=== PATIENT | female | born 1950 | race Caucasian/White ===

== ENCOUNTER 2016-11-25 19:14 | Inpatient (IN) ==
[2016-11-25 21:11] LABS: Basophils % 0.1 %; Eosinophils % 0.2 %; Hematocrit 30.5 % (35.3-44.9); Hemoglobin 10.8 g/dL (11.5-15.4); Immature Granulocytes % 0.8 % (0-4); Lymphocytes # 1.5 K/mcL (0.6-4.6); Lymphocytes % 12.7 %; Mean Corpuscular HGB Conc 35.4 g/dL (31.6-35.5); Mean Corpuscular Hemoglobin 30.3 pg (28.0-33.3); Mean Corpuscular Volume 85.7 fL (83.0-100.0); Mean Platelet Volume 9.7 fL (9.4-12.4); Monocytes # 0.9 K/mcL (0.0-1.3); Monocytes % 7.9 %; Platelet Count 370 K/mcL (140-400); Red Blood Count 3.56 M/mcL (3.82-4.97); Red Cell Distribution Width 16.8 % (11.5-14.5); Segmented Neutrophils % 78.3 %
[2016-11-25 21:16] LABS: Calcium 8.1 mg/dL (8.6-10.8); Potassium 2.6 mEq/L (3.5-4.5)
[2016-11-25 21:34] LABS: Platelet Estimate Normal (Normal)
--- NOTE | 2016-11-25 22:11 | Emergency Department Note ---
START Narrative - START START: I examined this patient and my medical decision-making was reviewed with the COMPUTER TERMINAL OPERATOR/PA/Advanced Practice Nurse/Resident Physician. I agree with the documented findings, disposition and treatment plan as described except to the extent set forth below. ED attending note: Patient seen with emergency medicine resident Dr. Kamara. Please see a copy of his note for details of the H&P, evaluation, management and disposition of this patient. We independently had [id number] contact with the patient Briefly: 66-year-old female history of liver cancer that being worked up diagnosed in May comes in with aches all over swelling of the ankles just feeling differential has a very odd distant affect. Follows commands. She was had a hypotensive blood pressure in triage in the high 80s. Patient IV fluid CBC shows a bump in the white count but otherwise the hemogram is negative calcium a touch low she has acute kidney injury with elevated creatinine 1.56 and her potassium is low at 2.6. Does not be repleted. She is going to CT the head normal LFTs. Admission is anticipated. Disposition pending
[2016-11-25] MEDS ORDERED: 0.9 % Sodium Chloride 1,000 ML IVC ONE (22:16)
[2016-11-25 22:27] LABS: Albumin 2.5 g/dL (3.5-5.0); Albumin/Globulin Ratio 0.6 (1.1-2.2); Bilirubin,Direct 14.6 mg/dL (0.0-0.5); Bilirubin,Indirect 5.5 mg/dL (0.0-1.2); Bilirubin,Total 20.1 mg/dL (0.2-1.2); Globulin 3.9 g/dL (2.4-3.5); Total Protein 6.4 g/dL (6.0-8.3)
--- NOTE | 2016-11-25 22:41 | Emergency Department Note ---
Disposition Clinical Impression: Hypokalemia, Hyponatremia, Malignancy, YU (acute kidney injury) Disposition: Admitted As Inpatient Condition: Fair General Adult HPI - General Chief complaint: ED Shortness of Breath/Dyspnea Stated complaint: swelling ft/ankles/vomiting/sob/pain Time Seen by Provider: 11/25/16 22:05 Source: patient Mode of arrival: wheelchair Limitations: no limitations Nursing Notes Reviewed: Yes Vital Signs Reviewed: Yes - History of Present Illness HPI Narrative: 66-year-old female presents to the ER due to nausea vomiting abdominal pain, swelling in her feet and generalized weakness. Pt Subjective Complaint: Bilateral swelling in feet, vomiting, abdominal pain Onset (ago): day(s) Location: abdomen Radiation: abdomen Pain Severity: severe Pain Scale: 10 Consistency: intermittent Improves with: nothing Worsens with: nothing Associated symptoms: Reports: nausea/vomiting, weakness. Denies: confusion, chest pain, cough, shortness of breath Treatments Prior to Arrival: none - Related Data Allergies Allergy/AdvReac Type Severity Reaction Status Date / Time ciprofloxacin [From Cipro] Allergy Rash Verified 11/25/16 19:50 Sulfa (Sulfonamide Allergy Rash Verified 11/25/16 19:50 Antibiotics) codeine AdvReac Itching Verified 11/25/16 19:50 All systems ED: reviewed and negative except as stated. Constitutional: Denies: fever Cardiovascular: Denies: chest pain Respiratory: Denies: cough, dyspnea Gastrointestinal: Reports: abdominal pain, nausea, vomiting, diarrhea Genitourinary: Denies: urgency, dysuria Past Medical History - Past Medical History Attestation: Yes The following information was validated with the patient. Source: patient Medical history: Reports: cancer, diabetes Surgical history: Reports: non-contributory Psychiatric history: Reports: depression WELFARE INVESTIGATOR history: Reports: no WELFARE INVESTIGATOR history - Social History Smoking Status: Never smoker Smokeless Tobacco Status: No Alcohol use: Reports: none Drug use: Reports: none Physical Exam - General Limitations: no limitations General appearance: alert, in no apparent distress - Head Head exam: atraumatic, normocephalic, other (Jaundice of the face and neck.) - Eye Eye exam: Present: scleral icterus - ENT ENT exam: normal exam - Neck Neck exam: Present: normal inspection - Chest Chest inspection: Present: normal inspection, symmetric chest wall rise. Absent : tenderness - Respiratory Respiratory exam: Present: normal lung sounds bilaterally. Absent: respiratory distress, wheezes - Cardiovascular Cardiovascular exam: Present: regular rate, normal rhythm, irregular rhythm - Abdominal Exam Abdominal exam: Present: soft, tenderness (Tenderness to palpation along the right upper and epigastric area.). Absent: guarding, rigidity - Extremities Exam Extremities exam: Present: normal inspection, full ROM - Expanded Lower Extremity Exam Hip/Pelvis exam: Present: normal inspection, full ROM Upper leg exam: Present: normal inspection, full ROM Knee exam: Present: normal inspection, full ROM Lower leg exam: Present: normal inspection, full ROM, swelling (2+ bilateral lower extremity pitting edema) Ankle exam: Present: normal inspection, full ROM Foot/toe exam: Present: normal inspection, full ROM - Neurological Exam Neurological exam: Present: alert, oriented X3 - Psychiatric Psychiatric exam: Present: normal affect, normal mood - Skin Skin exam: Present: warm, dry, intact, other (Jaundice) Course Course Narrative: 66-year-old female reported history of lung, liver and gallbladder cancer who presents to the ER with a chief complaint of nausea, vomiting, diarrhea, abdominal pain, swelling in her legs. Patient states that she has not felt well for the last several days. She states that she does not eat much at home. She states that she has intermittent vomiting and diarrhea which are chronic. She also states that she saw her primary care provider today who thought that she should be admitted. Patient states that her PCP was unable to admit her. Patient reports swelling in her lower extremities. She states that she follows with oncology at [facility] but has only seen him once. No other complaints. Plan for patient is EKG, abdominal labs. She was hypotensive in triage. We will give IV fluids and reassess. - Reevaluation(s) Reevaluation #1: Discussed results of imaging and lab work with the patient. She now reports that she might just wanted go home until Friday when she goes for the biopsy. She is agreeable to waiting to be evaluated by the hospitalist prior to making a decision. - Consultations Consultation #1: I discussed this patient with the admitting hospitalist. He reports that a hospitalist will be down to evaluate the patient prior to accepting. Vital Signs Temperature 97.7 F 11/25/16 19:50 Pulse Rate 78 11/25/16 19:50 Respiratory Rate 20 11/25/16 19:50 Blood Pressure 83/61 11/25/16 19:50 O2 Sat by Pulse Oximetry 98 11/25/16 19:50 Temperature 97.7 F 11/25/16 19:50 Pulse Rate 71 11/26/16 01:39 Respiratory Rate 16 11/26/16 02:06 Blood Pressure 106/58 11/26/16 02:06 O2 Sat by Pulse Oximetry 100 11/26/16 01:39 Oxygen Delivery Oxygen Delivery Room Air Medical Decision Making - MDM Narrative Medical decision making narrative: 66-year-old female presents to the ER with multiple complaints. Her lab work here does show an elevated bilirubin as well as acute kidney injury. She is hypokalemic and hyponatremic. Her CT scan shows worsening of her fever and pulmonary lesions. She was evaluated by the hospitalist accepted for further management. - Lab Data Lab results reviewed: Yes I reviewed the patient's lab results. Result diagrams: 11/25/16 20:41 11/25/16 20:41 Lab Results 11/25/16 11/25/16 11/25/16 Range/Units 20:41 20:41 20:41 WBC 11.5 H (4.3-11.1) K/mcL RBC 3.56 L (3.82-4.97) M/mcL Hgb 10.8 L (11.5-15.4) g/dL Hct 30.5 L (35.3-44.9) % MCV 85.7 (83.0-100.0) fL MCH 30.3 (28.0-33.3) pg MCHC 35.4 (31.6-35.5) g/dL RDW 16.8 H (11.5-14.5) % Plt Count 370 (140-400) K/mcL MPV 9.7 (9.4-12.4) fL Immature Gran % 0.8 (0-4) % Seg Neutrophils % 78.3 % Lymphocytes % 12.7 % Monocytes % 7.9 % Eosinophils % 0.2 % Basophils % 0.1 % Neutrophils # 9.0 H (1.6-8.9) K/mcL Lymphocytes # 1.5 (0.6-4.6) K/mcL Monocytes # 0.9 (0.0-1.3) K/mcL Eosinophils # 0.0 (0.0-0.6) K/mcL Basophils # 0.0 (0.0-0.2) K/mcL Platelet Estimate Normal (Normal) PT (9.4-12.1) Seconds INR Sodium 126 L (136-145) mEq/L Potassium 2.6 L (3.5-4.5) mEq/L Chloride 83 L (98-109) mEq/L Carbon Dioxide 24 (19-29) mEq/L BUN 37 H (7-20) mg/dL Creatinine 1.59 H (0.57-1.11) mg/dL Est GFR ( Amer) 39 L (> 60) Est GFR (Non-Af Amer) 33 L (> 60) BUN/Creatinine Ratio 23 (6-26) Glucose 77 (70-99) mg/dL Calculated Osmolality 269 L (280-300) Calcium 8.1 L (8.6-10.8) mg/dL Total Bilirubin 20.1 H (0.2-1.2) mg/dL Direct Bilirubin 14.6 H (0.0-0.5) mg/dL Indirect Bilirubin 5.5 H (0.0-1.2) mg/dL AST 169 H (5-34) Units/L ALT 109 H (0-55) Units/L Alkaline Phosphatase 892 H (38-126) Units/L Troponin I 0.01 (0-0.03) ng/mL B-Natriuretic Peptide (0-100) pg/mL Serum Total Protein 6.4 (6.0-8.3) g/dL Albumin 2.5 L (3.5-5.0) g/dL Globulin 3.9 H (2.4-3.5) g/dL Albumin/Globulin Ratio 0.6 L (1.1-2.2) 11/25/16 11/25/16 Range/Units 20:41 22:59 WBC (4.3-11.1) K/mcL RBC (3.82-4.97) M/mcL Hgb (11.5-15.4) g/dL Hct (35.3-44.9) % MCV (83.0-100.0) fL MCH (28.0-33.3) pg MCHC (31.6-35.5) g/dL RDW (11.5-14.5) % Plt Count (140-400) K/mcL MPV (9.4-12.4) fL Immature Gran % (0-4) % Seg Neutrophils % % Lymphocytes % % Monocytes % % Eosinophils % % Basophils % % Neutrophils # (1.6-8.9) K/mcL Lymphocytes # (0.6-4.6) K/mcL Monocytes # (0.0-1.3) K/mcL Eosinophils # (0.0-0.6) K/mcL Basophils # (0.0-0.2) K/mcL Platelet Estimate (Normal) PT 14.9 H (9.4-12.1) Seconds INR 1.4 Sodium (136-145) mEq/L Potassium (3.5-4.5) mEq/L Chloride (98-109) mEq/L Carbon Dioxide (19-29) mEq/L BUN (7-20) mg/dL Creatinine (0.57-1.11) mg/dL Est GFR ( Amer) (> 60) Est GFR (Non-Af Amer) (> 60) BUN/Creatinine Ratio (6-26) Glucose (70-99) mg/dL Calculated Osmolality (280-300) Calcium (8.6-10.8) mg/dL Total Bilirubin (0.2-1.2) mg/dL Direct Bilirubin (0.0-0.5) mg/dL Indirect Bilirubin (0.0-1.2) mg/dL AST (5-34) Units/L ALT (0-55) Units/L Alkaline Phosphatase (38-126) Units/L Troponin I (0-0.03) ng/mL B-Natriuretic Peptide 29 (0-100) pg/mL Serum Total Protein (6.0-8.3) g/dL Albumin (3.5-5.0) g/dL Globulin (2.4-3.5) g/dL Albumin/Globulin Ratio (1.1-2.2) - Radiology Data Radiology results reviewed: Yes I reviewed the patient's radiology results. Chest X-Ray 11/25/16 20:10 IMPRESSION: Numerous pulmonary nodules throughout both lungs, compatible with metastatic disease. Age indeterminate compression deformity of a mid thoracic vertebral body, approximately T7. Correlate with focal tenderness. If present, further evaluation with cross-sectional imaging is recommended. D/ / Ashok Barrett MD / Ashok Barrett MD Interpreting Provider: Ashok Barrett MD Abdomen/Pelvis CT 11/25/16 23:03 IMPRESSION: Significant progressive metastatic disease involving the liver and mild progression of metastatic disease involving the lung bases. No definite acute process. D/ / Sangeeta Aviles MD / Sangeeta Aviles MD Interpreting Provider: Sangeeta Aviles MD - EKG Data EKG #1 EKG attestation: Yes I reviewed and interpreted this EKG. EKG results narrative: EKG demonstrates sinus rhythm with a rate of 63 bpm. Normal axis. MI interval 131 QRS duration 81 QTc 412 T wave flattening in leads [address] elevations or depressions. No acute ischemic findings. No significant changes from previous EKG dated 01/25/09. S.B.A.R. - S.B.A.R. Situation: Demographics, MOA Background: Presenting Complaint, Relevant PMH, Meds, & Allergies Assessment: Vital Signs, Course and respsone to treatment, Exam Concerns, Patient/Family Expectation, Pertinant Lab Results, Outstanding Labs Recommendation: Barrier(s) to disposition, Recommendation based on pending studies, treatments, or consults S.B.A.R. Report Given to: Dr. Quinones
[2016-11-25 23:10] LABS: INR 1.4; Prothrombin Time 14.9 Seconds (9.4-12.1)
[2016-11-26] MEDS ORDERED: 0.9 % Sodium Chloride 1,000 ML IVC ONE (00:01)
[2016-11-26] MEDS ORDERED: Naloxone 0.4 MG/ML INJ IVP PRN (02:11)
[2016-11-26] MEDS ORDERED: Acetaminophen 325 MG TABLET PO PRN (02:11)
--- NOTE | 2016-11-26 02:28 | Internal Med History&Physical ---
Date of Encounter: 11/26/16 Time of Encounter: 01:35 Assessment and Plan (1) Metastatic cancer Current visit: Yes Status: Acute 1. Primary malignancy not yet established. 2. Patient missed two prior biopsy appointments at [facility]. 3. Will admit and schedule CT guided biopsy through IR. 4. Consult Hem/ONC. (2) YU (acute kidney injury) Current visit: Yes Status: Acute 1. Pt received two liters in saline in ER. 2. Follow renal function and consult nephrology if necessary. 3. Despite her BLE edema (new), she appears intravascularly dry. (3) Hypokalemia Current visit: Yes Status: Acute 1. Correct with PO potassium. 2. Monitor electrolytes and correct as needed. (4) Hyponatremia Current visit: Yes Status: Acute 1. Suspect this is SIADH from underlying malignancy. 2. Fluid restrict at 1500 ml per day. 3. Follow serial sodium levels. (5) DVT prophylaxis Current visit: Yes Status: Acute 1. Heparin SQ. Internal Medicine - H&P: HPI Chief complaint: jaundice; FTT; metatstatic cancer Admitted From: Emergency Dept Plans for Post Hospital Care: Home History of present illness: Ms. Cornelius is a 66 year old female who came to the ER tonight after having complaints of fatigue, weakness, unintentional weight loss, jaundice, and metastatic cancer of unknown primary. She saw her PCP yesterday who recommended she come to the ER. She later came to the ER later because her symptoms progressed. She was due to have biopsy at [facility] twice in the last few months, but she failed to make those appointments due to recent family deaths. Since the original finding in May 2016, she has had progression of her disease without a formal diagnosis. She has also developed jaundice, bilateral lower extremity edema, and further weight loss. Workup in ER revealed the patient to have significant elevation of her bilirubin level and LFTs. Additionally, she is significantly hypokalemic. ER recommended admission, but patient was initially unwilling to be admitted. She has a tentatively scheduled biopsy at [facility] for later this week. I saw and evaluated patient in the ER. I discussed with her and her son at length. Given her profound symptoms, marked laboratory abnormalities, and CT findings of diffuse metastatic disease, I recommended patient be admitted for CT -guided biopsy and oncology consultation. Patient was reluctant to be admitted here, but she also did not want to travel to [place]. I discussed with her son and offered admission here as well as oncology consultation and attempt at CT-guided biopsy int the next 24-48 hrs. She agreed and to be admitted here and did not want to travel to [place]. I therefore am admitting her try to coordinate CT-guided biopsy along with oncology consultation. Past Med Surg Social Fam HX - Past Medical History Attestation: Yes The following information was validated with the patient. Source: patient, old records reviewed, obtained from family Medical history: cancer (undiagnosed primary), diabetes Psychiatric history: depression - Past Surgical History Surgical History: no surgical history - Social History Smoking Status: Never smoker Smokeless Tobacco Status: No Alcohol use: none Drug use: none Occupational status: retired Current living situation: Home - Independent Recent Out of Country Travel Within the Last 8 Weeks: No Additional social history: recently in the last month - Family History Mother Living Status: Hx Family Cancer: Yes Father History Unknown: Yes Living Status: Internal Medicine - H&P: Meds Allergies ciprofloxacin [From Cipro] Allergy (Verified 11/25/16 19:50) Rash Sulfa (Sulfonamide Antibiotics) Allergy (Verified 11/25/16 19:50) Rash codeine Adverse Reaction (Verified 11/25/16 19:50) Itching - Constitutional Constitutional: anorexia, fatigue, malaise, weakness, weight loss, no chills, no fever(s) - EENT Eyes: no blurry vision, no change in vision Ears: no ear pain, no tinnitus Nose, mouth and throat: no nasal congestion, no sinus pressure, no sore throat - Cardiovascular Cardiovascular ROS IM: no chest pain, no dyspnea, no dyspnea on exertion, no orthopnea - Respiratory Respiratory: no cough, no dyspnea, no hemoptysis, no dyspnea on exertion, no wheezing, no chest congestion - Gastrointestinal Gastrointestinal: abdominal pain, early satiety, nausea, vomiting, no diarrhea, no hematemesis, no hematochezia, no melena - Genitourinary Genitourinary: no dysuria, no flank pain, no hematuria - Musculoskeletal Musculoskeletal ROS IM: muscle cramps, muscle weakness, no arthralgias, no myalgias - Integumentary Integumentary IM: jaundice, no rash - Neurological Neurological ROS: weakness, no focal weakness, no frequent falls, no headache(s) - Psychiatric Psychiatric: anhedonia - Endocrine Endocrine IM: no polydipsia, no polyuria - Hematologic/Lymphatic Hematologic/Lymphatic: easy bruising - Allergic/Immunologic Allergic/Immunologic: no wheezing, no GI upset with certain foods - Constitutional Vitals: Temp Pulse Resp BP Pulse Ox 97.7 F 71 16 106/58 100 11/25/16 19:50 11/26/16 01:39 11/26/16 02:06 11/26/16 02:06 11/26/16 01:39 General appearance: Present: cachectic, cooperative, A&O X 3, pleasant, underweight - Head Head exam: Present: atraumatic, normal inspection - Expanded Head Exam Head exam expanded: Absent: abrasion, contusion, general tenderness - Eye Eye exam: Present: EOMI, PERRL, scleral icterus Pupils: Present: normal accommodation - ENT ENT exam: Present: mucous membranes dry, normal exam, normal oropharynx - Neck Neck exam general surgery: Present: full ROM, supple. Absent: lymphadenopathy, tenderness, thyromegaly - Respiratory Respiratory exam: Present: CTAB. Absent: chest wall tenderness, rales, rhonchi , wheezes - Cardiovascular Cardiovascular exam: Present: RRR, +S1, +S2. Absent: diastolic murmur, systolic murmur - GI/Abdominal GI/Abdominal exam: Present: firm, hepatomegaly, tenderness (RUQ), no peritoneal signs. Absent: guarding, rebound, splenomegaly - Extremities Exam Extremities exam: Present: pedal edema (BLE edema), warm. Absent: calf tenderness, joint swelling, tenderness - Back Exam Back exam: Present: normal inspection. Absent: CVA tenderness (L), CVA tenderness (R) - Neurological Exam Neurological exam: Present: alert, CN II-XII intact, oriented X3, no focal deficits Additional comments: + generalized weakness and fatigue - Psychiatric Psychiatric exam: Present: flat affect. Absent: anxious - Skin Skin exam: Present: dry, warm Additional comments: + jaundiced Internal Med - H&P Results - Labs CBC & Chem 7: 11/25/16 20:41 11/25/16 20:41 - EKG Data -: EKG Interpreted by Myself - EKG Data Prior EKG available for review: no EKG comments: 11/26/16 02:38 Sinus rhythm; no acute ST-T changes - Diagnostic Studies Chest x-ray Status: image reviewed by me (Multiple pulmonary nodules)
[2016-11-26] MEDS ORDERED: *HR* Morphine 2 MG/ML SYRINGE IVP PRN (04:11)
[2016-11-26] MEDS ORDERED: traMADol 50 MG TABLET PO PRN (04:13)
[2016-11-26 06:53] LABS: INR 1.4; Prothrombin Time 14.8 Seconds (9.4-12.1)
[2016-11-26 06:56] LABS: Activated Partial Thrombo Time 22.1 Seconds (26.0-36.0)
[2016-11-26 07:05] LABS: Albumin/Globulin Ratio 0.6 (1.1-2.2); Bilirubin,Total 17.1 mg/dL (0.2-1.2); Calcium 7.3 mg/dL (8.6-10.8); Globulin 3.4 g/dL (2.4-3.5); Magnesium 0.9 mg/dL (1.6-2.6); Total Protein 5.4 g/dL (6.0-8.3)
[2016-11-26 07:14] LABS: Basophils % 0.1 %; Eosinophils % 0.4 %; Hematocrit 26.3 % (35.3-44.9); Hemoglobin 9.6 g/dL (11.5-15.4); Immature Granulocytes % 0.5 % (0-4); Lymphocytes # 0.9 K/mcL (0.6-4.6); Lymphocytes % 10.1 %; Mean Corpuscular HGB Conc 36.5 g/dL (31.6-35.5); Mean Corpuscular Hemoglobin 31.1 pg (28.0-33.3); Mean Corpuscular Volume 85.1 fL (83.0-100.0); Mean Platelet Volume 10.1 fL (9.4-12.4); Monocytes # 0.8 K/mcL (0.0-1.3); Monocytes % 8.3 %; Neutrophils # 7.5 K/mcL (1.6-8.9); Platelet Count 298 K/mcL (140-400); Red Blood Count 3.09 M/mcL (3.82-4.97); Segmented Neutrophils % 80.6 %
[2016-11-26] MEDS ORDERED: Potassium Chloride 40 MEQ, Lidocaine 1% 2 ML in D5% in Water 500 ML IVPB STA (08:09)
[2016-11-26] MEDS: Pantoprazole 40 MG VIAL IVP SCH (08:10)
[2016-11-26] MEDS: *HR* Heparin 5,000 UNIT/ML VIAL SQ SCH ×2 (08:21→17:14)
--- NOTE | 2016-11-26 09:47 | Event Note ---
<Barrington Bob - Last Filed: 11/26/16 10:46> Date of Encounter: 11/26/16 Time of Encounter: 09:25 66 y/o female admitted for cc of fatigue, weakness, jaundince. CT abdomen/ pelvis and Chest shows metastatic cancer unknown primary. Patient complains of low back pain and abdominal pain today. Vitals: Temp 97.6, HR 69, RR 16, BP 92/59, O2-95 room air Exam: Gen: catechetic appearance, weak, jaundice Heart: RRR no murmur Lungs: CTAB Abdomen: RUQ tenderness, normal bowel sounds, hepatomegaly. Extremities: 2+ pedal edema b/l 1. Metastatic lung cancer: Imaging shows extensive metastatsis to lungs, liver and gallbladder. Patient was scheduled for biopsy at [facility] but did not follow up. IR and hem/onc consulted. 2. Hypokalemia: Looking at patients ECW notes she has had multiple appointments with nausea and vomiting. Potassium level 2.0. Replacing with PO and IV. 3. YU: Creatinine 1.59 on admission. NOw 1.27. Received 2L fluid in ER. Will follow by BMP. Patient has BLE edema but is dry. Will have to balance giving fluids with worsening edema as patient also has hypoalbuminemia and hyponatremia. 4. Hyperbilirubinemia: Total adilson 20.1 on admission with direct being 14.6. This morning bilirubin is 17. Most likely obstruction from metastatic cancer. Will consult GI. 5. Pedal edema: b/l 2+ pedal edema hypoalbumenemia a contributing factor most likely due to metastatic cancer to liver. Albumin level 2.0. Will obtain echocardiogram as well. 6. Hyponatremia: stable. sodium level 127. may be 2nd to SIADH from underlying malignancy. restricting fluids to 1500cc daily. Patient has received 2L in past 24 hours. 7. Severe nutritional deficiency: Patient has severe weight loss 2nd to metastatic cancer. BMI of 16.3. Dietitian on board. Will continue cardiac diet. <Arturo Mcgraw - Last Filed: 11/26/16 12:04> Date of Encounter: 11/26/16 Metastatic cancer, unknown primary. Possible biliary obstruction with hyperbilirubinemia. GI consulted to consider possible options like biliary stents. Case discussed with the patient, biopsy to be performed by interventional radiology today. Order venous Doppler for severe lower extremity edema. Palliative care services consulted.
[2016-11-26] MEDS ORDERED: Magnesium Sulfate 4 GM in D5% in Water 100 ML IVPB STA (10:32)
[2016-11-26] MEDS ORDERED: *HR* FentaNYL (PF) 100 MCG/2 ML VIAL IV PRN (12:18)
[2016-11-26] MEDS ORDERED: *HR* Midazolam HCl 2 MG/2 ML VIAL IV PRN (12:18)
--- NOTE | 2016-11-26 12:20 | Pre-Sedation Evaluation ---
Pre-sedation evaluation - Pre-sedation checklist Recent Vitals: Last Vital Signs Temp 97.6 F 11/26/16 07:35 Pulse 69 11/26/16 07:35 Resp 16 11/26/16 07:35 BP 92/59 11/26/16 07:35 Pulse Ox 95 11/26/16 08:32 Airway Assessment: Patient can open mouth completely, TMJ function normal, Micrognathia (under-bite, receding chin) absent, Neck with adequate range of motion Dentition: No loose teeth or bridges Possible difficult airway: No ASA Classification *see protocol: CLASS III-Severe systemic disease Plan of Care: Pt appropriate candidate for procedure/moderate/conscious sedation , Risks/benefits of procedure/sedation discussed w/ patient/family
[2016-11-26] MEDS ORDERED: 0.9 % Sodium Chloride 1,000 ML ONE (12:31)
[2016-11-26] MEDS: Ondansetron 4 MG/2 ML VIAL IVP PRN (15:35)
[2016-11-26] MEDS ORDERED: Diphenoxylate/Atropine 1 TAB TABLET PO PRN (15:37)
--- NOTE | 2016-11-26 15:41 | Palliative - Consult Note ---
Date of Encounter: 11/26/16 Time of Encounter: 15:40 - Assessment and Plan (1) Cancer associated pain Current Visit: Yes Status: Acute Assessment and plan: D/W Pharmacist who is in process of re-ordering pt home medications with MS Contin and Morphine for breakthrough. Patient also states she occasionally uses Tramadol which works well for her. Has only utilized x1 last 24 hours. Will monitor (2) Nausea Current Visit: Yes Status: Acute Assessment and plan: Continue Zofran PRN. Patient continues with nausea. Educated her on asking for medications and it is available on PRN basis. (3) Diarrhea Current Visit: Yes Status: Acute Assessment and plan: Patient states diarrhea has been ongoing and happens every time she eats. Will begin Lomotil and monitor. States Dr. Hudson had her on 2 different medications for diarrhea, but she cannot remember what they were. Qualifiers: Diarrhea type: unspecified type Qualified Code(s): R19.7 - Diarrhea, unspecified (4) Depression Current Visit: Yes Status: Acute Assessment and plan: Since also having issues with appetite and sleep, will begin Remeron 15mg q hs and monitor Qualifiers: Depression Type: unspecified Qualified Code(s): F32.9 - Major depressive disorder, single episode, unspecified (5) Goals of care, counseling/discussion Current Visit: Yes Status: Acute Assessment and plan: This unfortunate pt lost her mother recently, and her suddenly with an NE. She states she is extremely depressed already, and also knowing this is most likely cancer. Son and daughter are at the bedside. Biopsy completed earlier today. Awaiting echo and doppler studies. Patient currently lives alone - children both live locally. She is normally independent in all ADL's. No advanced directives in place as of yet. She is quite emotional at this time, and states she has had a great deal of traffic in and out and desiring to rest. Palliative will continue to follow and await biospy results, assist with symptom management. Goals of care will be addressed throughout hospital stay. (6) Metastatic cancer Current Visit: Yes Status: Acute Palliative-CN HPI - Data of Consult Requesting Physician: Arturo Mcgraw Primary Care Provider: Flor Hudson - Consult Narrative History of present illness: Ms. Cornelius is a 66 year old female who was in process of workup for suspected metastatic cancer, who presented with increased abd pain, lower extremity edema , nausea. She was seen yesterday by Dr. Flor Hudson who recommended she come to hospital. Patient had been scheduled for biospy at [facility] later this week , but opted to have that performed here, and this was completed this am. Patient described a great deal of turmoil and loss with the recent of her mother, and stated her unexpectedly 3 weeks ago from heart attack. Upon my visit, son and daughter are at bedside. Patient just back from bathroom and complaining of diarrhea every time she eats. Intermittent nausea and also right abd pain. She states lower extremity edema has increased as well. Palliative care consulted to assist with goals of care discussion and symptom management in this very pleasant and unfortunate pt. CC: Arturo Mcgraw Past Med Surg Social Fam HX - Past Medical History Medical history: cancer (undiagnosed primary), diabetes Psychiatric history: depression - Past Surgical History Surgical History: no surgical history - Social History Smoking Status: Never smoker Smokeless Tobacco Status: No Alcohol use: none Drug use: none - Family History Mother Living Status: Hx Family Cancer: Yes Father History Unknown: Yes Living Status: Medications and Allergies Dicyclomine [Dicyclomine] 20 mg PO Q8H PRN 11/26/16 [History] Furosemide [Lasix] 40 mg PO DAILY 11/26/16 [History] Insulin Glargine,Hum.rec.anlog [Lantus Solostar] 10 unit SQ HS 11/26/16 [History ] Metformin HCl [Metformin HCl ER] 500 mg PO BID 11/26/16 [History] Morphine Sulfate [Morphine Sulfate] 15 mg PO Q4H PRN 11/26/16 [History] Potassium Chloride [Potassium Chloride] 20 meq PO BID 11/26/16 [History] Sennosides/Docusate Sodium [Senna Plus] 1 each PO BID PRN 11/26/16 [History] Simvastatin [Zocor] 20 mg PO DAILY 11/26/16 [History] Spironolact/Hydrochlorothiazid [Aldactazide 25-25 Tablet] 1 each PO BID [History] Allergies ciprofloxacin [From Cipro] Allergy (Verified 11/25/16 19:50) Rash Sulfa (Sulfonamide Antibiotics) Allergy (Verified 11/25/16 19:50) Rash codeine Adverse Reaction (Verified 11/25/16 19:50) Itching All systems: reviewed and no additional remarkable complaints except as stated ( weight loss, abd pain, diarrhea, nausea, weakness, jaundice) Palliative Care-Exam - Constitutional Vitals: Temp Pulse Resp BP Pulse Ox 97.4 F L 66 16 102/68 99 11/26/16 13:22 11/26/16 15:06 11/26/16 15:06 11/26/16 15:06 11/26/16 15:06 General appearance: Present: thin - Head Head Exam: Present: normal inspection, normocephalic - Eye Eye exam: Present: normal appearance, PERRL, scleral icterus - Respiratory Respiratory exam: Present: CTAB - Cardiovascular Cardiovascular exam: Present: +S1, +S2 - GI/Abdominal Exam GI/Abdominal exam: Present: distended, mass, tenderness additional comments: RUQ firm to palpation - Extremities Exam Extremities exam: Present: normal capillary refill, normal inspection - Neurological Exam Neurological exam: Present: alert, oriented X3, strengths equal and symetr throughout - Psychiatric Psychiatric exam: Present: depressed - Skin Skin exam: Present: dry Internal Medicine - CN: Reslt - Labs CBC & Chem 7: 11/26/16 06:14 11/26/16 06:14 - ABG Interpretation ABG results: PT/INR, D-dimer PT 14.8 Seconds (9.4-12.1) H 11/26/16 06:14 Consult Discharge Plan - Plan Referrals: Flor Hudson MD [Primary Care Provider] - 12/03/16 1:45 pm () Palliative Quality Palliative Quality: Screen for Code Status: NA (discuss later), Screen for Goals of Care: NA (awaiting biopsy), Screen for Pain: Yes, If Pain Regimen Started, Initiate Bowel Regimen: NA (diarrhea), Screen for Nausea/Vomitting: Yes
--- NOTE | 2016-11-26 16:14 | Oncology Inp Consult Note ---
<Randee Srinivasan E - Last Filed: 11/26/16 16:03> Date of Encounter: 11/26/16 Time of Encounter: 14:00 - Data of Consult Patient: new to practice Consult date: 11/26/16 Requesting Physician: Arturo Mcgraw Primary Care Provider: Flor Hudson - Consult Narrative Reason for consult: Metastatic cancer History of present illness: Ms. Cornelius is a 66 year old female treated to [facility] through the emergency department with complaints of fatigue, weakness, unintentional weight loss, jaundice, metastatic cancer of unknown primary. She was seen by her primary care provider who recommended she come to the ER. She has had biopsies [facility] times that has not kept his appointment. She was not able to keep these appointments because she has had the recent of her mother followed by an unexpected of her . The patient reports that she has had an unintentional weight loss. She states her normal weight is about 118 and at the time of admission her weight was 94.6 pounds. On admission she was found to have a white blood cell count of 9.3, hemoglobin of 9.6 and platelets 298,000. Potassium was 2.0, sodium 127, chloride 87, BUN 34, and creatinine 1.27. Her total bilirubin was 20.1, direct 14.6 and indirect 5.5, AST 143, ALT [address] and alkaline phosphatase 738. CT of abdomen and pelvis indicated multiple bilateral pulmonary nodules. Several these slightly increased compared to previous study. It was also significant progression of metastatic disease in the liver. There was also soft tissue nodularity along the wall the gallbladder. The spleen pancreas gallbladder adrenal glands and kidneys were without acute processes. Patient was limited due to lack of contrast. On she had a CT scan of the abdomen and pelvis at [facility] which indicated innumerable bilateral pulmonary nodules with the largest being in the right that was 1.3 cm and the largest on the left being 1.1 cm this was compatible with metastatic disease. There were also innumerable who attenuated lesions identified throughout the liver compatible with metastatic disease there was also a large confluent lesion in the left hepatic lobe that measured 10.5 x 5.5 cm in the lowered fluid lesion within the right hepatic lobe measuring 8.5 x 6.6 cm. The pancreas was unremarkable. The pancreatic head was displaced secondary to enlargement of the caudate lobe of the metastatic involvement. There was circumferential involvement of the portal vein and soft tissue densities seen invading the gallbladder compatible with metastatic involvement. CT-guided biopsy of the liver today. According to records obtained from [facility] She was seen by Dr Rick Alva on 10/01/2016. ordering to this note patient had a history of squamous cell carcinoma this scan of the left elbow and left leg in January 2015 and at that time was seen by Dr. Avila and Dr. Land [facility]. She reported a family history of breast cancer in a sister, and multiple aunts. Liver cancer in a maternal aunt and liver cancer and a maternal grandmother. Tumor markers on 10/01/2016 indicated a CEA of 267.4, CA 1 2583, and a CA-19-9 of 164,347. Her sodium was low at that time at 131, chloride 80, potassium 2.3 , BUN 18 creatinine 0.81, GFR greater than 60, white blood cell count of 12.4 hemoglobin 11.5, platelets of 546,000 She also had a CAT scan of the chest on 10/04/2016 indicated bilateral pulmonary nodules varying in sizes. Partially visualized liver that showed multiple lesions felt to represent metastatic disease. Never had a colonoscopy. She had a mammogram on 08/16/2015 that showed no mammographic evidence of malignancy. I have ordered a CEA, CA-19-9, recheck count, ferritin, iron profile, TSH and T4 , vitamin B12, folate, LDH, SPEP, and flow cytometry. The patient did state that she wanted to receive her care at [facility] and did not want to return to [facility]> Past Med Surg Social Fam HX - Past Medical History Medical history: cancer (undiagnosed primary), diabetes, hypertension, other ( squamous cell cancer of skin (per [facility])) Psychiatric history: depression - Past Surgical History Surgical History: no surgical history, herniorrhaphy, other (tubaligation, bladder surgery) - Social History Smoking Status: Never smoker Smokeless Tobacco Status: No Alcohol use: none Drug use: none Current living situation: Home Recent Out of Country Travel Within the Last 8 Weeks: No Exposure or Possible Exposure to Illness During Travel: No - Family History Mother Living Status: Hx Family Cancer: Yes Father History Unknown: Yes Living Status: - Additional Family History Additional family history: breast cancer sister, breast cancer maternal aunts, liver cancer maternal aunt and maternal grandmother Medications and Allergies Dicyclomine [Dicyclomine] 20 mg PO Q8H PRN 11/26/16 [History] Furosemide [Lasix] 40 mg PO DAILY 11/26/16 [History] Insulin Glargine,Hum.rec.anlog [Lantus Solostar] 10 unit SQ HS 11/26/16 [History ] Metformin HCl [Metformin HCl ER] 500 mg PO BID 11/26/16 [History] Morphine Sulfate [Morphine Sulfate] 15 mg PO Q4H PRN 11/26/16 [History] Potassium Chloride [Potassium Chloride] 20 meq PO BID 11/26/16 [History] Sennosides/Docusate Sodium [Senna Plus] 1 each PO BID PRN 11/26/16 [History] Simvastatin [Zocor] 20 mg PO DAILY 11/26/16 [History] Spironolact/Hydrochlorothiazid [Aldactazide 25-25 Tablet] 1 each PO BID [History] Allergies ciprofloxacin [From Cipro] Allergy (Verified 11/25/16 19:50) Rash Sulfa (Sulfonamide Antibiotics) Allergy (Verified 11/25/16 19:50) Rash codeine Adverse Reaction (Verified 11/25/16 19:50) Itching All systems: reviewed and no additional remarkable complaints except as stated Constitutional: Present: fatigue, weakness, weight loss Gastrointestinal: Present: abdominal pain, nausea, other (loss of appetite) Musculoskeletal: Present: muscle weakness Integumentary: Present: jaundice Psychiatric: Present: depression (since recent of mother and ) Oncology - Exam - Constitutional Vitals: Temp Pulse Resp BP Pulse Ox 97.6 F 68 18 100/62 99 11/26/16 15:33 11/26/16 15:33 11/26/16 15:33 11/26/16 15:33 11/26/16 15:33 General appearance: cooperative, thin - Head Head exam: Present: normal inspection - ENT ENT exam: Present: mucous membranes moist - Respiratory Respiratory exam: Present: CTAB - Cardiovascular Cardiovascular exam: Present: RRR - GI/Abdominal GI/Abdominal exam: Present: distended, firm - Extremities Exam Extremities exam: Present: pedal edema (Nonpitting edema in bilateral lower extremities up to the level) - Neurological Exam Neurological exam: Present: alert, oriented X3 - Psychiatric Psychiatric exam: Present: depressed, flat affect Oncology - Results - Labs Labs: Laboratory Results - last 48 hr 11/25/16 11/25/16 11/25/16 20:41 20:41 20:41 WBC 11.5 H RBC 3.56 L Hgb 10.8 L Hct 30.5 L MCV 85.7 MCH 30.3 MCHC 35.4 RDW 16.8 H Plt Count 370 MPV 9.7 Immature Gran % 0.8 Seg Neutrophils % 78.3 Lymphocytes % 12.7 Monocytes % 7.9 Eosinophils % 0.2 Basophils % 0.1 Neutrophils # 9.0 H Lymphocytes # 1.5 Monocytes # 0.9 Eosinophils # 0.0 Basophils # 0.0 Platelet Estimate Normal PT INR APTT Sodium 126 L Potassium 2.6 L Chloride 83 L Carbon Dioxide 24 BUN 37 H Creatinine 1.59 H Est GFR ( Amer) 39 L Est GFR (Non-Af Amer) 33 L BUN/Creatinine Ratio 23 Glucose 77 POC Glucose Calculated Osmolality 269 L Calcium 8.1 L Magnesium Total Bilirubin 20.1 H Direct Bilirubin 14.6 H Indirect Bilirubin 5.5 H AST 169 H ALT 109 H Alkaline Phosphatase 892 H Troponin I 0.01 B-Natriuretic Peptide Serum Total Protein 6.4 Albumin 2.5 L Globulin 3.9 H Albumin/Globulin Ratio 0.6 L 11/25/16 11/25/16 11/26/16 20:41 22:59 06:14 WBC 9.3 RBC 3.09 L Hgb 9.6 L Hct 26.3 L MCV 85.1 MCH 31.1 MCHC 36.5 H RDW 17.0 H Plt Count 298 MPV 10.1 Immature Gran % 0.5 Seg Neutrophils % 80.6 Lymphocytes % 10.1 Monocytes % 8.3 Eosinophils % 0.4 Basophils % 0.1 Neutrophils # 7.5 Lymphocytes # 0.9 Monocytes # 0.8 Eosinophils # 0.0 Basophils # 0.0 Platelet Estimate PT 14.9 H INR 1.4 APTT Sodium Potassium Chloride Carbon Dioxide BUN Creatinine Est GFR ( Amer) Est GFR (Non-Af Amer) BUN/Creatinine Ratio Glucose POC Glucose Calculated Osmolality Calcium Magnesium Total Bilirubin Direct Bilirubin Indirect Bilirubin AST ALT Alkaline Phosphatase Troponin I B-Natriuretic Peptide 29 Serum Total Protein Albumin Globulin Albumin/Globulin Ratio 11/26/16 11/26/16 11/26/16 06:14 06:14 07:21 WBC RBC Hgb Hct MCV MCH MCHC RDW Plt Count MPV Immature Gran % Seg Neutrophils % Lymphocytes % Monocytes % Eosinophils % Basophils % Neutrophils # Lymphocytes # Monocytes # Eosinophils # Basophils # Platelet Estimate PT 14.8 H INR 1.4 APTT 22.1 L Sodium 127 L Potassium 2.0 L* Chloride 87 L Carbon Dioxide 25 BUN 34 H Creatinine 1.27 H Est GFR ( Amer) 51 L Est GFR (Non-Af Amer) 42 L BUN/Creatinine Ratio 27 H Glucose 79 POC Glucose 82 Calculated Osmolality 271 L Calcium 7.3 L Magnesium 0.9 L Total Bilirubin 17.1 H Direct Bilirubin Indirect Bilirubin AST 143 H ALT 91 H Alkaline Phosphatase 738 H Troponin I B-Natriuretic Peptide Serum Total Protein 5.4 L Albumin 2.0 L Globulin 3.4 Albumin/Globulin Ratio 0.6 L 11/26/16 15:37 WBC RBC Hgb Hct MCV MCH MCHC RDW Plt Count MPV Immature Gran % Seg Neutrophils % Lymphocytes % Monocytes % Eosinophils % Basophils % Neutrophils # Lymphocytes # Monocytes # Eosinophils # Basophils # Platelet Estimate PT INR APTT Sodium Potassium Chloride Carbon Dioxide BUN Creatinine Est GFR ( Amer) Est GFR (Non-Af Amer) BUN/Creatinine Ratio Glucose POC Glucose 153 H Calculated Osmolality Calcium Magnesium Total Bilirubin Direct Bilirubin Indirect Bilirubin AST ALT Alkaline Phosphatase Troponin I B-Natriuretic Peptide Serum Total Protein Albumin Globulin Albumin/Globulin Ratio Consult Discharge Plan - Plan Referrals: Flor Hudson MD [Primary Care Provider] - 12/03/16 1:45 pm () <Osorio Ward - Last Filed: 11/27/16 08:30> - Data of Consult Requesting Physician: Arturo Mcgraw Primary Care Provider: Flor Hudson - Consult Narrative History of present illness: Ms. Cornelius is a 66 year old female Oncology - Exam - Constitutional Vitals: Temp Pulse Resp BP Pulse Ox 98.2 F 78 16 80/52 94 L 11/27/16 07:17 11/27/16 07:17 11/27/16 07:17 11/27/16 07:17 11/27/16 07:17 Oncology - Results - Labs Labs: BMP 02/28/17 03/01/17 23:17 06:25 Sodium 130 L Potassium 2.4 L* 3.9 D Chloride 94 L Carbon Dioxide 26 BUN 22 H D Creatinine 0.79 Glucose 75 Calcium 7.6 L Liver Function 11/27/16 Range/Units 06:25 Total Bilirubin 17.1 H (0.2-1.2) mg/dL AST 126 H (5-34) Units/L ALT 88 H (0-55) Units/L Alkaline Phosphatase 766 H (38-126) Units/L Albumin 1.9 L (3.5-5.0) g/dL - Attending Attestation I saw and personally examined Mr. Cornelius at her bedside today and reviewed the chart for details of ongoing care by hospital team. I verified/agree with the history and physical exam findings documented by Shayla Srinivasan DETONATOR MAKER above. To summarize, she is understandably pleasant 66-year-old woman currently hospitalized with suspicion of metastatic cancer from an unknown primary site in a process that symptoms started last August when she image and hair do not that showed innumerable pulmonary and hepatic nodules suspicious for metastatic disease. She was subsequently evaluated at [facility] and had elevated tumor markers and markedly abnormal LFTs. Pancreatic tumor marker CA-19-9 was also significantly elevated (164,000). Unfortunately, she'll not be able to obtain biopsy is recommended for tissue confirmation of malignancy as she has also been treated for skin cancer in the recent past. She is current hospitalized for progressive failure to thrive, worsening jaundice and abdominal discomfort. Her abdomen CT 11/25/16 showed massive hepatomegaly with diffuse liver lesions. She has also lost a significant amount of weight over the last several months. She has also had a number of personal tragedies entering recent unexpected passing of her about 3 weeks ago due to competitions from [employer] at that last July. She's also recently lost her mother. She had a biopsy of her liver lesion yesterday and pathology is pending. Her current active problems include markedly elevated bilirubin with picture suggesting hepatocellular injury for metastatic disease as opposed to cholestasis. Severe at slight abnormalities including severe hypokalemia being managed by the hospital team and make an still slow improvement. Cachexia likely due to underlying malignancy. Mild anemia possibly related to chronic information for malignancy and that warrant intervention presently. I'm not sure about social support system and she lives independently home. She has 2 adult sons currently lives close by and check on her on a daily basis patient. They are not involved in her medical decision making and she makes her own health care decisions. She does not feel like she need extra help at home at this time Exam is otherwise unremarkable besides as noted above. I personally reviewed and interpreted patient's most recent imaging studies dated 11/25/16. I discussed the findings with the patient today. Impression: Suspected metastatic cancer from an unknown primary site I reviewed in detail with the patient today diagnostic considerations were current presentation and the bases for consideration of malignancy. Certainly agree that finding of diffuse liver lesions hepatomegaly elevated tumor markers is compatible with malignancy. On otherwise. We need to determine primary source of her malignancy for appropriate management recommendations on prognostication. Elevated CEA and CA-19-9 was concern about GI primary source. She had a colonoscopy and colorectal primary for consideration. Other consideration with pancreas primary based on elevated CA-19-9. I am hoping we can make a definitive determination based on liver biopsy that recommended well with the results prior to any further recommendation. For her cancer associated symptoms including cachexia, pain, jaundice etc., appreciated ongoing management by hospital team and palliative care services. We 'll follow along. For her anemia, this is likely related to underlying malignancy but we will send complete anemia workup to look for the current reading factors adjust hematinic deficiencies etc. No acute intervention needed for current counts. We will follow the patient alongside you while workup is ongoing and will be on hand to unsigned of oncologic questions that may arise while she is in-house. Thank you for involving us in her care.
--- NOTE | 2016-11-26 16:37 | Electrocardiograph Report ---
[place] [id number] Test Date: 2016-11-25 Pat Name: Sara Cornelius Department: 105 Room: 2A22 Gender: Field Observer: : 1950 Requested By: Alessio Lazo Order Number: [id number] Reading MD: Skinny Velarde Measurements Intervals Gill Rate: 63 P: 81 MT: 131 QRS: 72 QRSD: 81 T: 28 QT: 405 QTc: 412 Interpretive Statements SINUS RHYTHM LEFT ATRIAL ENLARGEMENT NONSPECIFIC ST \T\ T-WAVE ABNORMALITY Electronically Signed On 11-26-2016 16:35:14 EST by Skinny Velarde
[2016-11-26] MEDS: *HR* Morphine Sulfate SR (12 HR) 15 MG TABLET.ER PO SCH (17:14)
[2016-11-26] MEDS: *HR* Morphine Immed Rel 30 MG TABLET PO PRN (20:13)
[2016-11-26] MEDS: Mirtazapine 15 MG TABLET PO SCH (20:14)
[2016-11-26] MEDS: traMADol 50 MG TABLET PO PRN (22:38)
[2016-11-26 23:31] LABS: Immature Reticulocyte % 5.1 % (11.0-38.0); Retculocyte # 0.07 M/mcL (0.05-0.10)
[2016-11-26 23:44] LABS: Magnesium 1.7 mg/dL (1.6-2.6)
[2016-11-26 23:51] LABS: Potassium 2.4 mEq/L (3.5-4.5)
[2016-11-27 00:25] LABS: Folate 8.7 ng/mL (7.0-31.4)
[2016-11-27 00:29] LABS: Vitamin B12 > 2000 pg/mL (213-816)
[2016-11-27] MEDS ORDERED: Potassium Chloride 40 MEQ, Lidocaine 1% 2 ML in D5% in Water 500 ML IVPB STA ×2 (00:33→00:36)
[2016-11-27] MEDS ORDERED: Potassium Chloride Elixir 20 MEQ/15 ML UDC PO STA (00:36)
[2016-11-27 00:43] LABS: Carcinoembryonic Antigen 1906.4 ng/mL (0-5.0)
[2016-11-27 02:10] LABS: Thyroid Stimulating Hormone 0.435 mcIU/mL (0.350-4.840)
[2016-11-27] MEDS: *HR* Morphine Sulfate SR (12 HR) 15 MG TABLET.ER PO SCH ×2 (06:18→18:06)
[2016-11-27] MEDS: *HR* Heparin 5,000 UNIT/ML VIAL SQ SCH ×2 (06:21→20:01)
[2016-11-27 07:24] LABS: Alanine Aminotransferase 88 Units/L (0-55); Albumin/Globulin Ratio 0.6 (1.1-2.2); Alkaline Phosphatase 766 Units/L (38-126); Aspartate Amino Transferase 126 Units/L (5-34); BUN/Creatinine Ratio 28 (6-26); Bilirubin,Total 17.1 mg/dL (0.2-1.2); Calcium 7.6 mg/dL (8.6-10.8); Carbon Dioxide 26 mEq/L (19-29); Chloride 94 mEq/L (98-109); Globulin 3.4 g/dL (2.4-3.5); Glucose 75 mg/dL (70-99); Magnesium 1.5 mg/dL (1.6-2.6); Osmolality,Calculated 272 (280-300); Sodium 130 mEq/L (136-145); Total Protein 5.3 g/dL (6.0-8.3); eGFR For African Americans > 60 (> 60); eGFR For Non-African Americans > 60 (> 60)
[2016-11-27 07:37] LABS: Blood Urea Nitrogen 22 mg/dL (7-20); Potassium 3.9 mEq/L (3.5-4.5)
[2016-11-27 07:38] LABS: Albumin 1.9 g/dL (3.5-5.0)
--- NOTE | 2016-11-27 10:37 | Internal Med Progress Note ---
<Barrington Bob - Last Filed: 11/27/16 10:33> Date of Encounter: 11/27/16 Time of Encounter: 10:34 - Assessment and plan (1) Metastatic cancer Current Visit: Yes Status: Acute Assessment and plan: CT Abdomen/pelvis shows extensive metastasis to lungs, liver, and gallbladder. Primary is unknown. Patient had previous CT in August 2016 and was scheduled to follow up with [facility] for biopsy which were delayed due to patient's and [id number] passing away. [facility] evaluation showed [id number] elevated at [id number]. History patient underwent CT-guided biopsy. Pathology pending. Oncology was consultated. Appreciate input. We will need to determine primary source for recommendations can be made for management. (2) Hyperbilirubinemia Current Visit: Yes Status: Acute Assessment and plan: Total adilson 20.1 on admission with direct being 14.6. This morning bilirubin is 17, stable from yesterday. Most likely obstruction from metastatic cancer. GI consulted for further evaluation. (3) Swelling of lower extremity Current Visit: Yes Status: Acute Assessment and plan: His bilateral pitting edema. Stable from yesterdsay. May be 2nd to hypoalbumenemia. Also concerning for DVT. B/L LE duplex ordered. Awaiting echocardiogram. (4) Severe protein-calorie malnutrition Current Visit: Yes Status: Acute Assessment and plan: 2nd to malignancy. Dietitian consulted for further evaluation and recommendations. Continue caridac diet with ensure plus TID. (5) YU (acute kidney injury) Current Visit: Yes Status: Acute Assessment and plan: Resolved. Scr is now .79. Will continue to monitor. Most likely 2nd to dehydration. (6) Cancer associated pain Current Visit: Yes Status: Acute Assessment and plan: Patient has been started on MS contin and Morphine for breakthrough pain. Continue tramadol. Palliative on board. Appreciate input. (7) Goals of care, counseling/discussion Current Visit: Yes Status: Acute Assessment and plan: Patient has been depressed as her and mother in the past two months. As of now patient states this is alot to take in. She does not have advance directives in place. Full code. Palliative on board.Appreciate input. (8) Hypokalemia Current Visit: Yes Status: Acute Assessment and plan: Resolved. Patient came in with potassium on 2.0. This was repalced with both oral and IV potassium. Currently Potassium is 3.9. Will continue to monitor. (9) Hyponatremia Current Visit: Yes Status: Acute Assessment and plan: Stable. 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 Monitor by repeat BMP. - Subjective Interval history: Patient had no acute events overnight. She states that her pain is very well controlled today. - Constitutional Vitals: Temp Pulse Resp BP Pulse Ox 98.2 F 78 16 80/52 94 L 11/27/16 07:17 11/27/16 07:17 11/27/16 07:17 11/27/16 07:17 11/27/16 07:17 General appearance: Present: cachectic, cooperative, A&O X 3, pleasant, underweight - Respiratory Respiratory exam: Present: CTAB. Absent: accessory muscle use, rales, rhonchi, wheezes - Cardiovascular Cardiovascular exam: Present: RRR, +S1, +S2. Absent: diastolic murmur, gallop, rubs, systolic murmur - GI/Abdominal GI/Abdominal exam: Present: hepatomegaly, mass, normal bowel sounds, tenderness (Diffuse) - Extremities Exam Extremities exam: Present: pedal edema (Improving), warm, radial pulses palpable and symetrical. Absent: calf tenderness, cyanotic Internal Medicine: Result - Labs CBC & Chem 7: 11/26/16 06:14 11/27/16 06:25 Labs: BMP 11/26/16 11/27/16 23:17 06:25 Sodium 130 L Potassium 2.4 L* 3.9 D Chloride 94 L Carbon Dioxide 26 BUN 22 H D Creatinine 0.79 Glucose 75 Calcium 7.6 L Liver Function 11/27/16 Range/Units 06:25 Total Bilirubin 17.1 H (0.2-1.2) mg/dL AST 126 H (5-34) Units/L ALT 88 H (0-55) Units/L Alkaline Phosphatase 766 H (38-126) Units/L Albumin 1.9 L (3.5-5.0) g/dL - ABG Interpretation ABG results: PT/INR, D-dimer PT 14.8 Seconds (9.4-12.1) H 11/26/16 06:14 Consult Discharge Plan - Plan Referrals: Flor Hudson MD [Primary Care Provider] - 12/03/16 1:45 pm () <Arturo Mcgraw H - Last Filed: 11/27/16 11:55> - Constitutional Vitals: Temp Pulse Resp BP Pulse Ox 97.6 F 74 16 87/60 97 11/27/16 10:58 11/27/16 10:58 11/27/16 10:58 11/27/16 10:58 11/27/16 10:58 Internal Medicine: Result - Labs CBC & Chem 7: 11/26/16 06:14 11/27/16 06:25 Labs: BMP 11/26/16 11/27/16 23:17 06:25 Sodium 130 L Potassium 2.4 L* 3.9 D Chloride 94 L Carbon Dioxide 26 BUN 22 H D Creatinine 0.79 Glucose 75 Calcium 7.6 L Liver Function 11/27/16 Range/Units 06:25 Total Bilirubin 17.1 H (0.2-1.2) mg/dL AST 126 H (5-34) Units/L ALT 88 H (0-55) Units/L Alkaline Phosphatase 766 H (38-126) Units/L Albumin 1.9 L (3.5-5.0) g/dL - ABG Interpretation ABG results: PT/INR, D-dimer PT 14.8 Seconds (9.4-12.1) H 11/26/16 06:14 - Attending Attestation wants to be a DNR cc Arrest DNI biopsy pending. Venous doppler negative for DVT on lower extremities I examined this patient and my medical decision-making was reviewed with the CHAINSTITCH SEWING MACHINE OPERATOR/PA/Advanced Practice Nurse/Resident Physician. I agree with the documented findings, disposition and treatment plan as described except to the extent set forth below.
[2016-11-27] MEDS: Pantoprazole 40 MG VIAL IVP SCH ×2 (11:05→13:40)
--- NOTE | 2016-11-27 11:41 | Gastroenterology Consult Note ---
<ElyBereket rodriguez Tania - Last Filed: 11/27/16 11:39> Date of Encounter: 11/27/16 Time of Encounter: 11:00 - Assessment and plan (1) Obstructive jaundice due to cancer Current Visit: Yes Status: Acute Assessment and plan: Plan for ERCP tomorrow. Keep patient NPO at midnight. Continue to monitor CMP. (2) Metastatic cancer Current Visit: Yes Status: Acute Assessment and plan: Liver biopsy completed, pathology pending. Hem/Onc following. (3) Hypokalemia Current Visit: Yes Status: Acute Assessment and plan: K 2.4 yesterday, today 3.9. Keep potassium greater than 3.5 for ERCP tomorrow. (4) Hyperbilirubinemia Current Visit: Yes Status: Acute Assessment and plan: Secondary to metastatic cancer. Plan for ERCP tomorrow. Bili has improved from admission. - Time Spent With Patient Total time spent is greater than 50% in coordination of care (as documented) at patient's floor/unit and/or counseling patient: GI History of Present Illness - Data of Consult Patient: new to practice Consult date: 11/27/16 Requesting Physician: Arturo Mcgraw - Consult Narrative Reason for consult: Objtructive jaundice History of present illness: Ms. Cornelius is a 66 year old female with PMHx of DM and undiagnosed primary cancer. She presented to the ED with c/o fatigue, weakness, unintentional weight loss, jaundice, and metastatic cancer of unknow primary source. Her PCP recommended she present to the ED and she came only after symptoms progressed. She was scheduled to have biopsies at [facility], but missed those appointments due to deaths in the family, 2 weeks ago and mother 2-3 weeks before her . CT A/P shows significant progressive metastatic disease involving liver and mild progression of metastatic disease involving lung bases. Liver biopsy was completed yesterday and pathology is pending. On admission TB 20.1, DD 14.6, AST 169, ALT 109, alkaline phosphatase 892. CEA 1906.4. Procedures: None NSAIDs: None Anticoagulation: None Past Med Surg Social Fam HX - Past Medical History Medical history: cancer (undiagnosed primary), diabetes, hypertension, other ( squamous cell cancer of skin (per [facility])) Psychiatric history: depression - Past Surgical History Surgical History: no surgical history, herniorrhaphy, other (tubaligation, bladder surgery) - Social History Smoking Status: Never smoker Smokeless Tobacco Status: No Alcohol use: none Drug use: none - Family History Mother Living Status: Hx Family Cancer: Yes Father History Unknown: Yes Living Status: - Gastrointestinal Gastrointestinal: Present: as per HPI - Constitutional Constitutional: as per HPI - EENT Eyes: as per HPI Ears: Present: as per HPI Nose, mouth and throat: Present: as per HPI - Cardiovascular Cardiovascular ROS: Present: as per HPI - Respiratory Respiratory IM: Present: as per HPI - Genitourinary Genitourinary: Absent: change in color, Urinary frequency - Neurological ROS Neurological GI: Present: as per HPI - Hematologic/Lymphatic Hematologic/Lymphatic pediatric: Present: as per HPI - Musculoskeletal Musculoskeletal ROS GI: Present: as per HPI - Integumentary Integumentary GI: Present: as per HPI - Psychiatric ROS Psychiatric GI: Present: as per HPI - Endocrine Endocrine IM: Present: as per HPI - Constitutional Vitals: Temp Pulse Resp BP Pulse Ox 97.6 F 74 16 87/60 97 11/27/16 10:58 11/27/16 10:58 11/27/16 10:58 11/27/16 10:58 11/27/16 10:58 General appearance: Present: cooperative, A&O X 3, no acute distress, answers questions appropriately - Head Head exam: Present: atraumatic, normocephalic - Eye Eye exam: Present: scleral icterus - ENT ENT exam: Present: mucous membranes dry - Neck Neck exam general surgery: Present: normal inspection, trachea midline - Respiratory Respiratory exam: Present: CTAB. Absent: rales, rhonchi - Cardiovascular Cardiovascular exam: Present: RRR, +S1, +S2 - GI/Abdominal GI/Abdominal exam: Present: firm, guarding, hepatomegaly, soft, tenderness ( generalized), no peritoneal signs. Absent: distended - Rectal Rectal exam: Present: deferred - Extremities Exam Extremities exam: Present: pedal edema, warm - Neurological Exam Neurological exam: Present: no focal deficits - Psychiatric Psychiatric exam: Present: normal affect, normal mood - Skin Skin exam: Present: dry, intact, warm. Absent: normal color (Jaundice) Results - Labs CBC & Chem 7: 11/26/16 06:14 11/27/16 06:25 Labs: Last Result Calcium 7.6 mg/dL (8.6-10.8) L 11/27/16 06:25 Iron 50 mcg/dL (50-170) 11/26/16 23:17 % Saturation 26 % (15-50) 11/26/16 23:17 Transferrin 140 mg/dL (180-382) L 11/26/16 23:17 Ferritin 2691 ng/ml (5-204) H 11/26/16 23:17 Troponin I 0.01 ng/mL (0-0.03) 11/25/16 20:41 Vitamin B12 > 2000 pg/mL (213-816) H 11/26/16 23:17 Folate 8.7 ng/mL (7.0-31.4) 11/26/16 23:17 Entire Visit Hgb 9.6 g/dL (11.5-15.4) L 11/26/16 06:14 Hct 26.3 % (35.3-44.9) L 11/26/16 06:14 PT 14.8 Seconds (9.4-12.1) H 11/26/16 06:14 Ferritin 2691 ng/ml (5-204) H 11/26/16 23:17 Total Bilirubin 17.1 mg/dL (0.2-1.2) H 11/27/16 06:25 AST 126 Units/L (5-34) H 11/27/16 06:25 ALT 88 Units/L (0-55) H 11/27/16 06:25 Carcinoembryonic Ag 1906.4 ng/mL (0-5.0) H 11/26/16 23:17 Folate 8.7 ng/mL (7.0-31.4) 11/26/16 23:17 - ABG ABG results: PT/INR, D-dimer PT 14.8 Seconds (9.4-12.1) H 11/26/16 06:14 Consult Discharge Plan - Plan Referrals: Flor Hudson MD [Primary Care Provider] - 12/03/16 1:45 pm () <Nette Pepe - Last Filed: 11/27/16 20:57> Time of Encounter: 17:30 - Time Spent With Patient Total time spent is greater than 50% in coordination of care (as documented) at patient's floor/unit and/or counseling patient: GI History of Present Illness - Data of Consult Requesting Physician: Arturo Mcgraw - Consult Narrative History of present illness: Ms. Cornelius is a 66 year old female - Constitutional Vitals: Temp Pulse Resp BP Pulse Ox 97.6 F 74 16 87/60 97 11/27/16 10:58 11/27/16 10:58 11/27/16 10:58 11/27/16 10:58 11/27/16 10:58 Results - Labs CBC & Chem 7: 11/26/16 06:14 11/27/16 06:25 Labs: Last Result Calcium 7.6 mg/dL (8.6-10.8) L 11/27/16 06:25 Iron 50 mcg/dL (50-170) 11/26/16 23:17 % Saturation 26 % (15-50) 11/26/16 23:17 Transferrin 140 mg/dL (180-382) L 11/26/16 23:17 Ferritin 2691 ng/ml (5-204) H 11/26/16 23:17 Troponin I 0.01 ng/mL (0-0.03) 11/25/16 20:41 Vitamin B12 > 2000 pg/mL (213-816) H 11/26/16 23:17 Folate 8.7 ng/mL (7.0-31.4) 11/26/16 23:17 Entire Visit Hgb 9.6 g/dL (11.5-15.4) L 11/26/16 06:14 Hct 26.3 % (35.3-44.9) L 11/26/16 06:14 PT 14.8 Seconds (9.4-12.1) H 11/26/16 06:14 Ferritin 2691 ng/ml (5-204) H 11/26/16 23:17 Total Bilirubin 17.1 mg/dL (0.2-1.2) H 11/27/16 06:25 AST 126 Units/L (5-34) H 11/27/16 06:25 ALT 88 Units/L (0-55) H 11/27/16 06:25 Carcinoembryonic Ag 1906.4 ng/mL (0-5.0) H 11/26/16 23:17 Folate 8.7 ng/mL (7.0-31.4) 11/26/16 23:17 - ABG ABG results: PT/INR, D-dimer PT 14.8 Seconds (9.4-12.1) H 11/26/16 06:14 - Attending Attestation I examined this patient and my medical decision-making was reviewed with the SECRETARY RECEPTIONIST/PA/Advanced Practice Nurse/Resident Physician. I agree with the documented findings, disposition and treatment plan as described except to the extent set forth below. CT/MRI reviewed with radiology. There is concern for obstruction at level of commom hepatic with intrahepatic dilation. ERCP with stenting in am
[2016-11-27] MEDS ORDERED: Magnesium Sulfate 2 GM in D5% in Water 100 ML IVPB ONE (11:46)
--- NOTE | 2016-11-27 13:01 | ECHO - Doppler Report ---
Echocardiogram Name: Sara Cornelius Date of Study: 11/27/2016 Date: 1950 Ht: 64.0 in Medical Record#: [id number] Age: 66 Wt: 94.0 lb Gender: Female BSA: 1.42 Order #: [id number] Location: [facility] Room #: 2A22 Reading Physician: Bereket Dubose MD, [facility] Electromechanical Technologist: Jean Feldman RN Ordering Physician: Barrington Bob DO Primary Physician: Flor Hudson MD Indications: Edema Impressions: Normal left ventricular systolic function, LVEF 65%. Mild left ventricular diastolic dysfunction. Normal right ventricular size and function. No significant valvular dysfunction. Unable to estimate RVSP due to lack of TR jet. Left Ventricular Wall Motion: Rest Echo Findings All wall segments showed normal motion. Findings: Study Quality * Suboptimal echo windows. ECG Findings * Normal sinus rhythm. Left Ventricle * Normal left ventricular systolic function, LVEF 65%. * Normal LV chamber size and wall thickness. * Mild left ventricular diastolic dysfunction. Right Ventricle * Normal right ventricular size and function. Left Atrium * Normal left atrial size. Right Atrium * Normal right atrial size. Aorta * Normally sized aortic root. Pericardium * There is no pericardial effusion present. IVC * The IVC is not well evaluated. Aortic Valve * Aortic valve not well visualized. Appears mildly sclerotic. * No aortic stenosis. * No aortic regurgitation. Mitral Valve * Normal mitral valve structure. * No mitral stenosis. * Trace mitral regurgitation. Tricuspid Valve * Normal tricuspid valve structure. * No tricuspid stenosis. * Trace tricuspid regurgitation. * Unable to estimate RVSP due to lack of TR jet. Pulmonic Valve * Pulmonic valve not well visualized. * No pulmonic stenosis. * No pulmonic regurgitation. History Hypertension Diabetes Hypercholesteremia Family History of CAD 04/27/2013 a Previous Echo was performed. Measurements: BP: 80/ 52 2D Normal Values RVIDd: 2.30 cm IVSd: .70 cm 0.6 - 1.0 cm LVIDd: 3.30 cm 3.7 - 5.6 cm LVPWd: .70 cm 0.6 - 1.1 cm LVIDs: 2.20 cm 1.5 - 3.6 cm AO: 2.40 cm < 4.0 cm %FS: 33.30 cm >25 % LA volume: 27 Mitral Valve Peak E:.54 m/sec Peak A:.71 m/sec E/A Ratio:0.8 Updated by Bereket Dubose MD, [facility] on 11/27/2016 12:56:11 PM electronically signed on 11/27/2016 12:56:37 PM with status of Final Wall Motion Ruiz: 1=Normal, 2=Hypokinesis, 3=Akinesis, 4=Dyskinesis, 5=Aneurysmal, 6=Hyperkinetic, X=Not Visualized (Blank)=Missing
[2016-11-27] MEDS: *HR* Morphine Immed Rel 30 MG TABLET PO PRN (13:36)
--- NOTE | 2016-11-27 15:41 | Palliative Progress Note ---
Date of Encounter: 11/27/16 Time of Encounter: 15:40 - Assessment and plan (1) Cancer associated pain Current Visit: Yes Status: Acute Assessment and plan: Continue current regimen of MS Contin/IR Morphine for breakthrough. She also desires to continue Tramadol at hs. Has utilized IR Morphine x2 and Tramadol z1 last 24 hours. Monitor (2) Nausea Current Visit: Yes Status: Acute Assessment and plan: Continue Ondansetron PRN - has utilized x1 last 24 hours. Nausea better today (3) Diarrhea Current Visit: Yes Status: Acute Assessment and plan: Lomotil PRN. She reports no loose stools since yesterday Qualifiers: Diarrhea type: unspecified type Qualified Code(s): R19.7 - Diarrhea, unspecified (4) Depression Current Visit: Yes Status: Acute Assessment and plan: Continue Remeron and monitor Qualifiers: Depression Type: unspecified Qualified Code(s): F32.9 - Major depressive disorder, single episode, unspecified (5) Goals of care, counseling/discussion Current Visit: Yes Status: Acute Assessment and plan: Transition to DNR/DNI today per Dr. Allan - thank you. Spent time with pt discussing possible decision she may need to make in future. She spent a great deal of time this afternoon wanting to discuss her mother and husbands deaths. Provided emotional support. For ERCP tomorrow. Will continue to follow. (6) Metastatic cancer Current Visit: Yes Status: Acute - Time Spent With Patient Total time spent is greater than 50% in coordination of care (as documented) at patient's floor/unit and/or counseling patient: 25 - 35 minutes - Subjective Interval history: Patient awake and alert. Frustrated with amount of visitors today and has not had any rest. States pain well controlled, nausea better and ate 50% of lunch. Diarrhea has ceased. Awaiting ERCP tomorrow. Sister at bedside visiting - Constitutional Vitals: Abnormal lab results RBC 3.09 M/mcL (3.82-4.97) L 11/26/16 06:14 Hgb 9.6 g/dL (11.5-15.4) L 11/26/16 06:14 Hct 26.3 % (35.3-44.9) L 11/26/16 06:14 MCHC 36.5 g/dL (31.6-35.5) H 11/26/16 06:14 RDW 17.0 % (11.5-14.5) H 11/26/16 06:14 Immature Retic Fraction 5.1 % (11.0-38.0) L 11/26/16 23:17 Retic Hgb Equivalent 39.3 pg (28.61-36.33) H 11/26/16 23:17 PT 14.8 Seconds (9.4-12.1) H 11/26/16 06:14 APTT 22.1 Seconds (26.0-36.0) L 11/26/16 06:14 Sodium 130 mEq/L (136-145) L 11/27/16 06:25 Chloride 94 mEq/L (98-109) L 11/27/16 06:25 BUN 22 mg/dL (7-20) H D 11/27/16 06:25 BUN/Creatinine Ratio 28 (6-26) H 11/27/16 06:25 POC Glucose 97 (58-89) H 11/27/16 10:54 Calculated Osmolality 272 (280-300) L 11/27/16 06:25 Calcium 7.6 mg/dL (8.6-10.8) L 11/27/16 06:25 Magnesium 1.5 mg/dL (1.6-2.6) L 11/27/16 06:25 Transferrin 140 mg/dL (180-382) L 11/26/16 23:17 Ferritin 2691 ng/ml (5-204) H 11/26/16 23:17 Total Bilirubin 17.1 mg/dL (0.2-1.2) H 11/27/16 06:25 Direct Bilirubin 14.6 mg/dL (0.0-0.5) H 11/25/16 20:41 Indirect Bilirubin 5.5 mg/dL (0.0-1.2) H 11/25/16 20:41 AST 126 Units/L (5-34) H 11/27/16 06:25 ALT 88 Units/L (0-55) H 11/27/16 06:25 Alkaline Phosphatase 766 Units/L (38-126) H 11/27/16 06:25 Lactate Dehydrogenase 1622 Units/L (159-327) H 11/26/16 23:17 Serum Total Protein 5.3 g/dL (6.0-8.3) L 11/27/16 06:25 Albumin 1.9 g/dL (3.5-5.0) L 11/27/16 06:25 Albumin/Globulin Ratio 0.6 (1.1-2.2) L 11/27/16 06:25 Carcinoembryonic Ag 1906.4 ng/mL (0-5.0) H 11/26/16 23:17 Vitamin B12 > 2000 pg/mL (213-816) H 11/26/16 23:17 General appearance: Present: no acute distress - Respiratory Respiratory exam: Present: CTAB - Cardiovascular Cardiovascular exam: Present: +S1, +S2 - GI/Abdominal GI/Abdominal exam: Present: normal bowel sounds Additional comments: Firmness to RUQ - Extremities Exam Additional comments: 2+ edema lower extremities - Neurological Exam Neurological exam: Present: alert, oriented X3, strengths equal and symetr throughout Additional comments: generalized weakness - Skin Skin exam: Present: dry, pallor, warm Palliative Quality Palliative Quality: Screen for Code Status: NA (discuss later), Screen for Goals of Care: NA (awaiting biopsy), Screen for Pain: Yes, If Pain Regimen Started, Initiate Bowel Regimen: NA (diarrhea), Screen for Nausea/Vomitting: Yes Code Status: 11/27/16 11:52 CODE [Resuscitation Status: Active] [RES] Routine Comment: Resuscitation Status: [id number] - Labs CBC & Chem 7: 11/26/16 06:14 11/27/16 06:25 Labs: Laboratory Results - last 24 hr 11/26/16 11/26/16 11/26/16 15:37 20:40 23:17 Reticulocyte # Percent Retic Immature Retic Fraction Retic Hgb Equivalent Sodium Potassium 2.4 L* Chloride Carbon Dioxide BUN Creatinine Est GFR ( Amer) Est GFR (Non-Af Amer) BUN/Creatinine Ratio Glucose POC Glucose 153 H 100 H Calculated Osmolality Calcium Magnesium 1.7 Iron % Saturation Transferrin Ferritin Total Bilirubin AST ALT Alkaline Phosphatase Lactate Dehydrogenase Serum Total Protein Albumin Globulin Albumin/Globulin Ratio Carcinoembryonic Ag Vitamin B12 Folate TSH Free T4 11/26/16 11/26/16 11/26/16 23:17 23:17 23:17 Reticulocyte # 0.07 Percent Retic 2.0 Immature Retic Fraction 5.1 L Retic Hgb Equivalent 39.3 H Sodium Potassium Chloride Carbon Dioxide BUN Creatinine Est GFR ( Amer) Est GFR (Non-Af Amer) BUN/Creatinine Ratio Glucose POC Glucose Calculated Osmolality Calcium Magnesium Iron 50 % Saturation 26 Transferrin 140 L Ferritin 2691 H Total Bilirubin AST ALT Alkaline Phosphatase Lactate Dehydrogenase 1622 H Serum Total Protein Albumin Globulin Albumin/Globulin Ratio Carcinoembryonic Ag 1906.4 H Vitamin B12 > 2000 H Folate 8.7 TSH 0.435 Free T4 0.93 11/27/16 11/27/16 11/27/16 06:25 07:52 10:54 Reticulocyte # Percent Retic Immature Retic Fraction Retic Hgb Equivalent Sodium 130 L Potassium 3.9 D Chloride 94 L Carbon Dioxide 26 BUN 22 H D Creatinine 0.79 Est GFR ( Amer) > 60 Est GFR (Non-Af Amer) > 60 BUN/Creatinine Ratio 28 H Glucose 75 POC Glucose 71 97 H Calculated Osmolality 272 L Calcium 7.6 L Magnesium 1.5 L Iron % Saturation Transferrin Ferritin Total Bilirubin 17.1 H AST 126 H ALT 88 H Alkaline Phosphatase 766 H Lactate Dehydrogenase Serum Total Protein 5.3 L Albumin 1.9 L Globulin 3.4 Albumin/Globulin Ratio 0.6 L Carcinoembryonic Ag Vitamin B12 Folate TSH Free T4 - ABG Interpretation ABG results: PT/INR, D-dimer PT 14.8 Seconds (9.4-12.1) H 11/26/16 06:14 Consult Discharge Plan - Plan Referrals: Flor Hudson MD [Primary Care Provider] - 12/03/16 1:45 pm ()
[2016-11-27] MEDS: Mirtazapine 15 MG TABLET PO SCH (21:33)
[2016-11-27] MEDS: traMADol 50 MG TABLET PO PRN (23:23)
[2016-11-28 05:34] LABS: Hemoglobin 10.2 g/dL (11.5-15.4); Mean Corpuscular HGB Conc 35.2 g/dL (31.6-35.5); Mean Corpuscular Hemoglobin 30.6 pg (28.0-33.3); Mean Corpuscular Volume 87.1 fL (83.0-100.0); Mean Platelet Volume 10.2 fL (9.4-12.4); Platelet Count 303 K/mcL (140-400); Red Blood Count 3.33 M/mcL (3.82-4.97); Red Cell Distribution Width 17.9 % (11.5-14.5)
[2016-11-28] MEDS: *HR* Morphine Sulfate SR (12 HR) 15 MG TABLET.ER PO SCH ×2 (05:46→20:25)
[2016-11-28 07:10] LABS: Alanine Aminotransferase 81 Units/L (0-55); Albumin/Globulin Ratio 0.6 (1.1-2.2); Alkaline Phosphatase 706 Units/L (38-126); Aspartate Amino Transferase 112 Units/L (5-34); BUN/Creatinine Ratio 27 (6-26); Bilirubin,Indirect 4.5 mg/dL (0.0-1.2); Bilirubin,Total 17.1 mg/dL (0.2-1.2); Blood Urea Nitrogen 16 mg/dL (7-20); Calcium 7.5 mg/dL (8.6-10.8); Carbon Dioxide 23 mEq/L (19-29); Chloride 96 mEq/L (98-109); Globulin 3.2 g/dL (2.4-3.5); Glucose 64 mg/dL (70-99); Osmolality,Calculated 267 (280-300); Potassium 3.2 mEq/L (3.5-4.5); Sodium 129 mEq/L (136-145); Total Protein 5.1 g/dL (6.0-8.3); eGFR For African Americans > 60 (> 60); eGFR For Non-African Americans > 60 (> 60)
[2016-11-28 07:15] LABS: Albumin 1.9 g/dL (3.5-5.0); Bilirubin,Direct 12.6 mg/dL (0.0-0.5)
[2016-11-28] MEDS: *HR* Heparin 5,000 UNIT/ML VIAL SQ SCH (08:10)
[2016-11-28] MEDS: Pantoprazole 40 MG VIAL IVP SCH (08:10)
[2016-11-28] MEDS ORDERED: Potassium Chloride 20 MEQ, Lidocaine 1% 2 ML in D5% in Water 250 ML IVPB ONE (08:27)
[2016-11-28] MEDS ORDERED: Magnesium Sulfate 2 GM in D5% in Water 100 ML IVPB ONE (08:28)
[2016-11-28] MEDS ORDERED: WATER IVPB ONE (08:30)
[2016-11-28] MEDS ORDERED: POTASSIUM CHLORIDE IVPB ONE (08:30)
[2016-11-28] MEDS ORDERED: LIDOCAINE 1% IVPB ONE (08:30)
[2016-11-28] MEDS ORDERED: D5 IVPB ONE (08:30)
--- NOTE | 2016-11-28 08:41 | Internal Med Progress Note ---
<Barrington Bob - Last Filed: 11/28/16 08:39> Date of Encounter: 11/28/16 Time of Encounter: 08:39 - Assessment and plan (1) Metastatic cancer Current Visit: Yes Status: Acute Assessment and plan: CT Abdomen/pelvis shows extensive metastasis to lungs, liver, and gallbladder. Primary is unknown. Patient had previous CT in August 2016 and was scheduled to follow up with [facility] for biopsy which were delayed due to patient's and [id number] passing away. [facility] evaluation showed [id number] elevated at [id number]. Underwent CT-guided biopsy. Pathology pending. CEA 1905 Oncology was consultated. Appreciate input. We will need to determine primary source for recommendations can be made for management. (2) Hyperbilirubinemia Current Visit: Yes Status: Acute Assessment and plan: Most likely obstruction from metastatic cancer. bilirubin is 17, stable from yesterday. Undergo ERCP today. Will replace potassium this morning 40meq IV as GI would like level above 3.5. (3) Swelling of lower extremity Current Visit: Yes Status: Acute Assessment and plan: His bilateral pitting edema. Stable from yesterday. May be 2nd to hypoalbumenemia. DVT r/o as B/L LE duplex WNL. Echo LVEF 65% mild left ventricular diastolic dysfunction. Will continue to monitor. (4) Severe protein-calorie malnutrition Current Visit: Yes Status: Acute Assessment and plan: 2nd to malignancy. Dietitian consulted for further evaluation and recommendations. Continue caridac diet with ensure plus TID. (5) YU (acute kidney injury) Current Visit: Yes Status: Acute Assessment and plan: Resolved. Scr is now .59. Will continue to monitor. Most likely 2nd to dehydration. (6) Cancer associated pain Current Visit: Yes Status: Acute Assessment and plan: Patient has been started on MS contin and Morphine for breakthrough pain. Continue tramadol. Palliative on board. Appreciate input. (7) Goals of care, counseling/discussion Current Visit: Yes Status: Acute Assessment and plan: Patient has been depressed as her and mother in the past two months. As of now patient states this is alot to take in. Still need to discuss what is plan post discharge: hospice, palliative care? Also awaiting pathology report to guide discussion. Code status changed to [id number] DNI. (8) Hypokalemia Current Visit: Yes Status: Acute Assessment and plan: Replacing potassium of 3.2. Goal is >3.5. Repeat K+ levels in afternoon. (9) Hyponatremia Current Visit: Yes Status: Acute Assessment and plan: Stable. 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 Monitor by repeat BMP. (10) Anemia Current Visit: Yes Status: Acute Assessment and plan: most likely 2nd to malignancy. hgb stable Iron panel indicates anemia of chronic disease. B12, folate WNL hem/onc on board. appreciate input. Qualifiers: Anemia type: unspecified type Qualified Code(s): D64.9 - Anemia, unspecified - Subjective Interval history: Patient had no acute events overnight. She states that she still has pain but is better controlled than yesterday. COntinues to have nausea. States her appetitie has improved. Denies diarrhea. Patient is scheduled to undergo ERCP today. - Constitutional Vitals: Temp Pulse Resp BP Pulse Ox 97.6 F 77 18 101/67 96 11/28/16 07:45 11/28/16 07:45 11/28/16 07:45 11/28/16 07:45 11/28/16 08:19 General appearance: Present: cachectic, cooperative, A&O X 3, pleasant, underweight - Respiratory Respiratory exam: Present: CTAB. Absent: accessory muscle use, rales, rhonchi, wheezes - Cardiovascular Cardiovascular exam: Present: RRR, +S1, +S2. Absent: diastolic murmur, gallop, rubs, systolic murmur - GI/Abdominal GI/Abdominal exam: Present: firm, hepatomegaly, mass, normal bowel sounds, tenderness (diffuse) - Extremities Exam Extremities exam: Present: pedal edema, warm, radial pulses palpable and symetrical. Absent: calf tenderness, cyanotic - Psychiatric Psychiatric exam: Present: depressed, normal affect Internal Medicine: Result - Labs CBC & Chem 7: 11/28/16 05:00 11/28/16 05:45 Labs: Short CBC 11/28/16 Range/Units 05:00 WBC 8.8 (4.3-11.1) K/mcL Hgb 10.2 L (11.5-15.4) g/dL Hct 29.0 L (35.3-44.9) % Plt Count 303 (140-400) K/mcL BMP 11/28/16 05:45 Sodium 129 L Potassium 3.2 L Chloride 96 L Carbon Dioxide 23 BUN 16 Creatinine 0.59 Glucose 64 L Calcium 7.5 L Liver Function 11/28/16 Range/Units 05:45 Total Bilirubin 17.1 H (0.2-1.2) mg/dL Direct Bilirubin 12.6 H (0.0-0.5) mg/dL AST 112 H (5-34) Units/L ALT 81 H (0-55) Units/L Alkaline Phosphatase 706 H (38-126) Units/L Albumin 1.9 L (3.5-5.0) g/dL - ABG Interpretation ABG results: PT/INR, D-dimer PT 14.8 Seconds (9.4-12.1) H 11/26/16 06:14 Consult Discharge Plan - Plan Referrals: Flor Hudson MD [Primary Care Provider] - 12/03/16 1:45 pm () <Arturo Mcgraw H - Last Filed: 11/28/16 11:15> - Constitutional Vitals: Temp Pulse Resp BP Pulse Ox 97.6 F 77 18 101/67 96 11/28/16 07:45 11/28/16 07:45 11/28/16 07:45 11/28/16 07:45 11/28/16 08:19 Internal Medicine: Result - Labs CBC & Chem 7: 11/28/16 05:00 11/28/16 05:45 Labs: Short CBC 11/28/16 Range/Units 05:00 WBC 8.8 (4.3-11.1) K/mcL Hgb 10.2 L (11.5-15.4) g/dL Hct 29.0 L (35.3-44.9) % Plt Count 303 (140-400) K/mcL [facility] 11/28/16 05:45 Sodium 129 L Potassium 3.2 L Chloride 96 L Carbon Dioxide 23 BUN 16 Creatinine 0.59 Glucose 64 L Calcium 7.5 L Liver Function 11/28/16 Range/Units 05:45 Total Bilirubin 17.1 H (0.2-1.2) mg/dL Direct Bilirubin 12.6 H (0.0-0.5) mg/dL AST 112 H (5-34) Units/L ALT 81 H (0-55) Units/L Alkaline Phosphatase 706 H (38-126) Units/L Albumin 1.9 L (3.5-5.0) g/dL - ABG Interpretation ABG results: PT/INR, D-dimer PT 14.8 Seconds (9.4-12.1) H 11/26/16 06:14 - Attending Attestation ercp today I examined this patient and my medical decision-making was reviewed with the PURLER/PA/Advanced Practice Nurse/Resident Physician. I agree with the documented findings, disposition and treatment plan as described except to the extent set forth below.
--- NOTE | 2016-11-28 11:39 | Palliative Progress Note ---
Date of Encounter: 11/28/16 Time of Encounter: 11:30 - Assessment and plan (1) Cancer associated pain Current Visit: Yes Status: Acute Assessment and plan: Continue MS Contin/IR Morphine for pain and monitor. Continues Tramadol which she prefers to take at bedtime. (2) Nausea Current Visit: Yes Status: Acute Assessment and plan: Continue Ondansetron PRN (3) Diarrhea Current Visit: Yes Status: Acute Assessment and plan: Lomotil PRN, diarrhea has subsided. Qualifiers: Diarrhea type: unspecified type Qualified Code(s): R19.7 - Diarrhea, unspecified (4) Depression Current Visit: Yes Status: Acute Assessment and plan: Continue Remeron to assist with appetite, depression, and sleep. Qualifiers: Depression Type: unspecified Qualified Code(s): F32.9 - Major depressive disorder, single episode, unspecified (5) Goals of care, counseling/discussion Current Visit: Yes Status: Acute Assessment and plan: Still awaiting biopsy results and further recommendations and treatment plan from oncology. Patient is denying any needs upon discharge at this time. I discussed and encouraged Shoshana barbeau palliative to follow her and assist with symptom management along the trajectory of her illness, however, she is still refusing and states that she wants to manage things herself with children helping. Will continue to discuss. D/W clearing tub worker Darrick Rosales who will also discuss with her. (6) Metastatic cancer Current Visit: Yes Status: Acute - Time Spent With Patient Total time spent is greater than 50% in coordination of care (as documented) at patient's floor/unit and/or counseling patient: 25 - 35 minutes - Subjective Interval history: Patient awake and alert. 3 family members visiting at bedside. Denies any complaints at this time. Pain well managed with current medications. Feels appetite better - currently NPO however for ERCP at 1300. - Constitutional Vitals: Abnormal lab results RBC 3.33 M/mcL (3.82-4.97) L 11/28/16 05:00 Hgb 10.2 g/dL (11.5-15.4) L 11/28/16 05:00 Hct 29.0 % (35.3-44.9) L 11/28/16 05:00 RDW 17.9 % (11.5-14.5) H 11/28/16 05:00 Immature Retic Fraction 5.1 % (11.0-38.0) L 11/26/16 23:17 Retic Hgb Equivalent 39.3 pg (28.61-36.33) H 11/26/16 23:17 PT 14.8 Seconds (9.4-12.1) H 11/26/16 06:14 APTT 22.1 Seconds (26.0-36.0) L 11/26/16 06:14 Sodium 129 mEq/L (136-145) L 11/28/16 05:45 Potassium 3.2 mEq/L (3.5-4.5) L 11/28/16 05:45 Chloride 96 mEq/L (98-109) L 11/28/16 05:45 BUN/Creatinine Ratio 27 (6-26) H 11/28/16 05:45 Glucose 64 mg/dL (70-99) L 11/28/16 05:45 Calculated Osmolality 267 (280-300) L 11/28/16 05:45 Calcium 7.5 mg/dL (8.6-10.8) L 11/28/16 05:45 Magnesium 1.5 mg/dL (1.6-2.6) L 11/27/16 06:25 Transferrin 140 mg/dL (180-382) L 11/26/16 23:17 Ferritin 2691 ng/ml (5-204) H 11/26/16 23:17 Total Bilirubin 17.1 mg/dL (0.2-1.2) H 11/28/16 05:45 Direct Bilirubin 12.6 mg/dL (0.0-0.5) H 11/28/16 05:45 Indirect Bilirubin 4.5 mg/dL (0.0-1.2) H 11/28/16 05:45 AST 112 Units/L (5-34) H 11/28/16 05:45 ALT 81 Units/L (0-55) H 11/28/16 05:45 Alkaline Phosphatase 706 Units/L (38-126) H 11/28/16 05:45 Lactate Dehydrogenase 1622 Units/L (159-327) H 11/26/16 23:17 Serum Total Protein 5.1 g/dL (6.0-8.3) L 11/28/16 05:45 Albumin 1.9 g/dL (3.5-5.0) L 11/28/16 05:45 Albumin/Globulin Ratio 0.6 (1.1-2.2) L 11/28/16 05:45 Carcinoembryonic Ag 1906.4 ng/mL (0-5.0) H 11/26/16 23:17 Vitamin B12 > 2000 pg/mL (213-816) H 11/26/16 23:17 General appearance: Present: no acute distress - Respiratory Respiratory exam: Present: decreased breath sounds, CTAB - Cardiovascular Cardiovascular exam: Present: +S1, +S2 - GI/Abdominal GI/Abdominal exam: Present: tenderness Additional comments: Firmness to RUQ remains - Extremities Exam Additional comments: 2+ bilateral edema to lower extremities - Neurological Exam Neurological exam: Present: alert, oriented X3, strengths equal and symetr throughout - Skin Skin exam: Present: dry, pallor, warm Additional comments: Jaundiced Palliative Quality Palliative Quality: Screen for Code Status: NA (discuss later), Screen for Goals of Care: NA (awaiting biopsy), Screen for Pain: Yes, If Pain Regimen Started, Initiate Bowel Regimen: NA (diarrhea), Screen for Nausea/Vomitting: Yes Code Status: 11/27/16 11:52 CODE [Resuscitation Status: Active] [RES] Routine Comment: Resuscitation Status: [id number] - Labs CBC & Chem 7: 11/28/16 05:00 11/28/16 05:45 Labs: Laboratory Results - last 24 hr 11/27/16 11/27/16 11/28/16 16:55 22:03 05:00 WBC 8.8 RBC 3.33 L Hgb 10.2 L Hct 29.0 L MCV 87.1 MCH 30.6 MCHC 35.2 RDW 17.9 H Plt Count 303 MPV 10.2 Sodium Potassium Chloride Carbon Dioxide BUN Creatinine Est GFR ( Amer) Est GFR (Non-Af Amer) BUN/Creatinine Ratio Glucose POC Glucose 151 H 88 Calculated Osmolality Calcium Total Bilirubin Direct Bilirubin Indirect Bilirubin AST ALT Alkaline Phosphatase Serum Total Protein Albumin Globulin Albumin/Globulin Ratio Specimen Rejected 11/28/16 11/28/16 05:00 05:45 WBC RBC Hgb Hct MCV MCH MCHC RDW Plt Count MPV Sodium 129 L Potassium 3.2 L Chloride 96 L Carbon Dioxide 23 BUN 16 Creatinine 0.59 Est GFR ( Amer) > 60 Est GFR (Non-Af Amer) > 60 BUN/Creatinine Ratio 27 H Glucose 64 L POC Glucose Calculated Osmolality 267 L Calcium 7.5 L Total Bilirubin 17.1 H Direct Bilirubin 12.6 H Indirect Bilirubin 4.5 H AST 112 H ALT 81 H Alkaline Phosphatase 706 H Serum Total Protein 5.1 L Albumin 1.9 L Globulin 3.2 Albumin/Globulin Ratio 0.6 L Specimen Rejected Hemolyzed - ABG Interpretation ABG results: PT/INR, D-dimer PT 14.8 Seconds (9.4-12.1) H 11/26/16 06:14 Consult Discharge Plan - Plan Referrals: Flor uHdson MD [Primary Care Provider] - 12/03/16 1:45 pm ()
--- NOTE | 2016-11-28 13:54 | Anesthesia Evaluation PreOp ---
Date of Encounter: 11/28/16 Time of Encounter: 13:51 - Past History Planned Operation: ERCP Cardiac History: Other (normal TTE yesterday (nml EF, no valvular disease, mild LV diastolic dysfunction)) Pulmonary History: Denies Any Significant HX MILK INSPECTOR History: Denies Any Significant HX Other Medical History: Diabetes Type II (oral medications and insulin), Other ( metastatic cancer of unknown origin) Anesthesia History: Problems (nausea) Alcohol Use: none Drug use: none Medications and Allergies Dicyclomine [Dicyclomine] 20 mg PO Q8H PRN 11/26/16 [History] Furosemide [Lasix] 40 mg PO DAILY 11/26/16 [History] Insulin Glargine,Hum.rec.anlog [Lantus Solostar] 10 unit SQ HS 11/26/16 [History ] Metformin HCl [Metformin HCl ER] 500 mg PO BID 11/26/16 [History] Morphine Sulfate [Morphine Sulfate] 15 mg PO Q4H PRN 11/26/16 [History] Potassium Chloride [Potassium Chloride] 20 meq PO BID 11/26/16 [History] Sennosides/Docusate Sodium [Senna Plus] 1 each PO BID PRN 11/26/16 [History] Simvastatin [Zocor] 20 mg PO DAILY 11/26/16 [History] Spironolact/Hydrochlorothiazid [Aldactazide 25-25 Tablet] 1 each PO BID [History] Allergies ciprofloxacin [From Cipro] Allergy (Verified 11/25/16 19:50) Rash Sulfa (Sulfonamide Antibiotics) Allergy (Verified 11/25/16 19:50) Rash codeine Adverse Reaction (Verified 11/25/16 19:50) Itching - Meds/Allergy Pre-op Review Medications Reviewed: Yes Allergies Reviewed: Yes Beta Blockers on Current Med List: No Anesthesia Results - Labs 11/28/16 05:00 11/28/16 05:45 - Imaging EKG: report reviewed, image reviewed (SR; LAE) Anesthesia Exam Last Vital Signs Temp 98.5 F 11/28/16 13:45 Pulse 75 11/28/16 13:45 Resp 20 11/28/16 13:45 BP 102/67 11/28/16 13:45 Pulse Ox 100 11/28/16 13:45 Weight: 44 kg NPO (# of Hours): >> 8 hrs - HEENT Pupil (Motor): Pupils equal, EOMI Mallampati: III Teeth: Normal Oral Opening: Greater than 3 - MILK INSPECTOR LOC: Oriented - Cardiac Rhythm: Regular Murmur: None - Pulmonary Breath Sounds: bilateral Clear Respiratory Effort: Symmetrical Anesthesia Assess/Plan ASA Score: 4 Modified [place] Scale for Level of Consciousness: Cooperative, oriented, and tranquil Anesthetic Plan: General Monitoring Plan: Standard Monitors Recovery Plan: PACU
[2016-11-28] MEDS ORDERED: *HR* FentaNYL (PF) 100 MCG/2 ML VIAL ONE (13:55)
[2016-11-28] MEDS ORDERED: Indomethacin 50 MG SUPP.RECT RC ONE (14:20)
[2016-11-28] MEDS ORDERED: Lidocaine -MPF 2% 5 ML VIAL INFILT ONE (14:25)
[2016-11-28] MEDS ORDERED: Ondansetron 4 MG/2 ML VIAL IVP ONE (14:25)
[2016-11-28] MEDS ORDERED: *HR* Propofol 200 MG/20 ML VIAL IVP ONE (14:25)
[2016-11-28] MEDS ORDERED: *HR* Succinylcholine 200 MG/10 ML VIAL IVP ONE (14:25)
[2016-11-28] MEDS ORDERED: 0.9 % Sodium Chloride 1,000 ML IVC SCH (15:30)
--- NOTE | 2016-11-28 16:24 | Anesthesia Evaluation Post Op ---
Date of Encounter: 11/28/16 Time of Encounter: 16:23 - Vital Signs Vital Signs: Vital Signs/O2 Sat, Most Current Temp Pulse Resp BP Pulse Ox 97.8 F 69 16 130/74 100 11/28/16 16:04 11/28/16 16:14 11/28/16 16:14 11/28/16 16:14 11/28/16 16:14 - Lungs Lungs: Clear Ascult./Percussion - Airway Airway: Non-obstructed - Cardiovascular Regular Rate - Mental Status Mental Status: Asleep with brisk response to light stimulation - Pain Pain Scale: 0 (denies) Pain Scale used: Numeric (1 - 10) - Nausea Vomiting Nausea Vomiting: Not Present - Hydration Hydration: NPO, Has not voided - Discharge PostOp Status: Transfer Patient to floor
--- NOTE | 2016-11-28 17:52 | Venous Imaging Report ---
LE Venous Duplex Patient Name:Sara Cornelius Order Number:[id number] Procedure Date:11/27/2016 Date:1950ge:66 yrs Gender:Female Location:[facility] Room #: 2A22 Supervisor Vendor Quality:Jean Feldman RN Referring MD:Arturo Mcgraw MD handle assembler:Flor Hudson MD Reading MD:Yehuda Nguyen MD Primary Indications:Edema Secondary Indications: Risk Factors Yes/No Hypertension Yes Diabetes Yes Hypercholesterolemia Yes Smoker Previous No Previous Vascular Surgery No Anticoagulants No Hx of DVT No Hx of Chemotherapy No Trauma to Veins No Recent Surgery No Hx of Superficial Phlebitis No Baljeet Filter No Impressions: Normal bilateral lower extremity deep and superficial venous exam. Recommendations: Test completed on 11/27/2016 at 10:35:00 am. Findings Venous Duplex Results: Right: Venous imaging of the lower extremity reveals full patency and normal vessel compressibility of the right distal iliac, right common femoral, right superficial femoral, right popliteal, right posterior tibial, right peroneal, right great saphenous and right lesser saphenous. Doppler signals in the evaluated veins were normal. Left: Venous imaging of the lower extremity reveals full patency and normal vessel compressibility of the left distal iliac, left common femoral, left superficial femoral, left popliteal, left posterior tibial, left peroneal, left great saphenous and left lesser saphenous. Doppler signals in the evaluated veins were normal. Prior Study: No change compared to prior study dated: 11/27/2016. Lower Extremity Venous Duplex Side Vein Compress Spontaneous Flow Augment Diameter (cm) Depth (cm) Right Distal Iliac Normal Yes Phasic Yes Right Common Femoral Normal Yes Phasic Yes Right Superficial Femoral Normal Yes Phasic Yes Right Popliteal Normal Yes Phasic Yes Right Posterior Tibial Normal Yes Phasic Yes Right Peroneal Normal Yes Phasic Yes Right Great Saphenous Normal Yes Phasic Yes Right Lesser Saphenous Normal Yes Phasic Yes Left Distal Iliac Normal Yes Phasic Yes Left Common Femoral Normal Yes Phasic Yes Left Superficial Femoral Normal Yes Phasic Yes Left Popliteal Normal Yes Phasic Yes Left Posterior Tibial Normal Yes Phasic Yes Left Peroneal Normal Yes Phasic Yes Left Great Saphenous Normal Yes Phasic Yes Left Lesser Saphenous Normal Yes Phasic Yes Updated by Yehuda Nguyen MD on 11/28/2016 5:46:25 PM electronically signed on 11/28/2016 5:46:38 PM with status of Final
[2016-11-28] MEDS: Mirtazapine 15 MG TABLET PO SCH (20:24)
[2016-11-28] MEDS ORDERED: Potassium Chloride 40 MEQ, Lidocaine 1% 2 ML in D5% in Water 500 ML IVPB ONE (22:38)
[2016-11-29 03:52] LABS: Hemoglobin 9.9 g/dL (11.5-15.4); Mean Corpuscular Volume 87.3 fL (83.0-100.0); Red Cell Distribution Width 18.3 % (11.5-14.5)
[2016-11-29 03:59] LABS: Basophils % 0.2 %; Eosinophils # 0.1 K/mcL (0.0-0.6); Eosinophils % 0.6 %; Hematocrit 28.1 % (35.3-44.9); Immature Granulocytes % 0.5 % (0-4); Lymphocytes # 0.7 K/mcL (0.6-4.6); Lymphocytes % 7.6 %; Mean Corpuscular HGB Conc 35.2 g/dL (31.6-35.5); Mean Corpuscular Hemoglobin 30.7 pg (28.0-33.3); Mean Platelet Volume 10.8 fL (9.4-12.4); Monocytes # 0.6 K/mcL (0.0-1.3); Monocytes % 6.3 %; Neutrophils # 7.9 K/mcL (1.6-8.9); Platelet Count 307 K/mcL (140-400); Red Blood Count 3.22 M/mcL (3.82-4.97); Segmented Neutrophils % 84.8 %
[2016-11-29 04:14] LABS: Anisocytosis 1+ (Not Present); Hypochromasia Present (Not Present); Platelet Estimate Normal (Normal)
[2016-11-29] MEDS: *HR* Morphine Sulfate SR (12 HR) 15 MG TABLET.ER PO SCH ×2 (05:35→20:30)
[2016-11-29] MEDS: *HR* Enoxaparin 40 MG/0.4 ML SYRINGE SQ SCH (05:36)
[2016-11-29 05:55] LABS: Alanine Aminotransferase 92 Units/L (0-55); Albumin 1.8 g/dL (3.5-5.0); Albumin/Globulin Ratio 0.5 (1.1-2.2); Alkaline Phosphatase 768 Units/L (38-126); Aspartate Amino Transferase 161 Units/L (5-34); Bilirubin,Indirect 4.8 mg/dL (0.0-1.2); Bilirubin,Total 18.8 mg/dL (0.2-1.2); Globulin 3.4 g/dL (2.4-3.5); Total Protein 5.2 g/dL (6.0-8.3)
[2016-11-29 06:28] LABS: BUN/Creatinine Ratio 23 (6-26); Blood Urea Nitrogen 14 mg/dL (7-20); Calcium 7.9 mg/dL (8.6-10.8); Carbon Dioxide 21 mEq/L (19-29); Chloride 98 mEq/L (98-109); Glucose 91 mg/dL (70-99); Osmolality,Calculated 268 (280-300); Sodium 129 mEq/L (136-145); eGFR For African Americans > 60 (> 60); eGFR For Non-African Americans > 60 (> 60)
[2016-11-29 06:31] LABS: Potassium 4.5 mEq/L (3.5-4.5)
--- NOTE | 2016-11-29 07:30 | Oncology Inp Progress Note ---
Date of Encounter: 11/29/16 Time of Encounter: 07:28 Oncology: Subj Interval history: Patient seen and examined at bedside. Chart reviewed for interval details and appreciate ongpoing care by hospital team. 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 Tumor markers including CA-19-9 greater than 270,000 and CEA of 1900 certainly supports a primary GI malignancy. No discrete pancreatic mass reported on imaging to suggest a pancreas primary. The patient may very well be a colon primary malignancy since she has never had a colonoscopy. She is doing about same today and has no new issues. Dr. Pepe was kind enough to discuss patient's case with me yesterday and we agreed that given her persistent jaundice despite supportive measures, consideration of biliary stenting reasonable to relieve obstructive component of her disease (Total and direct bilirubin markedly elevated more so than indirect bilirubin). No other new issues. Review of systems: 12 point review of systems as noted above.All other systems are negative: Physical exam: Vital Signs Temp 97.7 F 11/29/16 07:22 Pulse 74 11/29/16 07:22 Resp 16 11/29/16 07:22 BP 94/58 11/29/16 07:22 Pulse Ox 100 11/29/16 07:22 GENERAL: Alert and oriented, lethargic and chronically ill appearing. Cachectic Mental Status: Affect appropriate for circumstances Skin: No rashes or petechiae. No evidence of skin malignancy Extremities: No edema. No calf swelling or tenderness. No joint deformity. Neurologic: Global weakness but no focal sensorimotor abnormalities. Results: Laboratory Last Values WBC 9.3 K/mcL (4.3-11.1) 11/29/16 03:43 RBC 3.22 M/mcL (3.82-4.97) L 11/29/16 03:43 Hgb 9.9 g/dL (11.5-15.4) L 11/29/16 03:43 Hct 28.1 % (35.3-44.9) L 11/29/16 03:43 MCV 87.3 fL (83.0-100.0) 11/29/16 03:43 MCH 30.7 pg (28.0-33.3) 11/29/16 03:43 MCHC 35.2 g/dL (31.6-35.5) 11/29/16 03:43 RDW 18.3 % (11.5-14.5) H 11/29/16 03:43 Plt Count 307 K/mcL (140-400) 11/29/16 03:43 MPV 10.8 fL (9.4-12.4) 11/29/16 03:43 Reticulocyte # 0.07 M/mcL (0.05-0.10) 11/26/16 23:17 Immature Gran % 0.5 % (0-4) 11/29/16 03:43 Seg Neutrophils % 84.8 % 11/29/16 03:43 Lymphocytes % 7.6 % 11/29/16 03:43 Monocytes % 6.3 % 11/29/16 03:43 Eosinophils % 0.6 % 11/29/16 03:43 Basophils % 0.2 % 11/29/16 03:43 Neutrophils # 7.9 K/mcL (1.6-8.9) 11/29/16 03:43 Lymphocytes # 0.7 K/mcL (0.6-4.6) 11/29/16 03:43 Monocytes # 0.6 K/mcL (0.0-1.3) 11/29/16 03:43 Eosinophils # 0.1 K/mcL (0.0-0.6) 11/29/16 03:43 Basophils # 0.0 K/mcL (0.0-0.2) 11/29/16 03:43 Platelet Estimate Normal (Normal) 11/29/16 03:43 Immature Plt Fraction 3.0 % (1.1-6.1) 11/29/16 03:43 Hypochromasia Present (Not Present) A 11/29/16 03:43 Anisocytosis 1+ (Not Present) A 11/29/16 03:43 Percent Retic 2.0 % (1.6-2.8) 11/26/16 23:17 Immature Retic Fraction 5.1 % (11.0-38.0) L 11/26/16 23:17 Retic Hgb Equivalent 39.3 pg (28.61-36.33) H 11/26/16 23:17 PT 14.8 Seconds (9.4-12.1) H 11/26/16 06:14 INR 1.4 11/26/16 06:14 APTT 22.1 Seconds (26.0-36.0) L 11/26/16 06:14 Sodium 129 mEq/L (136-145) L 11/29/16 05:05 Potassium 4.5 mEq/L (3.5-4.5) 11/29/16 05:05 Chloride 98 mEq/L (98-109) 11/29/16 05:05 Carbon Dioxide 21 mEq/L (19-29) 11/29/16 05:05 BUN 14 mg/dL (7-20) 11/29/16 05:05 Creatinine 0.60 mg/dL (0.57-1.11) 11/29/16 05:05 Est GFR ( Amer) > 60 (> 60) 11/29/16 05:05 Est GFR (Non-Af Amer) > 60 (> 60) 11/29/16 05:05 BUN/Creatinine Ratio 23 (6-26) 11/29/16 05:05 Glucose 91 mg/dL (70-99) 11/29/16 05:05 POC Glucose 116 (58-89) H 11/28/16 20:31 Calculated Osmolality 268 (280-300) L 11/29/16 05:05 Calcium 7.9 mg/dL (8.6-10.8) L 11/29/16 05:05 Magnesium 1.5 mg/dL (1.6-2.6) L 11/27/16 06:25 Iron 50 mcg/dL (50-170) 11/26/16 23:17 % Saturation 26 % (15-50) 11/26/16 23:17 Transferrin 140 mg/dL (180-382) L 11/26/16 23:17 Ferritin 2691 ng/ml (5-204) H 11/26/16 23:17 Total Bilirubin 18.8 mg/dL (0.2-1.2) H 11/29/16 05:05 Direct Bilirubin 14.0 mg/dL (0.0-0.5) H D 11/29/16 05:05 Indirect Bilirubin 4.8 mg/dL (0.0-1.2) H 11/29/16 05:05 AST 161 Units/L (5-34) H 11/29/16 05:05 ALT 92 Units/L (0-55) H 11/29/16 05:05 Alkaline Phosphatase 768 Units/L (38-126) H 11/29/16 05:05 Lactate Dehydrogenase 1622 Units/L (159-327) H 11/26/16 23:17 Troponin I 0.01 ng/mL (0-0.03) 11/25/16 20:41 B-Natriuretic Peptide 29 pg/mL (0-100) 11/25/16 20:41 Serum Total Protein 5.2 g/dL (6.0-8.3) L 11/29/16 05:05 Albumin 1.8 g/dL (3.5-5.0) L 11/29/16 05:05 Globulin 3.4 g/dL (2.4-3.5) 11/29/16 05:05 Albumin/Globulin Ratio 0.5 (1.1-2.2) L 11/29/16 05:05 Carcinoembryonic Ag 1906.4 ng/mL (0-5.0) H 11/26/16 23:17 Vitamin B12 > 2000 pg/mL (213-816) H 11/26/16 23:17 Folate 8.7 ng/mL (7.0-31.4) 11/26/16 23:17 TSH 0.435 mcIU/mL (0.350-4.840) 11/26/16 23:17 Free T4 0.93 ng/dl (0.70-1.48) 11/26/16 23:17 Specimen Rejected Hemolyzed 11/28/16 05:00 Impression/recommendations: Suspected metastatic cancer likely from GI primary: I had a detailed discussion with the patient today regarding the natural history and management of her widely disseminated malignancy which is likely originating from a GI primary source. Panel of tumor markers raises concern about pancreatic primary source but in the absence of a discrete pancreatic mass on imaging, this is likely a primary originated from GI tract. Since she has never had a colonoscopy, consideration for colonoscopy certainly reasonable although will not influence management for systemic therapy. Based on our discussion today, she understands that she has an incurable malignancy regardless of primary source. We discussed options for management including the role of antineoplastic therapy. She will probably have more options for antineoplastic therapy if were able to get her liver function under control. In spite of her severe liver dysfunction an poor general performance status, she will be an appropriate candidate for oxaliplatin and Avastin based regimen with minimal dose modification and possibility of treatment response/survival benefit. We will send her tumor specimen for our BX and MSI testing to evaluate the benefit of EGFR inhibitors and PD 1 blockers respectively both of which she is able to receive despite her liver function We also discussed options for cancer directed, supportive on the treatment including palliative care/hospice. these are equally reasonable option given the incurable nature of her malignancy and appointment general performance status. She is undecided as to treatment regimen at this time and wants to take some time to contemplate her options. I think this is very reasonable. She has a son and daughter in the community but they are apparently not involved in her medical decision making. I encouraged her to consider involving family members including her children in making this complex, challenging decisions regarding treatment direction. In the interim, we will recommend to continue ongoing supportive measures as you are doing. We will follow alongside you and be happy to I am setting of oncologic questions that may arise. I appreciate help from palliative care service is managing her cancer associated symptoms including cachexia, pain, jaundice etc. Anemia: Mild severity. relatively stable since admission. No intervention needed for current counts. We will simply monitor at this time. Thank you for involving us in her care. We'll follow the patient along side you during this hospitalization but please do not hesitate to call regarding interval hematologic questions as they arise. Thank you for your excellent ongoing care for allowing us to see [default value ] while in-house. This report was created using voice recognition software and may contain errors. It was signed but not edited to expedite communication. - Constitutional Vitals: Vital Signs Temp Pulse Resp BP Pulse Ox 11/29/16 07:22 97.7 F 74 16 94/58 100 11/29/16 04:39 97.4 F L 74 16 101/65 94 L 11/28/16 23:21 97.6 F 68 18 95/60 99 11/28/16 20:25 97.6 F 70 18 109/68 94 L 11/28/16 17:32 99.3 F 66 17 117/77 94 L 11/28/16 16:30 97.1 F L 65 16 129/74 100 11/28/16 16:24 80 16 128/74 100 11/28/16 16:14 69 16 130/74 100 11/28/16 16:04 97.8 F 100 16 124/76 100 11/28/16 13:45 98.5 F 75 20 102/67 100 11/28/16 08:19 96 11/28/16 07:45 97.6 F 77 18 101/67 96 Intake and Output 11/28/16 11/29/16 11/29/16 16:59 00:59 08:59 Intake Total 0 / 0 Balance 0 / 0 Intake: Oral 0 / 0 Other: Blood Glucose* 83 116 82 Oncology: Obj Data - Labs CBC & Chem 7: 11/29/16 03:43 11/29/16 05:05 Labs: Laboratory Results - last 24 hr 11/28/16 11/28/16 11/28/16 12:15 17:13 17:28 WBC RBC Hgb Hct MCV MCH MCHC RDW Plt Count MPV Immature Gran % Seg Neutrophils % Lymphocytes % Monocytes % Eosinophils % Basophils % Neutrophils # Lymphocytes # Monocytes # Eosinophils # Basophils # Platelet Estimate Immature Plt Fraction Hypochromasia Anisocytosis Sodium Potassium 4.4 D Chloride Carbon Dioxide BUN Creatinine Est GFR ( Amer) Est GFR (Non-Af Amer) BUN/Creatinine Ratio Glucose POC Glucose 102 H 103 H Calculated Osmolality Calcium Total Bilirubin Direct Bilirubin Indirect Bilirubin AST ALT Alkaline Phosphatase Serum Total Protein Albumin Globulin Albumin/Globulin Ratio 11/28/16 11/29/16 11/29/16 20:31 03:43 05:05 WBC 9.3 RBC 3.22 L Hgb 9.9 L Hct 28.1 L MCV 87.3 MCH 30.7 MCHC 35.2 RDW 18.3 H Plt Count 307 MPV 10.8 Immature Gran % 0.5 Seg Neutrophils % 84.8 Lymphocytes % 7.6 Monocytes % 6.3 Eosinophils % 0.6 Basophils % 0.2 Neutrophils # 7.9 Lymphocytes # 0.7 Monocytes # 0.6 Eosinophils # 0.1 Basophils # 0.0 Platelet Estimate Normal Immature Plt Fraction 3.0 Hypochromasia Present A Anisocytosis 1+ A Sodium 129 L Potassium 4.5 Chloride 98 Carbon Dioxide 21 BUN 14 Creatinine 0.60 Est GFR ( Amer) > 60 Est GFR (Non-Af Amer) > 60 BUN/Creatinine Ratio 23 Glucose 91 POC Glucose 116 H Calculated Osmolality 268 L Calcium 7.9 L Total Bilirubin 18.8 H Direct Bilirubin 14.0 H D Indirect Bilirubin 4.8 H AST 161 H ALT 92 H Alkaline Phosphatase 768 H Serum Total Protein 5.2 L Albumin 1.8 L Globulin 3.4 Albumin/Globulin Ratio 0.5 L - Impressions Impressions Cath/Invasive Procedure 11/28/16 14:15 IMPRESSION: Please refer to the procedure report for further details. D/ / 11/28/2016 16:34:51 Jonn Gonzalez MD / sami Interpreting Provider: Jonn Gonzalez MD - ABG Interpretation ABG results: PT/INR, D-dimer PT 14.8 Seconds (9.4-12.1) H 11/26/16 06:14 Consult Discharge Plan - Plan Referrals: Flor Hudson MD [Primary Care Provider] - 12/03/16 1:45 pm ()
[2016-11-29 08:41] LABS: Cancer Antigen-GI (CA 19-9) 276453 U/mL (0-37)
[2016-11-29] MEDS: Pantoprazole 40 MG VIAL IVP SCH (09:56)
[2016-11-29] MEDS ORDERED: *HR* Succinylcholine 200 MG/10 ML VIAL IVP ONE (10:10)
[2016-11-29] MEDS ORDERED: Lidocaine -MPF 2% 5 ML VIAL INFILT ONE (10:10)
[2016-11-29] MEDS ORDERED: *HR* Propofol 200 MG/20 ML VIAL IVP ONE (10:10)
[2016-11-29] MEDS ORDERED: Ondansetron 4 MG/2 ML VIAL IVP ONE (10:10)
[2016-11-29] MEDS ORDERED: *HR* Metoprolol 5 MG/5 ML VIAL IVP ONE (10:10)
--- NOTE | 2016-11-29 10:37 | Internal Med Progress Note ---
Date of Encounter: 11/29/16 Time of Encounter: 10:32 - Time Spent With Patient Assessment and plan (1) Metastatic cancer Current Visit: Yes Status: Acute Assessment and plan: CT Abdomen/pelvis showed extensive metastasis to lungs, liver, and gallbladder. Primary is unknown. Patient had previous CT in August 2016 and was scheduled to follow up with [facility] for biopsy which were delayed due to patient's and [id number] passing away. CA19-9 elevated at [id number]. Underwent CT-guided biopsy. 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 Appreciate input. Morphine increased to 30 mg twice a day +50 mg every 6 hours as needed (2) Hyperbilirubinemia Current Visit: Yes Status: Acute Assessment and plan: Most likely obstruction from metastatic cancer. bilirubin is 17, stable from yesterday. ERCP yesterday failed to place a stent into the biliary tract Undergo ERCP again today. (3) Swelling of lower extremity Current Visit: Yes Status: Acute Assessment and plan: His bilateral pitting edema. Stable from yesterday. May be 2nd to hypoalbumenemia. DVT r/o as B/L LE duplex WNL. Echo LVEF 65% mild left ventricular diastolic dysfunction. Will continue to monitor. (4) Severe protein-calorie malnutrition Current Visit: Yes Status: Acute Assessment and plan: 2nd to malignancy. Dietitian consulted for further evaluation and recommendations. Continue caridac diet with ensure plus TID. (5) YU (acute kidney injury) Current Visit: Yes Status: Acute Assessment and plan: Resolved. Scr is now .59. Will continue to monitor. Most likely 2nd to dehydration. (6) Cancer associated pain Current Visit: Yes Status: Acute Assessment and plan: Patient has been started on MS contin and Morphine for breakthrough pain. Continue tramadol. Palliative on board. Appreciate input. (7) Goals of care, counseling/discussion Current Visit: Yes Status: Acute Assessment and plan: Patient has been depressed as her and mother in the past two months. As of now patient states this is alot to take in. Still need to discuss what is plan post discharge: hospice, palliative care? Also awaiting pathology report to guide discussion. Code status changed to [id number] DNI. (8) Hypokalemia Current Visit: Yes Status: Acute Assessment and plan: Replacing potassium of 3.2. Goal is >3.5. Repeat K+ levels in afternoon. (9) Hyponatremia Current Visit: Yes Status: Acute Assessment and plan: Stable. 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 Monitor by repeat BMP. (10) Anemia Current Visit: Yes Status: Acute Assessment and plan: most likely 2nd to malignancy. hgb stable Iron panel indicates anemia of chronic disease. B12, folate WNL hem/onc on board. appreciate input. Greater than 35 minutes - Subjective Interval history: The patient is extremely sleepy, complains of abdominal pain 8 out of 10 in intensity. Denies any chest pain or shortness of breath, unable to complete review of systems due to lethargy - Constitutional Vitals: Temp Pulse Resp BP Pulse Ox 97.7 F 74 16 94/58 100 11/29/16 07:22 11/29/16 07:22 11/29/16 07:22 11/29/16 07:22 11/29/16 10:04 General appearance: Present: cachectic, cooperative, A&O X 2, pleasant, underweight Exam: Appears icteric - Head Head exam: Present: atraumatic, normocephalic - Eye Eye exam: Present: PERRL, conjuntiva pink, sclera anicteric Pupils: Present: PERRL - Neck Neck exam general surgery: Present: supple, trachea midline. Absent: lymphadenopathy - Respiratory Respiratory exam: Present: decreased breath sounds, CTAB. Absent: accessory muscle use, rales, rhonchi, wheezes - Cardiovascular Cardiovascular exam: Present: RRR, +S1, +S2. Absent: diastolic murmur, gallop, rubs, systolic murmur - GI/Abdominal GI/Abdominal exam: Present: normal bowel sounds, soft, no peritoneal signs. Absent: distended, tenderness Additional comments: Multiple hard masses felt throughout her abdomen, tender to touch - Extremities Exam Extremities exam: Present: warm, radial pulses palpable and symetrical. Absent : calf tenderness, cyanotic, pedal edema - Neurological Exam Neurological exam: Present: CN II-XII intact, no focal deficits. Absent: oriented X3, pronater drift, facial droop, speech deficit - Skin Skin exam: Present: dry, intact Internal Medicine: Result - Labs CBC & Chem 7: 11/29/16 03:43 11/29/16 05:05 Labs: Short CBC 11/29/16 Range/Units 03:43 WBC 9.3 (4.3-11.1) K/mcL Hgb 9.9 L (11.5-15.4) g/dL Hct 28.1 L (35.3-44.9) % Plt Count 307 (140-400) K/mcL Neutrophils # 7.9 (1.6-8.9) K/mcL BMP 11/28/16 11/29/16 17:13 05:05 Sodium 129 L Potassium 4.4 D 4.5 Chloride 98 Carbon Dioxide 21 BUN 14 Creatinine 0.60 Glucose 91 Calcium 7.9 L Liver Function 11/29/16 Range/Units 05:05 Total Bilirubin 18.8 H (0.2-1.2) mg/dL Direct Bilirubin 14.0 H D (0.0-0.5) mg/dL AST 161 H (5-34) Units/L ALT 92 H (0-55) Units/L Alkaline Phosphatase 768 H (38-126) Units/L Albumin 1.8 L (3.5-5.0) g/dL - ABG Interpretation ABG results: PT/INR, D-dimer PT 14.8 Seconds (9.4-12.1) H 11/26/16 06:14 - Impressions Impressions Cath/Invasive Procedure 11/28/16 14:15 IMPRESSION: Please refer to the procedure report for further details. D/ / 11/28/2016 16:34:51 Jonn Gonzalez MD / sami Interpreting Provider: Jonn Gonzalez MD Consult Discharge Plan - Plan Referrals: Flor Hudson MD [Primary Care Provider] - 12/03/16 1:45 pm ()
[2016-11-29] MEDS: *HR* Morphine 2 MG/ML SYRINGE IVP PRN (11:59)
[2016-11-29 13:00] LABS: Bilirubin,Urine Large (Negative); Blood,Urine Negative (Negative); Clarity,Urine Cloudy (Clear); Color,Urine Orange (Yellow); Glucose,Urine (UA) Normal (Normal); Ketones,Urine Trace mg/dL (Negative); Leukocyte Esterase,Urine Large (Negative); Nitrite,Urine Negative (Negative); PH,Urine 6.5 pH Units (5.0-8.0); Protein,Urine 30 mg/dL (Neg-Trace); Specific Gravity,Urine 1.019 (1.010-1.025); Urobilinogen,Urine Normal (Normal)
[2016-11-29 13:02] LABS: Bacteria,Urine None Seen per hpf (None-Few); Hyaline Casts,Urine None Seen per lpf (None-Few); Squamous Epithelial Cell,Urine Many per lpf (None-Few); WBC,Urine 50-100 per hpf (0-3)
[2016-11-29] MEDS ORDERED: Indomethacin 50 MG SUPP.RECT RC ONE (14:35)
--- NOTE | 2016-11-29 14:48 | Anesthesia Evaluation Post Op ---
Date of Encounter: 11/29/16 Time of Encounter: 14:46 - Vital Signs Vital Signs: 95/63 92 16 97% - Lungs Lungs: Clear Ascult./Percussion - Airway Airway: Non-obstructed - Cardiovascular Regular Rate - Mental Status Mental Status: Asleep with brisk response to light stimulation - Pain Pain Scale: 1 Pain Scale used: Numeric (1 - 10) - Nausea Vomiting Nausea Vomiting: Not Present - Hydration Hydration: NPO, Has not voided - Discharge PostOp Status: Transfer Patient to floor (pt awake, VSS, good resp effort)
--- NOTE | 2016-11-29 15:17 | Event Note ---
Date of Encounter: 11/29/16 Time of Encounter: 15:15 Patient has been gone most of afternoon for ERCP. Stent placed - pt son states pt will be prepped Friday for colonoscopy on Friday. I notified oncology as she has outpt appt scheduled for that day. Family states she has been comfortable today. Will check on symptoms this and follow up on clinical status on Friday.
--- NOTE | 2016-11-29 16:48 | Event Note ---
Date of Encounter: 11/29/16 Time of Encounter: 16:39 I spoke to Christine Rosario, Palliative Care. Patient was scheduled to see Dr Ward on 12/02/16 at 1010 am as a new consult here at [facility] to discuss liver biopsy results with patient and family members. This is difficult to do as inpatient because there may be other scans and testing before we can give prognosis or treatment modalities. I updated PC to advise family to come to outpatient follow up appointment with the patient. I spoke to Dr Ward. He said that he spoke at length with the patient about results of biopsy, but family was not present. I was notified that patient will be getting colonoscopy on Friday, so we will cancel appointment with Dr Ward and reschedule for another date and time next week. Dr Hernandez fondant puff maker through 12/05/16.
[2016-11-29] MEDS: Mirtazapine 15 MG TABLET PO SCH (20:31)
[2016-11-29 20:40] LABS: Alpha 2 Globulin (PEP) 0.91 g/dL (0.48-1.05); Beta Globulin (PEP) 0.61 g/dL (0.48-1.10)
[2016-11-30 04:13] LABS: Basophils % 0.1 %; Eosinophils % 0.2 %; Immature Granulocytes % 0.7 % (0-4); Lymphocytes # 0.7 K/mcL (0.6-4.6); Mean Corpuscular HGB Conc 34.5 g/dL (31.6-35.5); Mean Corpuscular Hemoglobin 30.8 pg (28.0-33.3); Mean Corpuscular Volume 89.2 fL (83.0-100.0); Mean Platelet Volume 10.3 fL (9.4-12.4); Monocytes # 0.7 K/mcL (0.0-1.3); Monocytes % 6.9 %; Neutrophils # 8.6 K/mcL (1.6-8.9); Platelet Count 229 K/mcL (140-400); Red Blood Count 3.25 M/mcL (3.82-4.97); Red Cell Distribution Width 18.8 % (11.5-14.5); Segmented Neutrophils % 85.1 %
[2016-11-30] MEDS: *HR* Enoxaparin 40 MG/0.4 ML SYRINGE SQ SCH (06:06)
[2016-11-30 07:52] LABS: Alanine Aminotransferase 139 Units/L (0-55); Albumin 1.8 g/dL (3.5-5.0); Albumin/Globulin Ratio 0.5 (1.1-2.2); Alkaline Phosphatase 814 Units/L (38-126); Aspartate Amino Transferase 319 Units/L (5-34); BUN/Creatinine Ratio 27 (6-26); Bilirubin,Direct 14.1 mg/dL (0.0-0.5); Bilirubin,Indirect 4.5 mg/dL (0.0-1.2); Bilirubin,Total 18.6 mg/dL (0.2-1.2); Blood Urea Nitrogen 20 mg/dL (7-20); Carbon Dioxide 19 mEq/L (19-29); Chloride 100 mEq/L (98-109); Globulin 3.4 g/dL (2.4-3.5); Glucose 62 mg/dL (70-99); Osmolality,Calculated 273 (280-300); Potassium 4.5 mEq/L (3.5-4.5); Sodium 131 mEq/L (136-145); Total Protein 5.2 g/dL (6.0-8.3); eGFR For African Americans > 60 (> 60); eGFR For Non-African Americans > 60 (> 60)
[2016-11-30] MEDS: *HR* Morphine Sulfate SR (12 HR) 15 MG TABLET.ER PO SCH ×2 (08:33→17:53)
[2016-11-30] MEDS: Pantoprazole 40 MG VIAL IVP SCH (08:33)
[2016-11-30] MEDS: D5% in 0.9% NACL 1,000 ML IVC SCH ×2 (09:27→22:39)
--- NOTE | 2016-11-30 10:45 | Palliative Progress Note ---
Date of Encounter: 11/30/16 Time of Encounter: 07:40 - Assessment and plan (1) Obstructive jaundice due to cancer Current Visit: Yes Status: Acute Assessment and plan: Patient is status post ERCP with stent placement. Owing continue current treatment. (2) Metastatic cancer Current Visit: Yes Status: Acute Assessment and plan: Workup is in progress colonoscopy tomorrow. Oncology is following. (3) Cancer associated pain Current Visit: Yes Status: Acute Assessment and plan: Current medications appear to be effective no changes today. (4) Nausea Current Visit: Yes Status: Acute Assessment and plan: Currently nausea medications appear to be effective no changes at this time per patient request. (5) Goals of care, counseling/discussion Current Visit: Yes Status: Acute Assessment and plan: Patient is DNR CCA DNI, patient is expecting full workup of the cancer and considering what her options are. - Time Spent With Patient Total time spent is greater than 50% in coordination of care (as documented) at patient's floor/unit and/or counseling patient: - Constitutional Vitals: Abnormal lab results RBC 3.25 M/mcL (3.82-4.97) L 11/30/16 04:00 Hgb 10.0 g/dL (11.5-15.4) L 11/30/16 04:00 Hct 29.0 % (35.3-44.9) L 11/30/16 04:00 RDW 18.8 % (11.5-14.5) H 11/30/16 04:00 Hypochromasia Present (Not Present) A 11/29/16 03:43 Anisocytosis 1+ (Not Present) A 11/29/16 03:43 Immature Retic Fraction 5.1 % (11.0-38.0) L 11/26/16 23:17 Retic Hgb Equivalent 39.3 pg (28.61-36.33) H 11/26/16 23:17 PT 14.8 Seconds (9.4-12.1) H 11/26/16 06:14 APTT 22.1 Seconds (26.0-36.0) L 11/26/16 06:14 Sodium 131 mEq/L (136-145) L 11/30/16 06:58 BUN/Creatinine Ratio 27 (6-26) H 11/30/16 06:58 Glucose 62 mg/dL (70-99) L 11/30/16 06:58 Calculated Osmolality 273 (280-300) L 11/30/16 06:58 Calcium 8.0 mg/dL (8.6-10.8) L 11/30/16 06:58 Magnesium 1.5 mg/dL (1.6-2.6) L 11/27/16 06:25 Transferrin 140 mg/dL (180-382) L 11/26/16 23:17 Ferritin 2691 ng/ml (5-204) H 11/26/16 23:17 Total Bilirubin 18.6 mg/dL (0.2-1.2) H 11/30/16 06:58 Direct Bilirubin 14.1 mg/dL (0.0-0.5) H 11/30/16 06:58 Indirect Bilirubin 4.5 mg/dL (0.0-1.2) H 11/30/16 06:58 AST 319 Units/L (5-34) H 11/30/16 06:58 ALT 139 Units/L (0-55) H 11/30/16 06:58 Alkaline Phosphatase 814 Units/L (38-126) H 11/30/16 06:58 Lactate Dehydrogenase 1622 Units/L (159-327) H 11/26/16 23:17 Serum Total Protein 5.2 g/dL (6.0-8.3) L 11/30/16 06:58 Albumin 1.8 g/dL (3.5-5.0) L 11/30/16 06:58 Albumin/Globulin Ratio 0.5 (1.1-2.2) L 11/30/16 06:58 Carcinoembryonic Ag 1906.4 ng/mL (0-5.0) H 11/26/16 23:17 CA 19-9 Antigen [id number] U/mL (0-37) H 11/26/16 23:17 Vitamin B12 > 2000 pg/mL (213-816) H 11/26/16 23:17 Urine Color Isabella (Yellow) A 11/29/16 12:30 Urine Clarity Cloudy (Clear) A 11/29/16 12:30 Urine Protein 30 mg/dL (Neg-Trace) H 11/29/16 12:30 Urine Ketones Trace mg/dL (Negative) H 11/29/16 12:30 Urine Bilirubin Large (Negative) H 11/29/16 12:30 Ur Leukocyte Esterase Large (Negative) H 11/29/16 12:30 Urine Microscopic RBC 3-5 per hpf (0-3) H 11/29/16 12:30 Urine Microscopic WBC 50-100 per hpf (0-3) H 11/29/16 12:30 Ur Squamous Epith Cells Many per lpf (None-Few) H 11/29/16 12:30 Palliative Quality Palliative Quality: Screen for Code Status: NA (discuss later), Screen for Goals of Care: NA (awaiting biopsy), Screen for Pain: Yes, If Pain Regimen Started, Initiate Bowel Regimen: NA (diarrhea), Screen for Nausea/Vomitting: Yes Code Status: 11/27/16 11:52 CODE [Resuscitation Status: Active] [RES] Routine Comment: Resuscitation Status: [id number] - Labs CBC & Chem 7: 11/30/16 04:00 11/30/16 06:58 Labs: Laboratory Results - last 24 hr 11/29/16 11/29/16 11/29/16 07:26 10:09 11:07 WBC RBC Hgb Hct MCV MCH MCHC RDW Plt Count MPV Immature Gran % Seg Neutrophils % Lymphocytes % Monocytes % Eosinophils % Basophils % Neutrophils # Lymphocytes # Monocytes # Eosinophils # Basophils # Sodium Potassium Chloride Carbon Dioxide BUN Creatinine Est GFR ( Amer) Est GFR (Non-Af Amer) BUN/Creatinine Ratio Glucose POC Glucose 82 81 Calculated Osmolality Calcium Total Bilirubin Direct Bilirubin Indirect Bilirubin AST ALT Alkaline Phosphatase Ammonia 36 Serum Total Protein Albumin Globulin Albumin/Globulin Ratio Urine Color Urine Clarity Urine pH Ur Specific [place] Urine Protein Urine Glucose (UA) Urine Ketones Urine Blood Urine Nitrite Urine Bilirubin Urine Urobilinogen Ur Leukocyte Esterase Urine Microscopic RBC Urine Microscopic WBC Ur Squamous Epith Cells Urine Bacteria Hyaline Casts Specimen Rejected 11/29/16 11/29/16 11/30/16 12:30 12:31 04:00 WBC 10.1 RBC 3.25 L Hgb 10.0 L Hct 29.0 L MCV 89.2 MCH 30.8 MCHC 34.5 RDW 18.8 H Plt Count 229 MPV 10.3 Immature Gran % 0.7 Seg Neutrophils % 85.1 Lymphocytes % 7.0 Monocytes % 6.9 Eosinophils % 0.2 Basophils % 0.1 Neutrophils # 8.6 Lymphocytes # 0.7 Monocytes # 0.7 Eosinophils # 0.0 Basophils # 0.0 Sodium Potassium Chloride Carbon Dioxide BUN Creatinine Est GFR ( Amer) Est GFR (Non-Af Amer) BUN/Creatinine Ratio Glucose POC Glucose 78 Calculated Osmolality Calcium Total Bilirubin Direct Bilirubin Indirect Bilirubin AST ALT Alkaline Phosphatase Ammonia Serum Total Protein Albumin Globulin Albumin/Globulin Ratio Urine Color Isabella A Urine Clarity Cloudy A Urine pH 6.5 Ur Specific [place] 1.019 Urine Protein 30 H Urine Glucose (UA) Normal Urine Ketones Trace H Urine Blood Negative Urine Nitrite Negative Urine Bilirubin Large H Urine Urobilinogen Normal Ur Leukocyte Esterase Large H Urine Microscopic RBC 3-5 H Urine Microscopic WBC 50-100 H Ur Squamous Epith Cells Many H Urine Bacteria None Seen Hyaline Casts None Seen Specimen Rejected 11/30/16 11/30/16 11/30/16 04:00 06:58 08:28 WBC RBC Hgb Hct MCV MCH MCHC RDW Plt Count MPV Immature Gran % Seg Neutrophils % Lymphocytes % Monocytes % Eosinophils % Basophils % Neutrophils # Lymphocytes # Monocytes # Eosinophils # Basophils # Sodium 131 L Potassium 4.5 Chloride 100 Carbon Dioxide 19 BUN 20 Creatinine 0.73 Est GFR ( Amer) > 60 Est GFR (Non-Af Amer) > 60 BUN/Creatinine Ratio 27 H Glucose 62 L POC Glucose 70 Calculated Osmolality 273 L Calcium 8.0 L Total Bilirubin 18.6 H Direct Bilirubin 14.1 H Indirect Bilirubin 4.5 H AST 319 H ALT 139 H Alkaline Phosphatase 814 H Ammonia Serum Total Protein 5.2 L Albumin 1.8 L Globulin 3.4 Albumin/Globulin Ratio 0.5 L Urine Color Urine Clarity Urine pH Ur Specific [place] Urine Protein Urine Glucose (UA) Urine Ketones Urine Blood Urine Nitrite Urine Bilirubin Urine Urobilinogen Ur Leukocyte Esterase Urine Microscopic RBC Urine Microscopic WBC Ur Squamous Epith Cells Urine Bacteria Hyaline Casts Specimen Rejected Hemolyzed - Impressions Impressions Cath/Invasive Procedure 11/29/16 14:00 IMPRESSION: Fluoroscopy provided for ERCP procedure. Please see the intraoperative note for complete details. D/ / José Manuel Brewer MD / José Manuel Brewer MD Interpreting Provider: José Manuel Brewer MD - ABG Interpretation ABG results: PT/INR, D-dimer PT 14.8 Seconds (9.4-12.1) H 11/26/16 06:14 Consult Discharge Plan - Plan Referrals: Flor Hudson MD [Primary Care Provider] - 12/03/16 1:45 pm () Osorio Ward MD [Partnered Physician] - 12/02/16 10:10 am
--- NOTE | 2016-11-30 12:54 | Internal Med Progress Note ---
Date of Encounter: 11/30/16 Time of Encounter: 12:50 - Time Spent With Patient (1) Metastatic cancer Current Visit: Yes Status: Acute Assessment and plan: CT Abdomen/pelvis showed extensive metastasis to lungs, liver, and gallbladder. Primary is unknown. Patient had previous CT in August 2016 and was scheduled to follow up with [facility] for biopsy which were delayed due to patient's and [id number] passing away. CA19-9 elevated at 276,453. Underwent CT-guided biopsy. 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 Appreciate input. Morphine increased to 30 mg twice a day plus 15 mg PRN Scheduled to have colonoscopy on Friday (2) Hyperbilirubinemia Current Visit: Yes Status: Acute Assessment and plan: Most likely obstruction from metastatic cancer. bilirubin is 18, 1st ERCP failed to place a stent into the biliary tract, ERCP from 11/29/16 with sucessful stent placement (3) Swelling of lower extremity Current Visit: Yes Status: Acute Assessment and plan: His bilateral pitting edema. Stable from yesterday. May be 2nd to hypoalbumenemia. DVT r/o as B/L LE duplex WNL. Echo LVEF 65% mild left ventricular diastolic dysfunction. Will continue to monitor. (4) Severe protein-calorie malnutrition Current Visit: Yes Status: Acute Assessment and plan: 2nd to malignancy. Dietitian consulted for further evaluation and recommendations. Continue caridac diet with ensure plus TID. may start TPN (5) YU (acute kidney injury) Current Visit: Yes Status: Acute Assessment and plan: Resolved. Most likely 2nd to dehydration. (6) Cancer associated pain Current Visit: Yes Status: Acute Assessment and plan: Patient has been started on MS contin and Morphine for breakthrough pain. Continue tramadol. Palliative on board. Appreciate input. (7) Goals of care, counseling/discussion Current Visit: Yes Status: Acute Assessment and plan: Patient has been depressed as her and mother in the past two months. As of now patient states this is alot to take in. Still need to discuss what is plan post discharge: hospice, palliative care? Also awaiting pathology report to guide discussion. Code status changed to [id number] DNI. (8) Hypokalemia Current Visit: Yes Status: Acute Assessment and plan: Replacing potassium of 3.2. Goal is >3.5. Repeat K+ levels in afternoon. (9) Hyponatremia Current Visit: Yes Status: Acute Assessment and plan: Stable. (10) Anemia Current Visit: Yes Status: Acute Assessment and plan: most likely 2nd to malignancy. hgb stable Iron panel indicates anemia of chronic disease. B12, folate WNL hem/onc on board. appreciate input. Greater than 35 minutes - Subjective Interval history: The patient is more awake, complains of abdominal pain 7 out of 10 in intensity. Denies any chest pain or shortness of breath, the pressure on her abdomen has decreased slightly, denies any fevers, mild nausea. - Constitutional Vitals: Temp Pulse Resp BP Pulse Ox 97.9 F 91 16 97/63 95 11/29/16 23:54 11/29/16 23:54 11/29/16 23:54 11/29/16 23:54 11/29/16 23:54 General appearance: Present: cachectic, cooperative, A&O X 3, pleasant, underweight - Head Head exam: Present: atraumatic, normocephalic - Eye Eye exam: Present: PERRL, conjuntiva pink, sclera anicteric Pupils: Present: PERRL - Neck Neck exam general surgery: Present: supple, trachea midline. Absent: lymphadenopathy - Respiratory Respiratory exam: Present: decreased breath sounds, CTAB. Absent: accessory muscle use, rales, rhonchi, wheezes - Cardiovascular Cardiovascular exam: Present: RRR, +S1, +S2. Absent: diastolic murmur, gallop, rubs, systolic murmur - GI/Abdominal GI/Abdominal exam: Present: distended (Mildly tender to touch, multiple masses) , normal bowel sounds, soft, no peritoneal signs. Absent: tenderness - Extremities Exam Extremities exam: Present: pedal edema (+2 pitting edema both lower extremities) , warm, radial pulses palpable and symetrical. Absent: calf tenderness, cyanotic - Neurological Exam Neurological exam: Present: CN II-XII intact, oriented X3, no focal deficits. Absent: pronater drift, facial droop, speech deficit - Skin Skin exam: Present: dry, intact Internal Medicine: Result - Labs CBC & Chem 7: 11/30/16 04:00 11/30/16 06:58 Labs: Short CBC 11/30/16 Range/Units 04:00 WBC 10.1 (4.3-11.1) K/mcL Hgb 10.0 L (11.5-15.4) g/dL Hct 29.0 L (35.3-44.9) % Plt Count 229 (140-400) K/mcL Neutrophils # 8.6 (1.6-8.9) K/mcL BMP 11/30/16 06:58 Sodium 131 L Potassium 4.5 Chloride 100 Carbon Dioxide 19 BUN 20 Creatinine 0.73 Glucose 62 L Calcium 8.0 L Liver Function 11/30/16 Range/Units 06:58 Total Bilirubin 18.6 H (0.2-1.2) mg/dL Direct Bilirubin 14.1 H (0.0-0.5) mg/dL AST 319 H (5-34) Units/L ALT 139 H (0-55) Units/L Alkaline Phosphatase 814 H (38-126) Units/L Albumin 1.8 L (3.5-5.0) g/dL Urine 11/29/16 Range/Units 12:30 Urine Color [place] A (Yellow) Urine Clarity Cloudy A (Clear) Urine pH 6.5 (5.0-8.0) pH Units Ur Specific [place] 1.019 (1.010-1.025) Urine Protein 30 H (Neg-Trace) mg/dL Urine Glucose (UA) Normal (Normal) mg/dL - ABG Interpretation ABG results: PT/INR, D-dimer PT 14.8 Seconds (9.4-12.1) H 11/26/16 06:14 - Impressions Impressions Cath/Invasive Procedure 11/29/16 14:00 IMPRESSION: Fluoroscopy provided for ERCP procedure. Please see the intraoperative note for complete details. D/ / José Manuel Brewer MD / José Manuel Brewer MD Interpreting Provider: José Manuel Brewer MD Consult Discharge Plan - Plan Referrals: Flor Hudson MD [Primary Care Provider] - 12/03/16 1:45 pm () Osorio Ward MD [Partnered Physician] - 12/02/16 10:10 am
[2016-11-30] MEDS: Mirtazapine 15 MG TABLET PO SCH (22:42)
[2016-11-30] MEDS: traMADol 50 MG TABLET PO PRN (22:42)
[2016-12-01] MEDS: *HR* Morphine Sulfate SR (12 HR) 15 MG TABLET.ER PO SCH ×2 (06:02→17:55)
[2016-12-01] MEDS: *HR* Enoxaparin 40 MG/0.4 ML SYRINGE SQ SCH (06:02)
--- NOTE | 2016-12-01 08:38 | Internal Med Progress Note ---
Date of Encounter: 12/01/16 Time of Encounter: 08:35 - Time Spent With Patient (1) Metastatic cancer Current Visit: Yes Status: Acute Assessment and plan: CT Abdomen/pelvis showed extensive metastasis to lungs, liver, and gallbladder. Primary is unknown. Patient had previous CT in August 2016 and was scheduled to follow up with [facility] for biopsy which were delayed due to patient's and [id number] passing away. CA19-9 elevated at 276,453. Underwent CT-guided biopsy. 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 Appreciate input. Morphine increased to 30 mg twice a day plus 15 mg PRN Scheduled to have colonoscopy on Friday, bowel prep to start tonight (2) Hyperbilirubinemia Current Visit: Yes Status: Acute Assessment and plan: Most likely obstruction from metastatic cancer. bilirubin is 18 ( today's labs pending) 1st ERCP failed to place a stent into the biliary tract, 2nd ERCP from 11/29/16 with successful stent placement (3) Swelling of lower extremity Current Visit: Yes Status: Acute Assessment and plan: His bilateral pitting edema. Stable from yesterday. May be 2nd to hypoalbumenemia. DVT r/o as B/L LE duplex WNL. Echo LVEF 65% mild left ventricular diastolic dysfunction. Will continue to monitor. (4) Severe protein-calorie malnutrition Current Visit: Yes Status: Acute Assessment and plan: 2nd to malignancy. Dietitian consulted for further evaluation and recommendations. Continue caridac diet with ensure plus TID. may start TPN (5) YU (acute kidney injury) Current Visit: Yes Status: Acute Assessment and plan: Resolved. Most likely 2nd to dehydration. (6) Cancer associated pain Current Visit: Yes Status: Acute Assessment and plan: Patient has been started on MS contin and Morphine for breakthrough pain. Continue tramadol. Palliative on board. Appreciate input. (7) Goals of care, counseling/discussion Current Visit: Yes Status: Acute Assessment and plan: Patient has been depressed as her and mother in the past two months. As of now patient states this is alot to take in. Still need to discuss what is plan post discharge: hospice, palliative care? Also awaiting pathology report to guide discussion. Code status changed to [id number] DNI. (8) Hypokalemia Current Visit: Yes Status: Acute Assessment and plan: Repleted. (9) Hyponatremia Current Visit: Yes Status: Acute Assessment and plan: Stable. (10) Anemia Current Visit: Yes Status: Acute Assessment and plan: most likely 2nd to malignancy. hgb stable Iron panel indicates anemia of chronic disease. B12, folate WNL hem/onc on board. appreciate input. Greater than 35 minutes - Subjective Interval history: Complains of abdominal pain 8 out of 10 in intensity. Has appetite. Denies any chest pain or shortness of breath, the pressure on her abdomen has decreased slightly, denies any fevers, mild nausea. - Constitutional Vitals: Temp Pulse Resp BP Pulse Ox 97.6 F 88 16 93/62 96 12/01/16 06:38 12/01/16 06:38 12/01/16 06:38 12/01/16 06:38 12/01/16 06:38 General appearance: Present: cachectic, cooperative, A&O X 3, pleasant, underweight Exam: icteric - Head Head exam: Present: atraumatic, normocephalic - Eye Eye exam: Present: PERRL, conjuntiva pink, sclera anicteric Pupils: Present: PERRL - Neck Neck exam general surgery: Present: supple, trachea midline. Absent: lymphadenopathy - Respiratory Respiratory exam: Present: CTAB. Absent: accessory muscle use, rales, rhonchi, wheezes - Cardiovascular Cardiovascular exam: Present: RRR, +S1, +S2. Absent: diastolic murmur, gallop, rubs, systolic murmur - GI/Abdominal GI/Abdominal exam: Present: distended (ascites, multiple masses felt), normal bowel sounds, soft, no peritoneal signs. Absent: tenderness - Extremities Exam Extremities exam: Present: warm, radial pulses palpable and symetrical. Absent : calf tenderness, cyanotic, pedal edema - Neurological Exam Neurological exam: Present: CN II-XII intact, oriented X3, no focal deficits. Absent: pronater drift, facial droop, speech deficit - Skin Skin exam: Present: dry, intact Internal Medicine: Result - Labs CBC & Chem 7: 11/30/16 04:00 11/30/16 06:58 - ABG Interpretation ABG results: PT/INR, D-dimer PT 14.8 Seconds (9.4-12.1) H 11/26/16 06:14 Consult Discharge Plan - Plan Referrals: Flor Hudson MD [Primary Care Provider] - 12/03/16 1:45 pm () Osorio Ward MD [Partnered Physician] - 12/02/16 10:10 am
[2016-12-01] MEDS: Pantoprazole 40 MG VIAL IVP SCH (08:47)
[2016-12-01] MEDS: traMADol 50 MG TABLET PO PRN (08:47)
[2016-12-01 08:52] LABS: Hematocrit 30.2 % (35.3-44.9); Hemoglobin 10.2 g/dL (11.5-15.4); Mean Corpuscular HGB Conc 33.8 g/dL (31.6-35.5); Mean Corpuscular Hemoglobin 30.4 pg (28.0-33.3); Mean Corpuscular Volume 89.9 fL (83.0-100.0); Mean Platelet Volume 10.4 fL (9.4-12.4); Platelet Count 259 K/mcL (140-400); Red Blood Count 3.36 M/mcL (3.82-4.97); Red Cell Distribution Width 18.6 % (11.5-14.5)
[2016-12-01 09:19] LABS: Alanine Aminotransferase 123 Units/L (0-55); Albumin/Globulin Ratio 0.5 (1.1-2.2); Alkaline Phosphatase 708 Units/L (38-126); Aspartate Amino Transferase 219 Units/L (5-34); BUN/Creatinine Ratio 33 (6-26); Blood Urea Nitrogen 23 mg/dL (7-20); Calcium 7.3 mg/dL (8.6-10.8); Carbon Dioxide 18 mEq/L (19-29); Chloride 99 mEq/L (98-109); Globulin 3.4 g/dL (2.4-3.5); Glucose 70 mg/dL (70-99); Osmolality,Calculated 268 (280-300); Potassium 4.9 mEq/L (3.5-4.5); Sodium 128 mEq/L (136-145); Total Protein 5.2 g/dL (6.0-8.3); eGFR For African Americans > 60 (> 60); eGFR For Non-African Americans > 60 (> 60)
[2016-12-01 09:20] LABS: Albumin 1.8 g/dL (3.5-5.0)
[2016-12-01] MEDS: D5% in 0.9% NACL 1,000 ML IVC SCH (14:30)
[2016-12-01] MEDS ORDERED: SODIUM CHLORIDE/NAHCO3/KCL/PEG 4,000 ML SOLN.RECON PO ONE ×2 (17:00→21:00)
[2016-12-01 17:43] LABS: IFE Reflexed NOT DONE
[2016-12-01] MEDS: Mirtazapine 15 MG TABLET PO SCH (20:59)
[2016-12-01] MEDS: Ondansetron 4 MG/2 ML VIAL IVP PRN (21:12)
[2016-12-02] MEDS: D5% in 0.9% NACL 1,000 ML IVC SCH ×2 (02:37→15:11)
[2016-12-02] MEDS: *HR* Enoxaparin 40 MG/0.4 ML SYRINGE SQ SCH (05:19)
[2016-12-02] MEDS: *HR* Morphine Sulfate SR (12 HR) 15 MG TABLET.ER PO SCH ×2 (05:19→17:58)
--- NOTE | 2016-12-02 10:08 | Internal Med Progress Note ---
Date of Encounter: 12/02/16 Time of Encounter: 10:07 - Time Spent With Patient (1) Metastatic cancer Current Visit: Yes Status: Acute Assessment and plan: CT Abdomen/pelvis showed extensive metastasis to lungs, liver, and gallbladder. Primary is unknown. Patient had previous CT in August 2016 and was scheduled to follow up with [facility] for biopsy which were delayed due to patient's and [id number] passing away. CA19-9 elevated at 276,453. Underwent CT-guided biopsy. 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 Appreciate input. Morphine increased to 30 mg twice a day plus 15 mg PRN Scheduled to have colonoscopy today, bowel prep started last night (2) Hyperbilirubinemia Current Visit: Yes Status: Acute Assessment and plan: Most likely obstruction from metastatic cancer. bilirubin is 20 1st [address] failed to place a stent into the biliary tract, 2nd ERCP from 11/29/16 with successful stent placement (3) Swelling of lower extremity Current Visit: Yes Status: Acute Assessment and plan: His bilateral pitting edema. Stable from yesterday. May be 2nd to hypoalbumenemia. DVT r/o as B/L LE duplex WNL. Echo LVEF 65% mild left ventricular diastolic dysfunction. Will continue to monitor. (4) Severe protein-calorie malnutrition Current Visit: Yes Status: Acute Assessment and plan: 2nd to malignancy. Dietitian consulted for further evaluation and recommendations. TPN might need to be started, PICC line consult ( was not able to have TPN over the weekend) Continue caridac diet with ensure plus TID. (5) YU (acute kidney injury) Current Visit: Yes Status: Acute Assessment and plan: Resolved. Most likely 2nd to dehydration. (6) Cancer associated pain Current Visit: Yes Status: Acute Assessment and plan: Patient has been started on MS contin and Morphine for breakthrough pain. Continue tramadol. Palliative on board. Appreciate input. (7) Goals of care, counseling/discussion Current Visit: Yes Status: Acute Assessment and plan: Patient has been depressed as her and mother in the past two months. As of now patient states this is alot to take in. Still need to discuss what is plan post discharge: hospice, palliative care? Also awaiting pathology report to guide discussion. Code status [id number] DNI. (8) Hypokalemia Current Visit: Yes Status: Acute Assessment and plan: Repleted. (9) Hyponatremia Current Visit: Yes Status: Acute Assessment and plan: worse, monitor Na (10) Anemia Current Visit: Yes Status: Acute Assessment and plan: most likely 2nd to malignancy. hgb stable Iron panel indicates anemia of chronic disease. B12, folate WNL hem/onc on board. appreciate input. Greater than 35 minutes - Subjective Interval history: Was able to drink some of the bowel prep Complains of abdominal pain 9 out of 10 in intensity. Has less appetite. Denies any chest pain or shortness of breath, the pressure on her abdomen has decreased slightly, denies any fevers, mild nausea. - Constitutional Vitals: Temp Pulse Resp BP Pulse Ox 97.3 F L 85 12 97/65 97 12/02/16 09:16 12/02/16 09:16 12/02/16 09:16 12/02/16 09:16 12/02/16 09:16 General appearance: Present: cachectic, cooperative, A&O X 3, pleasant, underweight Exam: Jaundiced - Head Head exam: Present: atraumatic, normocephalic - Eye Eye exam: Present: PERRL, conjuntiva pink, sclera anicteric Pupils: Present: PERRL - Neck Neck exam general surgery: Present: supple, trachea midline. Absent: lymphadenopathy - Respiratory Respiratory exam: Present: CTAB. Absent: accessory muscle use, rales, rhonchi, wheezes - Cardiovascular Cardiovascular exam: Present: RRR, +S1, +S2. Absent: diastolic murmur, gallop, rubs, systolic murmur - GI/Abdominal GI/Abdominal exam: Present: distended (Tender to touch with multiple masses felt ), normal bowel sounds, soft, no peritoneal signs. Absent: tenderness - Extremities Exam Extremities exam: Present: pedal edema (Severe +3 pitting edema both lower extremities), warm, radial pulses palpable and symetrical. Absent: calf tenderness, cyanotic - Neurological Exam Neurological exam: Present: CN II-XII intact, oriented X3, no focal deficits. Absent: pronater drift, facial droop, speech deficit - Skin Skin exam: Present: dry, intact Internal Medicine: Result - Labs CBC & Chem 7: 12/01/16 08:25 12/01/16 08:25 - ABG Interpretation ABG results: PT/INR, D-dimer PT 14.8 Seconds (9.4-12.1) H 11/26/16 06:14 Consult Discharge Plan - Plan Referrals: Flor Hudson MD [Primary Care Provider] - 12/03/16 1:45 pm () Osorio Ward MD [Partnered Physician] - 12/02/16 10:10 am
[2016-12-02 10:55] LABS: Hematocrit 30.8 % (35.3-44.9); Hemoglobin 10.4 g/dL (11.5-15.4); Mean Corpuscular HGB Conc 33.8 g/dL (31.6-35.5); Mean Corpuscular Hemoglobin 30.4 pg (28.0-33.3); Mean Corpuscular Volume 90.1 fL (83.0-100.0); Mean Platelet Volume 9.8 fL (9.4-12.4); Platelet Count 181 K/mcL (140-400); Red Blood Count 3.42 M/mcL (3.82-4.97); Red Cell Distribution Width 18.6 % (11.5-14.5)
[2016-12-02] MEDS: Pantoprazole 40 MG VIAL IVP SCH (11:07)
[2016-12-02 11:08] LABS: Alanine Aminotransferase 99 Units/L (0-55); Albumin 1.7 g/dL (3.5-5.0); Albumin/Globulin Ratio 0.5 (1.1-2.2); Alkaline Phosphatase 626 Units/L (38-126); Aspartate Amino Transferase 125 Units/L (5-34); BUN/Creatinine Ratio 33 (6-26); Bilirubin,Total 21.9 mg/dL (0.2-1.2); Blood Urea Nitrogen 20 mg/dL (7-20); Calcium 7.5 mg/dL (8.6-10.8); Carbon Dioxide 21 mEq/L (19-29); Chloride 100 mEq/L (98-109); Globulin 3.5 g/dL (2.4-3.5); Glucose 96 mg/dL (70-99); Osmolality,Calculated 270 (280-300); Sodium 129 mEq/L (136-145); Total Protein 5.2 g/dL (6.0-8.3); eGFR For African Americans > 60 (> 60); eGFR For Non-African Americans > 60 (> 60)
[2016-12-02 11:11] LABS: Potassium 3.3 mEq/L (3.5-4.5)
[2016-12-02] MEDS: Ondansetron 4 MG/2 ML VIAL IVP PRN (12:02)
[2016-12-02] MEDS ORDERED: Lidocaine -MPF 1% 5 ML AMPUL INFILT ONE (12:20)
[2016-12-02] MEDS ORDERED: 0.9 % Sodium Chloride 500 ML IVC SCH (12:30)
[2016-12-02] MEDS ORDERED: *HR* Propofol 200 MG/20 ML VIAL IVP ONE (12:35)
--- NOTE | 2016-12-02 12:44 | Anesthesia Evaluation PreOp ---
Date of Encounter: 12/02/16 Time of Encounter: 12:39 - Past History Planned Operation: cscope Cardiac History: Hyperlipidemia, Other (echo last week ef 60, nl rv) Pulmonary History: Denies Any Significant HX [employer] History: Denies Any Significant HX Other Medical History: Diabetes Type II, Other (cancer of unknown primary with mets by CT to liver, lungs, gallbladder) Anesthesia History: No Prior Anesthetic Complications, Past Anesthesia (ercp x2) Alcohol Use: none Drug use: none Medications and Allergies Dicyclomine [Dicyclomine] 20 mg PO Q8H PRN 11/26/16 [History] Furosemide [Lasix] 40 mg PO DAILY 11/26/16 [History] Insulin Glargine,Hum.rec.anlog [Lantus Solostar] 10 unit SQ HS 11/26/16 [History ] Metformin HCl [Metformin HCl ER] 500 mg PO BID 11/26/16 [History] Morphine Sulfate [Morphine Sulfate] 15 mg PO Q4H PRN 11/26/16 [History] Potassium Chloride [Potassium Chloride] 20 meq PO BID 11/26/16 [History] Sennosides/Docusate Sodium [Senna Plus] 1 each PO BID PRN 11/26/16 [History] Simvastatin [Zocor] 20 mg PO DAILY 11/26/16 [History] Spironolact/Hydrochlorothiazid [Aldactazide 25-25 Tablet] 1 each PO BID [History] Allergies ciprofloxacin [From Cipro] Allergy (Verified 11/25/16 19:50) Rash Sulfa (Sulfonamide Antibiotics) Allergy (Verified 11/25/16 19:50) Rash codeine Adverse Reaction (Verified 11/25/16 19:50) Itching - Meds/Allergy Pre-op Review Medications Reviewed: Yes Allergies Reviewed: Yes Beta Blockers on Current Med List: No Anesthesia Results - Labs 12/02/16 10:22 12/02/16 10:22 - Imaging EKG: report reviewed (sr) Anesthesia Exam Vital Signs/O2 Sat/Glucose, Most Current Temp Pulse Resp BP Pulse Ox 12/02/16 12:23 87 12 107/74 97 12/02/16 09:16 97.3 F L 85 12 97/65 97 Blood glucose: 98 (9:16) Height: 1.63 Weight: 46 NPO (# of Hours): >8 - HEENT Pupil (Motor): Pupils equal, EOMI Mallampati: III Teeth: Poor dentition Oral Opening: Greater than 3 - [employer] LOC: Oriented [employer] Motor: Deficit RUE, Deficit LUE, Deficit RLE, Deficit LLE, Deficit Face [employer] Sensory: Deficit: RUE, LUE, RLE, LLE, Face - Cardiac Rhythm: Regular Murmur: None - Pulmonary Breath Sounds: bilateral Clear Respiratory Effort: Symmetrical Anesthesia Assess/Plan ASA Score: 4 Modified Val[place] Scale for Level of Consciousness: Cooperative, oriented, and tranquil Anesthetic Plan: MAC Monitoring Plan: Standard Monitors Recovery Plan: Other
--- NOTE | 2016-12-02 14:45 | Anesthesia Evaluation Post Op ---
Date of Encounter: 12/02/16 Time of Encounter: 13:55 - Vital Signs Vital Signs: Vital Signs/O2 Sat, Most Current Temp Pulse Resp BP Pulse Ox 97.3 F L 93 16 95/64 100 12/02/16 14:03 12/02/16 14:03 12/02/16 14:03 12/02/16 14:03 12/02/16 14:03 - Lungs Lungs: Clear Ascult./Percussion - Airway Airway: Non-obstructed - Cardiovascular Regular Rate - Mental Status Mental Status: Alert & Oriented, Answers Appropriately - Pain Pain Scale: 0 Pain Scale used: Numeric (1 - 10) - Nausea Vomiting Nausea Vomiting: Not Present - Hydration Hydration: NPO, Has not voided - Discharge PostOp Status: Transfer Patient to floor
--- NOTE | 2016-12-02 15:44 | Event Note ---
Date of Encounter: 12/02/16 Time of Encounter: 15:30 Patient recently back from colonoscopy. Sleeping, I awakened her and she asked me to let her sleep. Denied pain at present. No family present. Colonscopy report noted - colon still with stool. Will f/u in am.
--- NOTE | 2016-12-02 20:35 | Procedure Note ---
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 Colonoscopy: Colon full of stool throughout up to the cecum. Recommendation: Need clear liquid for 2 days with a 2 day prep
[2016-12-02] MEDS: Mirtazapine 15 MG TABLET PO SCH (20:53)
[2016-12-03] MEDS: *HR* Enoxaparin 40 MG/0.4 ML SYRINGE SQ SCH (05:46)
[2016-12-03] MEDS: *HR* Morphine Sulfate SR (12 HR) 15 MG TABLET.ER PO SCH ×2 (05:46→17:08)
[2016-12-03] MEDS: D5% in 0.9% NACL 1,000 ML IVC SCH (05:47)
[2016-12-03 06:16] LABS: Hematocrit 28.3 % (35.3-44.9); Hemoglobin 9.7 g/dL (11.5-15.4); Mean Corpuscular HGB Conc 34.3 g/dL (31.6-35.5); Mean Corpuscular Hemoglobin 30.6 pg (28.0-33.3); Mean Corpuscular Volume 89.3 fL (83.0-100.0); Mean Platelet Volume 9.9 fL (9.4-12.4); Platelet Count 199 K/mcL (140-400); Red Blood Count 3.17 M/mcL (3.82-4.97); Red Cell Distribution Width 18.6 % (11.5-14.5)
[2016-12-03 06:33] LABS: Alanine Aminotransferase 81 Units/L (0-55); Albumin/Globulin Ratio 0.5 (1.1-2.2); Alkaline Phosphatase 544 Units/L (38-126); Aspartate Amino Transferase 83 Units/L (5-34); BUN/Creatinine Ratio 27 (6-26); Bilirubin,Total 20.6 mg/dL (0.2-1.2); Blood Urea Nitrogen 14 mg/dL (7-20); Calcium 7.3 mg/dL (8.6-10.8); Carbon Dioxide 18 mEq/L (19-29); Chloride 103 mEq/L (98-109); Globulin 3.2 g/dL (2.4-3.5); Glucose 80 mg/dL (70-99); Magnesium 0.9 mg/dL (1.6-2.6); Osmolality,Calculated 271 (280-300); Potassium 3.4 mEq/L (3.5-4.5); Total Protein 4.7 g/dL (6.0-8.3); eGFR For African Americans > 60 (> 60); eGFR For Non-African Americans > 60 (> 60)
[2016-12-03 06:34] LABS: Albumin 1.5 g/dL (3.5-5.0); Sodium 131 mEq/L (136-145); Triglycerides 213 mg/dL (< 150)
[2016-12-03] MEDS ORDERED: Magnesium Sulfate 2 GM in D5% in Water 100 ML IVPB ONE ×2 (08:56→15:28)
[2016-12-03] MEDS: *HR* Morphine Immed Rel 30 MG TABLET PO PRN (09:04)
[2016-12-03] MEDS: Pantoprazole 40 MG VIAL IVP SCH (09:05)
[2016-12-03] MEDS: Ringers Solution, Lactated 1,000 ML IVC SCH (09:48)
--- NOTE | 2016-12-03 10:12 | Internal Med Progress Note ---
<Yeuhda Denton - Last Filed: 12/03/16 10:12> Date of Encounter: 12/03/16 Time of Encounter: 09:20 - Constitutional Vitals: Temp Pulse Resp BP Pulse Ox 97.8 F 98 16 96/62 95 12/03/16 08:38 12/03/16 08:38 12/03/16 08:38 12/03/16 08:38 12/03/16 08:38 General appearance: Present: cachectic, cooperative, A&O X 3, pleasant, underweight Internal Medicine: Result - Labs CBC & Chem 7: 12/03/16 05:45 12/03/16 05:45 Labs: Short CBC 12/02/16 12/03/16 Range/Units 10:22 05:45 WBC 12.6 H 14.0 H (4.3-11.1) K/mcL Hgb 10.4 L 9.7 L (11.5-15.4) g/dL Hct 30.8 L 28.3 L (35.3-44.9) % Plt Count 181 199 (140-400) K/mcL BMP 12/02/16 12/03/16 10:22 05:45 Sodium 129 L 131 L Potassium 3.3 L D 3.4 L Chloride 100 103 Carbon Dioxide 21 18 L BUN 20 14 Creatinine 0.60 0.52 L Glucose 96 80 Calcium 7.5 L 7.3 L Liver Function 12/02/16 12/03/16 Range/Units 10:22 05:45 Total Bilirubin 21.9 H 20.6 H (0.2-1.2) mg/dL AST 125 H 83 H (5-34) Units/L ALT 99 H 81 H (0-55) Units/L Alkaline Phosphatase 626 H 544 H (38-126) Units/L Albumin 1.7 L 1.5 L (3.5-5.0) g/dL - ABG Interpretation ABG results: PT/INR, D-dimer PT 14.8 Seconds (9.4-12.1) H 11/26/16 06:14 Consult Discharge Plan - Plan Referrals: Flor Hudson MD [Primary Care Provider] - (Office of Dr Hudson called and let staff know that patient will seen oncologist from here on... ) Osorio Ward MD [Partnered Physician] - (oncology will schedule once we figure out when patient will be discharged) <Nagi Mancuso P - Last Filed: 12/09/16 19:25> - Assessment and plan (1) Metastatic cancer Current Visit: Yes Status: Acute (2) Hypoxemia Current Visit: Yes Status: Acute (3) Cancer associated pain Current Visit: Yes Status: Acute (4) Jaundice Current Visit: Yes Status: Acute - Constitutional Vitals: Temp Pulse Resp BP Pulse Ox 97.4 F L 86 23 90/53 88 L 12/09/16 18:47 12/09/16 18:47 12/09/16 18:47 12/09/16 18:47 12/09/16 18:47 Internal Medicine: Result - Labs CBC & Chem 7: 12/09/16 03:48 12/09/16 03:51 Labs: Short CBC 12/09/16 Range/Units 03:48 WBC 23.5 H (4.3-11.1) K/mcL Hgb 9.1 L (11.5-15.4) g/dL Hct 26.9 L (35.3-44.9) % Plt Count 159 (140-400) K/mcL Neutrophils # 21.6 H (1.6-8.9) K/mcL BMP 12/09/16 03:51 Sodium 128 L Potassium 3.9 D Chloride 97 L Carbon Dioxide 25 BUN 21 H Creatinine 0.50 L Glucose 195 H Calcium 7.9 L Liver Function 12/09/16 Range/Units 03:51 Total Bilirubin 9.6 H (0.2-1.2) mg/dL AST 65 H (5-34) Units/L ALT 44 (0-55) Units/L Alkaline Phosphatase 416 H (38-126) Units/L Albumin 1.1 L (3.5-5.0) g/dL - ABG Interpretation ABG results: PT/INR, D-dimer PT 14.0 Seconds (9.4-12.1) H 12/05/16 06:25 - Attending Attestation I examined this patient and my medical decision-making was reviewed with the MARBLE MASON/PA/Advanced Practice Nurse/Resident Physician. I agree with the documented findings, disposition and treatment plan as described except to the extent set forth below. please seenote from same day this isno a bllable note
[2016-12-03] MEDS ORDERED: Dextrose Gel 15 GM PO PRN ×2 (10:27)
[2016-12-03] MEDS ORDERED: D5% in Water 1,000 ML IV PRN (10:27)
[2016-12-03] MEDS ORDERED: *HR* Dextrose 50 % in Water (Syg) 50 ML SYRINGE IVP PRN (10:27)
[2016-12-03] MEDS ORDERED: Potassium Phosphate 44 MEQ in 0.9 % Sodium Chloride 250 ML IVPB ONE (10:29)
[2016-12-03] MEDS: Insulin LISPRO 300 UNITS/3 ML VIAL SQ SCH ×3 (11:35→18:52)
[2016-12-03] MEDS ORDERED: D10% in Water 500 ML IV PRN (11:45)
[2016-12-03] MEDS: *HR* Morphine 2 MG/ML SYRINGE IVP PRN (14:16)
--- NOTE | 2016-12-03 14:24 | Palliative Progress Note ---
Date of Encounter: 12/03/16 Time of Encounter: 14:20 - Assessment and plan (1) Cancer associated pain Current Visit: Yes Status: Acute Assessment and plan: Patient states pain is not controlled well at this time - however, she has had several doses of MS Contin held over the last several days r/t NPO status and testing and has not utilized much breakthrough pain medication. Re-educated her on breakthrough medication and to ask for this when she is uncomfortable. I am not comfortable increasing long acting medication further until she is taking on a consistent basis and utilizing more for breakthrough pain. (2) Nausea Current Visit: Yes Status: Acute Assessment and plan: Continue Zofran PRN (3) Diarrhea Current Visit: Yes Status: Acute Qualifiers: Diarrhea type: unspecified type Qualified Code(s): R19.7 - Diarrhea, unspecified (4) Depression Current Visit: Yes Status: Acute Assessment and plan: Continue Remeron for appetite and depression. Qualifiers: Depression Type: unspecified Qualified Code(s): F32.9 - Major depressive disorder, single episode, unspecified (5) Goals of care, counseling/discussion Current Visit: Yes Status: Acute Assessment and plan: Long discussion with pt, daughter Padmini and jaime Augustin. Patient did agree to complete medical POA and appointed Padmini as primary decision maker, Charli as 1st alternate, and jaime Barth as 2nd alternate. Completed state DNR form as DNRCC-Arrest/DNI which is current status. Discussed D/C plan - she may need ongoing TPN for nutritional support for a while and therapy. She is still VERY reluctant to have anyone in her home and is refusing halfway facility. We discussed the possibility of swing bed for rehab at [place] - this would be families first choice, and pt stated she would consider "when the time comes". Will continue to follow. (6) Metastatic cancer Current Visit: Yes Status: Acute - Time Spent With Patient Total time spent is greater than 50% in coordination of care (as documented) at patient's floor/unit and/or counseling patient: 25 - 35 minutes - Subjective Interval history: Patient awake and alert. Daughter Padmini and ILIANA Augustin at bedside. Patient c/o RUQ pain after getting back from bathroom. Remains on clear liquid r/t possible colonoscopy tomorrow. TPN scheduled to begin this afternoon. - Constitutional Vitals: Abnormal lab results WBC 14.0 K/mcL (4.3-11.1) H 12/03/16 05:45 RBC 3.17 M/mcL (3.82-4.97) L 12/03/16 05:45 Hgb 9.7 g/dL (11.5-15.4) L 12/03/16 05:45 Hct 28.3 % (35.3-44.9) L 12/03/16 05:45 RDW 18.6 % (11.5-14.5) H 12/03/16 05:45 Hypochromasia Present (Not Present) A 11/29/16 03:43 Anisocytosis 1+ (Not Present) A 11/29/16 03:43 Immature Retic Fraction 5.1 % (11.0-38.0) L 11/26/16 23:17 Retic Hgb Equivalent 39.3 pg (28.61-36.33) H 11/26/16 23:17 PT 14.8 Seconds (9.4-12.1) H 11/26/16 06:14 APTT 22.1 Seconds (26.0-36.0) L 11/26/16 06:14 Sodium 131 mEq/L (136-145) L 12/03/16 05:45 Potassium 3.4 mEq/L (3.5-4.5) L 12/03/16 05:45 Carbon Dioxide 18 mEq/L (19-29) L 12/03/16 05:45 Creatinine 0.52 mg/dL (0.57-1.11) L 12/03/16 05:45 BUN/Creatinine Ratio 27 (6-26) H 12/03/16 05:45 POC Glucose 98 (58-89) H 12/02/16 09:20 Calculated Osmolality 271 (280-300) L 12/03/16 05:45 Calcium 7.3 mg/dL (8.6-10.8) L 12/03/16 05:45 Phosphorus 2.0 mg/dL (2.3-4.7) L 12/03/16 05:45 Magnesium 0.9 mg/dL (1.6-2.6) L 12/03/16 05:45 Transferrin 140 mg/dL (180-382) L 02/28/17 23:17 Ferritin 2691 ng/ml (5-204) H 11/26/16 23:17 Total Bilirubin 20.6 mg/dL (0.2-1.2) H 12/03/16 05:45 Direct Bilirubin 14.1 mg/dL (0.0-0.5) H 11/30/16 06:58 Indirect Bilirubin 4.5 mg/dL (0.0-1.2) H 11/30/16 06:58 AST 83 Units/L (5-34) H 12/03/16 05:45 ALT 81 Units/L (0-55) H 12/03/16 05:45 Alkaline Phosphatase 544 Units/L (38-126) H 12/03/16 05:45 Lactate Dehydrogenase 1622 Units/L (159-327) H 11/26/16 23:17 Serum Total Protein 4.7 g/dL (6.0-8.3) L 12/03/16 05:45 Albumin 1.5 g/dL (3.5-5.0) L 12/03/16 05:45 Albumin (PEP) 3.50 g/dL (3.75-5.01) L 11/26/16 23:17 Albumin/Globulin Ratio 0.5 (1.1-2.2) L 12/03/16 05:45 Prealbumin 5.0 mg/dL (16.0-38.0) L 12/03/16 05:45 Triglycerides 213 mg/dL (< 150) H 12/03/16 05:45 Carcinoembryonic Ag 1906.4 ng/mL (0-5.0) H 11/26/16 23:17 CA 19-9 Antigen 147343 U/mL (0-37) H 11/26/16 23:17 Vitamin B12 > 2000 pg/mL (213-816) H 11/26/16 23:17 Urine Color Jerome (Yellow) A 11/29/16 12:30 Urine Clarity Cloudy (Clear) A 11/29/16 12:30 Urine Protein 30 mg/dL (Neg-Trace) H 11/29/16 12:30 Urine Ketones Trace mg/dL (Negative) H 11/29/16 12:30 Urine Bilirubin Large (Negative) H 11/29/16 12:30 Ur Leukocyte Esterase Large (Negative) H 11/29/16 12:30 Urine Microscopic RBC 3-5 per hpf (0-3) H 11/29/16 12:30 Urine Microscopic WBC 50-100 per hpf (0-3) H 11/29/16 12:30 Ur Squamous Epith Cells Many per lpf (None-Few) H 11/29/16 12:30 General appearance: Present: no acute distress - Respiratory Respiratory exam: Present: decreased breath sounds, CTAB - Cardiovascular Cardiovascular exam: Present: +S1, +S2 - GI/Abdominal GI/Abdominal exam: Present: normal bowel sounds, tenderness - Extremities Exam Additional comments: 3+ bilateral lower extremity edema - Neurological Exam Neurological exam: Present: alert, oriented X3, strengths equal and symetr throughout - Skin Skin exam: Present: dry, warm Additional comments: Jaundiced Palliative Quality Palliative Quality: Screen for Code Status: NA (discuss later), Screen for Goals of Care: NA (awaiting biopsy), Screen for Pain: Yes, If Pain Regimen Started, Initiate Bowel Regimen: NA (diarrhea), Screen for Nausea/Vomitting: Yes Code Status: 11/27/16 11:52 CODE [Resuscitation Status: Active] [RES] Routine Comment: Resuscitation Status: [id number] - Labs CBC & Chem 7: 12/03/16 05:45 12/03/16 05:45 Labs: Laboratory Results - last 24 hr 12/03/16 12/03/16 12/03/16 05:45 05:45 05:45 WBC 14.0 H RBC 3.17 L Hgb 9.7 L Hct 28.3 L MCV 89.3 MCH 30.6 MCHC 34.3 RDW 18.6 H Plt Count 199 MPV 9.9 Sodium 131 L Potassium 3.4 L Chloride 103 Carbon Dioxide 18 L BUN 14 Creatinine 0.52 L Est GFR ( Amer) > 60 Est GFR (Non-Af Amer) > 60 BUN/Creatinine Ratio 27 H Glucose 80 Calculated Osmolality 271 L Calcium 7.3 L Phosphorus 2.0 L Magnesium 0.9 L Total Bilirubin 20.6 H AST 83 H ALT 81 H Alkaline Phosphatase 544 H Serum Total Protein 4.7 L Albumin 1.5 L Globulin 3.2 Albumin/Globulin Ratio 0.5 L Prealbumin 5.0 L Triglycerides 213 H - ABG Interpretation ABG results: PT/INR, D-dimer PT 14.8 Seconds (9.4-12.1) H 11/26/16 06:14 Consult Discharge Plan - Plan Referrals: Flor Hudson MD [Primary Care Provider] - (Office of Dr Hudson called and let staff know that patient will seen oncologist from here on... ) Osorio Ward MD [Partnered Physician] - (oncology will schedule once we figure out when patient will be discharged)
--- NOTE | 2016-12-03 16:22 | Internal Med Progress Note ---
Addendum entered and electronically signed by Yehuda Denton DO 16:44: In addition to the below A/P Severe protein caloric malnutrition: We will start on TPN today. Muscular Deconditioning: PT/OT Barriers to discharge: Patient wishes to go home with out any assistance. May be agreeable to swing bed. 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 she will follow up with oncology as outpatient (2) Cancer associated pain Current Visit: Yes Status: Acute Assessment and plan: palliative covering OK to have pain medications while NPO (3) Jaundice Current Visit: Yes Status: Acute (4) Leukocytosis Current Visit: Yes Status: Acute Assessment and plan: Likely secondary to revent procedure Afebrile. Continue to trend Qualifiers: Qualified Code(s): D72.829 - Elevated white blood cell count, unspecified (5) Anemia Current Visit: Yes Status: Acute Assessment and plan: No active bleeding. likely related to malignancy Vit B12, folate, and Ferritin normal/ elevated continue to follow. Qualifiers: Qualified Code(s): D64.9 - Anemia, unspecified (6) Hyponatremia Current Visit: Yes Status: Acute Assessment and plan: mild likely nutritional continue IV fluids continue to follow. (7) Hypomagnesemia Current Visit: Yes Status: Acute Assessment and plan: replete (8) Hyperbilirubinemia Current Visit: Yes Status: Acute Assessment and plan: S/P ERCP/Stent (9) Transaminitis Current Visit: Yes Status: Acute Assessment and plan: likely from obstruction and mets (10) DVT prophylaxis Current Visit: Yes Status: Acute Assessment and plan: on lovenox - Subjective Interval history: No major events over night. Patient states that she is having more pain today because her pills are being held for the colonoscopy. She denies any chest pain or dypnea. She admits to gernalized fatigue and feeling weak. she denies any N/V. She has no further complaints or concerns at this time - Constitutional Vitals: Temp Pulse Resp BP Pulse Ox 98.0 F 91 18 92/58 95 12/03/16 16:15 12/03/16 16:15 12/03/16 16:15 12/03/16 16:15 12/03/16 16:15 Exam: General: This is a 66-year-old female who is very pleasant. She does appear to be frail, cachectic, older than her stated age. Lying in bed appears to be comfortable no acute distress at this time. HEENT: Head is normocephalic and atraumatic. There is scleral icterus present. Moist mucous membranes. Neck supple without mass or thyromegaly. Heart: Regular rate and rhythm without murmurs rubs or gallops. Lungs: Clear to auscultation bilaterally. Abdomen: Soft, mild distention, mild tenderness to palpation diffusely. No guarding or rebound. Musculoskeletal: She does have some diffuse muscle atrophy throughout. No deformities noted. Extremities: There is no clubbing or cyanosis. She does have a 3+ pitting edema of the lower extremities up to the level with thigh bilaterally. Integument: She is jaundice, no rashes or lesions noted. Internal Medicine: Result - Labs CBC & Chem 7: 12/03/16 05:45 12/03/16 05:45 Labs: Short CBC 12/03/16 Range/Units 05:45 WBC 14.0 H (4.3-11.1) K/mcL Hgb 9.7 L (11.5-15.4) g/dL Hct 28.3 L (35.3-44.9) % Plt Count 199 (140-400) K/mcL BMP 12/03/16 05:45 Sodium 131 L Potassium 3.4 L Chloride 103 Carbon Dioxide 18 L BUN 14 Creatinine 0.52 L Glucose 80 Calcium 7.3 L Liver Function 12/03/16 Range/Units 05:45 Total Bilirubin 20.6 H (0.2-1.2) mg/dL AST 83 H (5-34) Units/L ALT 81 H (0-55) Units/L Alkaline Phosphatase 544 H (38-126) Units/L Albumin 1.5 L (3.5-5.0) g/dL - ABG Interpretation ABG results: PT/INR, D-dimer PT 14.8 Seconds (9.4-12.1) H 11/26/16 06:14 Consult Discharge Plan - Plan Referrals: Flor Hudson MD [Primary Care Provider] - (Office of Dr Hudson called and let staff know that patient will seen oncologist from here on... ) Osorio Ward MD [Partnered Physician] - (oncology will schedule once we figure out when patient will be discharged) <Nagi Mancuso P - Last Filed: 12/03/16 18:30> - Constitutional Vitals: Temp Pulse Resp BP Pulse Ox 98.0 F 91 18 92/58 95 12/03/16 16:15 12/03/16 16:15 12/03/16 16:15 12/03/16 16:15 12/03/16 16:15 Internal Medicine: Result - Labs CBC & Chem 7: 12/03/16 05:45 12/03/16 05:45 Labs: Short CBC 12/03/16 Range/Units 05:45 WBC 14.0 H (4.3-11.1) K/mcL Hgb 9.7 L (11.5-15.4) g/dL Hct 28.3 L (35.3-44.9) % Plt Count 199 (140-400) K/mcL BMP 12/03/16 05:45 Sodium 131 L Potassium 3.4 L Chloride 103 Carbon Dioxide 18 L BUN 14 Creatinine 0.52 L Glucose 80 Calcium 7.3 L Liver Function 12/03/16 Range/Units 05:45 Total Bilirubin 20.6 H (0.2-1.2) mg/dL AST 83 H (5-34) Units/L ALT 81 H (0-55) Units/L Alkaline Phosphatase 544 H (38-126) Units/L Albumin 1.5 L (3.5-5.0) g/dL - ABG Interpretation ABG results: PT/INR, D-dimer PT 14.8 Seconds (9.4-12.1) H 11/26/16 06:14 - Attending Attestation I examined this patient and my medical decision-making was reviewed with the AMBULANCE PARAMEDIC/PA/Advanced Practice Nurse/Resident Physician. I agree with the documented findings, disposition and treatment plan as described except to the extent set forth below.
[2016-12-03] MEDS ORDERED: Clinimix E 5%-15% SOLUTION 2,000 ML with MVI, adult with vitamin K 10 ML IV SCH ×2 (17:00→17:15)
[2016-12-04] MEDS: Mirtazapine 15 MG TABLET PO SCH ×2 (02:29→22:35)
[2016-12-04] MEDS: Insulin LISPRO 300 UNITS/3 ML VIAL SQ SCH ×7 (02:30→23:48)
[2016-12-04] MEDS: *HR* Morphine Sulfate SR (12 HR) 15 MG TABLET.ER PO SCH ×2 (06:24→18:07)
[2016-12-04] MEDS: *HR* Enoxaparin 40 MG/0.4 ML SYRINGE SQ SCH (06:24)
[2016-12-04 07:28] LABS: Basophils % 0.1 %; Eosinophils % 0.3 %; Hematocrit 26.2 % (35.3-44.9); Immature Granulocytes % 1.5 % (0-4); Lymphocytes # 0.6 K/mcL (0.6-4.6); Lymphocytes % 4.4 %; Mean Corpuscular HGB Conc 34.4 g/dL (31.6-35.5); Mean Corpuscular Hemoglobin 31.1 pg (28.0-33.3); Mean Corpuscular Volume 90.7 fL (83.0-100.0); Mean Platelet Volume 10.1 fL (9.4-12.4); Monocytes # 1.3 K/mcL (0.0-1.3); Monocytes % 8.8 %; Neutrophils # 12.1 K/mcL (1.6-8.9); Platelet Count 185 K/mcL (140-400); Red Blood Count 2.89 M/mcL (3.82-4.97); Red Cell Distribution Width 18.8 % (11.5-14.5); Segmented Neutrophils % 84.9 %
[2016-12-04 07:35] LABS: BUN/Creatinine Ratio 24 (6-26); Blood Urea Nitrogen 12 mg/dL (7-20); Carbon Dioxide 20 mEq/L (19-29); Chloride 104 mEq/L (98-109); Glucose 112 mg/dL (70-99); Magnesium 1.2 mg/dL (1.6-2.6); Osmolality,Calculated 275 (280-300); Phosphorous 2.2 mg/dL (2.3-4.7); Potassium 3.4 mEq/L (3.5-4.5); eGFR For African Americans > 60 (> 60); eGFR For Non-African Americans > 60 (> 60)
[2016-12-04 07:39] LABS: Ionized Calcium 1.09 mmol/L (1.15-1.35)
[2016-12-04 07:55] LABS: Sodium 132 mEq/L (136-145)
[2016-12-04] MEDS: Ringers Solution, Lactated 1,000 ML IVC SCH (09:08)
[2016-12-04] MEDS: Pantoprazole 40 MG VIAL IVP SCH (09:09)
[2016-12-04] MEDS ORDERED: Magnesium Sulfate 2 GM in D5% in Water 100 ML IVPB ONE ×3 (09:11→14:45)
[2016-12-04] MEDS: *HR* Morphine 2 MG/ML SYRINGE IVP PRN ×2 (10:52→23:34)
[2016-12-04] MEDS ORDERED: Calcium Gluconate 1,000 MG in D5% in Water 100 ML IVPB ONE (13:59)
[2016-12-04] MEDS ORDERED: Potassium Chloride 40 MEQ/200 ML BAG IVPB ONE (14:15)
--- NOTE | 2016-12-04 14:58 | Event Note ---
Date of Encounter: 12/04/16 Time of Encounter: 14:30 Upon visiting pt today, she became upset and asked me to leave. Stated she had been continuously bothered and "just got settled". Stated "I dont want to talk to you right now - please let me be". Did ask primary nurse to bring her pain med as requested. Have attempted to reach pt family today, have left messages but have not received a return call. Attempting to arrange meeting with social work, pt and family for d/c plan. Patient is very weak, had fall last night, and needs assistance getting out of bed. PT/OT consult, hoping she will be agreeable to participate. Patient has been very resistant to discuss any type of nursing care upon discharge.
--- NOTE | 2016-12-04 15:10 | Internal Med Progress Note ---
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 she will follow up with oncology as outpatient (2) Cancer associated pain Current Visit: Yes Status: Acute Assessment and plan: palliative covering OK to have pain medications while NPO (3) Jaundice Current Visit: Yes Status: Acute (4) Leukocytosis Current Visit: Yes Status: Acute Assessment and plan: Likely secondary to recent procedure Afebrile. However she is complaining of cough and some mild dyspnea. We will check a chest x-ray to rule out pneumonia. Continue to trend (5) Anemia Current Visit: Yes Status: Acute Assessment and plan: No active bleeding. likely related to malignancy Vit B12, folate, and Ferritin normal/ elevated continue to follow. (6) Hyponatremia Current Visit: Yes Status: Acute Assessment and plan: mild Trending up likely nutritional continue IV fluids continue to follow. (7) Hypomagnesemia Current Visit: Yes Status: Acute Assessment and plan: replete (8) Hyperbilirubinemia Current Visit: Yes Status: Acute Assessment and plan: S/P ERCP/Stent Repeat bilirubin in the morning (9) Transaminitis Current Visit: Yes Status: Acute Assessment and plan: likely from obstruction and mets (10) Edema Current Visit: Yes Status: Acute Assessment and plan: She has had ultrasounds of the lower extremities negative for DVT. Most likely is secondary to IV fluids as well as nutritional deficits. We will continue to work on her nutrition status. She has been started on TPN. Lungs do not seem to be fluid overloaded on exam. And getting a chest x-ray to rule out pneumonia we will be able to see if she has any pulmonary edema that time. May consider some Lasix after we get her nutrition under control. (11) Hepatosplenomegaly Current Visit: Yes Status: Acute (12) DVT prophylaxis Current Visit: Yes Status: Acute Assessment and plan: on lovenox - Subjective Interval history: No major events overnight. Patient does admit to continued pain in the abdomen. She states that her pain is not controlled at this time. She does not admit to any nausea or vomit has any chest pain or dyspnea. She denies any bowel movements overnight. She denies any fever or chills. He does admit to anxiety over her current medical issues. She denies any further complaints or concerns at this time. - Constitutional Vitals: Temp Pulse Resp BP Pulse Ox 97.5 F L 85 13 92/61 92 L 12/04/16 11:49 12/04/16 11:49 12/04/16 11:49 12/04/16 11:49 12/04/16 11:49 Exam: General: This is a 66-year-old female who is thin and cachectic appearing. Appears to have diffuse muscle atrophy. She is quite thin. Appears to be older than her stated age. She is strikingly jaundiced. She is lying in bed appears to be comfortable and in no acute distress at this time. Head: There is no cephalic and atraumatic. HEENT: pupils are equally round and react to light and accommodation. She does have scleral icterus. Moist mucous membranes. The neck is supple without mass or thyromegaly. No cervical submandibular supraclavicular lymphadenopathy palpable on exam. Heart: Heart has a regular rate and rhythm without murmurs rubs or gallops. Lungs: Clear to auscultation bilaterally. Normal effort of breathing. Abdomen: The abdomen is distended, tenderness to palpation over the right upper quadrant. She does have obvious in market hepatomegaly as well as splenomegaly. The liver is easily palpated and the edges easily defined. No guarding or rebound throughout the entirety of the exam. Musculoskeletal: She does have some diffuse mild muscular atrophy. No gross deformity noted. Extremities: There is no clubbing, cyanosis. She does have 3+ pitting edema up to the level of the knee bilaterally. Not much change from yesterday's exam. Integument: Markedly jaundiced. No telangiectasias or erythema of the palms. No rashes or lesions noted. Internal Medicine: Result - Labs CBC & Chem 7: 12/04/16 06:15 12/04/16 06:15 Labs: Short CBC 12/04/16 Range/Units 06:15 WBC 14.3 H (4.3-11.1) K/mcL Hgb 9.0 L (11.5-15.4) g/dL Hct 26.2 L (35.3-44.9) % Plt Count 185 (140-400) K/mcL Neutrophils # 12.1 H (1.6-8.9) K/mcL BMP 12/04/16 06:15 Sodium 132 L Potassium 3.4 L Chloride 104 Carbon Dioxide 20 BUN 12 Creatinine 0.50 L Glucose 112 H Calcium 7.0 L - ABG Interpretation ABG results: PT/INR, D-dimer PT 14.8 Seconds (9.4-12.1) H 11/26/16 06:14 Consult Discharge Plan - Plan Referrals: Flor Hudson MD [Primary Care Provider] - (Office of Dr Hudson called and let staff know that patient will seen oncologist from here on... ) Osorio Ward MD [Partnered Physician] - (oncology will schedule once we figure out when patient will be discharged) <Nagi Mnacuso P - Last Filed: 12/04/16 18:41> - Constitutional Vitals: Temp Pulse Resp BP Pulse Ox 97.3 F L 91 15 84/39 87 L 12/04/16 15:00 12/04/16 15:00 12/04/16 15:00 12/04/16 15:00 12/04/16 15:00 Internal Medicine: Result - Labs CBC & Chem 7: 12/04/16 06:15 12/04/16 06:15 Labs: Short CBC 12/04/16 Range/Units 06:15 WBC 14.3 H (4.3-11.1) K/mcL Hgb 9.0 L (11.5-15.4) g/dL Hct 26.2 L (35.3-44.9) % Plt Count 185 (140-400) K/mcL Neutrophils # 12.1 H (1.6-8.9) K/mcL [facility] 12/04/16 06:15 Sodium 132 L Potassium 3.4 L Chloride 104 Carbon Dioxide 20 BUN 12 Creatinine 0.50 L Glucose 112 H Calcium 7.0 L - ABG Interpretation ABG results: PT/INR, D-dimer PT 14.8 Seconds (9.4-12.1) H 11/26/16 06:14 - Attending Attestation I examined this patient and my medical decision-making was reviewed with the LICENSED CLINICIAN/PA/Advanced Practice Nurse/Resident Physician. I agree with the documented findings, disposition and treatment plan as described except to the extent set forth below.
[2016-12-04] MEDS: Potassium Chloride 40 MEQ/200 ML BAG IVPB ONE (15:43)
[2016-12-04] MEDS: Sodium Phosphate 30 MMOL in D5% in Water 100 ML IVPB ONE ×2 (15:44→22:33)
[2016-12-04] MEDS ORDERED: Clinimix E 5%-15% SOLUTION 2,000 ML with MVI, adult with vitamin K 10 ML IV SCH ×2 (17:00)
[2016-12-04] MEDS ORDERED: SODIUM CHLORIDE/NAHCO3/KCL/PEG 4,000 ML SOLN.RECON PO ONE (17:00)
[2016-12-04] MEDS: Melatonin 3 MG TABLET PO SCH (22:35)
[2016-12-05] MEDS: *HR* Morphine 2 MG/ML SYRINGE IVP PRN ×2 (03:25→06:14)
[2016-12-05] MEDS: Insulin LISPRO 300 UNITS/3 ML VIAL SQ SCH ×6 (03:28→22:36)
[2016-12-05] MEDS: *HR* Enoxaparin 40 MG/0.4 ML SYRINGE SQ SCH (06:14)
[2016-12-05] MEDS: *HR* Morphine Sulfate SR (12 HR) 15 MG TABLET.ER PO SCH ×2 (06:15→17:41)
[2016-12-05 06:46] LABS: Basophils % 0.1 %; Eosinophils # 0.1 K/mcL (0.0-0.6); Eosinophils % 0.4 %; Hematocrit 29.7 % (35.3-44.9); Hemoglobin 10.2 g/dL (11.5-15.4); Immature Granulocytes % 3.2 % (0-4); Lymphocytes # 0.5 K/mcL (0.6-4.6); Lymphocytes % 3.3 %; Mean Corpuscular HGB Conc 34.3 g/dL (31.6-35.5); Mean Corpuscular Hemoglobin 31.5 pg (28.0-33.3); Mean Platelet Volume 9.8 fL (9.4-12.4); Monocytes # 1.1 K/mcL (0.0-1.3); Monocytes % 7.9 %; Platelet Count 197 K/mcL (140-400); Red Blood Count 3.24 M/mcL (3.82-4.97); Red Cell Distribution Width 18.6 % (11.5-14.5); Segmented Neutrophils % 85.1 %
[2016-12-05 06:48] LABS: Mean Corpuscular Volume 91.7 fL (83.0-100.0)
[2016-12-05 07:01] LABS: INR 1.3
[2016-12-05 07:02] LABS: Bilirubin,Indirect 3.5 mg/dL (0.0-1.2); Bilirubin,Total 15.1 mg/dL (0.2-1.2)
[2016-12-05 07:03] LABS: Alanine Aminotransferase 52 Units/L (0-55); Albumin/Globulin Ratio 0.4 (1.1-2.2); Alkaline Phosphatase 431 Units/L (38-126); Aspartate Amino Transferase 46 Units/L (5-34); BUN/Creatinine Ratio 23 (6-26); Bilirubin,Total 15.1 mg/dL (0.2-1.2); Blood Urea Nitrogen 11 mg/dL (7-20); Calcium 7.1 mg/dL (8.6-10.8); Carbon Dioxide 21 mEq/L (19-29); Chloride 100 mEq/L (98-109); Globulin 3.3 g/dL (2.4-3.5); Glucose 142 mg/dL (70-99); Osmolality,Calculated 272 (280-300); eGFR For African Americans > 60 (> 60); eGFR For Non-African Americans > 60 (> 60)
[2016-12-05 07:04] LABS: Albumin 1.2 g/dL (3.5-5.0); Potassium 2.6 mEq/L (3.5-4.5); Sodium 130 mEq/L (136-145); Total Protein 4.5 g/dL (6.0-8.3)
[2016-12-05 07:05] LABS: Bilirubin,Direct 11.6 mg/dL (0.0-0.5)
[2016-12-05 07:29] LABS: Magnesium 1.2 mg/dL (1.6-2.6); Phosphorous 2.5 mg/dL (2.3-4.7)
[2016-12-05] MEDS ORDERED: Potassium Chloride 40 MEQ/200 ML BAG IVPB ONE ×3 (08:07→17:18)
[2016-12-05] MEDS ORDERED: Magnesium Sulfate 2 GM in D5% in Water 100 ML IVPB ONE ×2 (08:09→17:18)
[2016-12-05] MEDS ORDERED: *HR* Morphine Sulfate SR (12 HR) 30 MG TABLET.ER PO ONE (08:45)
[2016-12-05] MEDS: Pantoprazole 40 MG VIAL IVP SCH (09:30)
[2016-12-05] MEDS ORDERED: Calcium Gluconate 1,000 MG in D5% in Water 100 ML IVPB ONE (11:18)
--- NOTE | 2016-12-05 11:52 | Internal Med Progress Note ---
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 she will follow up with oncology as outpatient (2) HAP (hospital-acquired pneumonia) Current Visit: Yes Status: Acute Assessment and plan: patient has leukocytosis I reviewed CXR. She has new bilateral opacities. Will start Vancomycin and CEfipime. Dose not have atypical pattern on imaging and has cipro allergy. so will hold off at this time. (3) Cancer associated pain Current Visit: Yes Status: Acute Assessment and plan: currently well controlled (4) Jaundice Current Visit: Yes Status: Acute (5) Leukocytosis Current Visit: Yes Status: Acute Assessment and plan: Secondary to HCAP? continue to monitor Qualifiers: Qualified Code(s): D72.829 - Elevated white blood cell count, unspecified (6) Anemia Current Visit: Yes Status: Acute Assessment and plan: No active bleeding. likely related to malignancy Vit B12, folate, and Ferritin normal/ elevated continue to follow. Qualifiers: Qualified Code(s): D64.9 - Anemia, unspecified (7) Hyponatremia Current Visit: Yes Status: Acute Assessment and plan: mild Trending up likely nutritional continue IV fluids continue to follow. (8) Hypomagnesemia Current Visit: Yes Status: Acute Assessment and plan: replete (9) Hyperbilirubinemia Current Visit: Yes Status: Acute Assessment and plan: S/P ERCP/Stent trending down (10) Transaminitis Current Visit: Yes Status: Acute Assessment and plan: likely from obstruction and mets (11) Edema Current Visit: Yes Status: Acute Assessment and plan: She has had ultrasounds of the lower extremities negative for DVT. Most likely is secondary to IV fluids as well as nutritional deficits. We will continue to work on her nutrition status. She has been started on TPN. Lungs do not seem to be fluid overloaded on exam. And getting a chest x-ray to rule out pneumonia we will be able to see if she has any pulmonary edema that time. May consider some Lasix after we get her nutrition under control. worsening. will plan to add Lasix once we get her Potassium repleted. Qualifiers: Qualified Code(s): R60.9 - Edema, unspecified (12) Hepatosplenomegaly Current Visit: Yes Status: Acute (13) DVT prophylaxis Current Visit: Yes Status: Acute Assessment and plan: on lovenox - Subjective Interval history: No major events overnight. Patient is somewhat confused his AM. She states her pain is well controlled. She states that she has a cough and some mild dyspnea. she has had no N/V. She dose not know if her stools have become clear. she has no further complaints or concerns at this time. - Constitutional Vitals: Temp Pulse Resp BP Pulse Ox 97.8 F 93 12 107/68 90 L 12/05/16 08:30 12/05/16 08:30 12/05/16 08:30 12/05/16 08:30 12/05/16 08:30 Exam: General: This is a frail-appearing cachectic 66-year-old female who appears older than her stated age. She is alert and orientated to person and situation but not time or place. She is lying that appears to be comfortable and in no acute distress at this time. Head: Head is normal cephalic and atraumatic. EENT: There is marked scleral icterus, pupils equally round reactive to light, moist mucous membranes, negative supple without mass or thyromegaly. No cervical or supraclavicular lymphadenopathy. Heart: Regular rate and rhythm without murmurs rubs gallops. Lungs: Normal effort of breathing. Clear to auscultation bilaterally. Abdomen: Abdomen is mildly distended. There is marked hepatosplenomegaly and tenderness to palpation in the right upper quadrant. Tender to palpation along the liver. No guarding throughout the entirety of the exam. Musculoskeletal: There is some mild diffuse muscle atrophy. No gross deformity noted. Extremities: There is a 2-3+ pitting edema of the lower extremities up to the level of the knee bilaterally. Integument: Jaundice, no rashes or lesions noted. Internal Medicine: Result - Labs CBC & Chem 7: 12/05/16 06:25 12/05/16 13:35 Labs: Short CBC 12/05/16 Range/Units 06:25 WBC 14.1 H (4.3-11.1) K/mcL Hgb 10.2 L (11.5-15.4) g/dL Hct 29.7 L (35.3-44.9) % Plt Count 197 (140-400) K/mcL Neutrophils # 12.0 H (1.6-8.9) K/mcL BMP 12/05/16 12/05/16 04:00 06:25 Sodium Cancelled 130 L Potassium Cancelled 2.6 L Chloride Cancelled 100 Carbon Dioxide Cancelled 21 BUN Cancelled 11 Creatinine Cancelled 0.48 L Glucose Cancelled 142 H Calcium Cancelled 7.1 L Liver Function 12/05/16 12/05/16 12/05/16 Range/Units 04:00 06:25 06:25 Total Bilirubin Cancelled 15.1 H 15.1 H Direct Bilirubin 11.6 H (0.0-0.5) mg/dL AST Cancelled 46 H ALT Cancelled 52 Alkaline Phosphatase Cancelled 431 H Albumin Cancelled 1.2 L - ABG Interpretation ABG results: PT/INR, D-dimer PT 14.0 Seconds (9.4-12.1) H 12/05/16 06:25 - Impressions Impressions Chest X-Ray 12/04/16 10:43 IMPRESSION: New bilateral airspace disease compatible with pneumonia. Multiple known pulmonary nodules are obscured by airspace disease and affect of low lung volumes. There is a right-sided pleural effusion D/ / Rolly Yeboah MD / Rolly Yeboah MD Interpreting Provider: Rolly Yeboah MD Consult Discharge Plan - Plan Referrals: Flor Hudson MD [Primary Care Provider] - (Office of Dr Hudson called and let staff know that patient will seen oncologist from here on... ) Osorio Ward MD [Partnered Physician] - (oncology will schedule once we figure out when patient will be discharged) <Nagi Mancuso - Last Filed: 12/05/16 18:37> - Constitutional Vitals: Temp Pulse Resp BP Pulse Ox 97.4 F L 84 14 95/63 94 L 12/05/16 16:12 12/05/16 16:12 12/05/16 16:12 12/05/16 16:12 12/05/16 16:12 Internal Medicine: Result - Labs CBC & Chem 7: 12/05/16 06:25 12/05/16 15:58 Labs: Short CBC 12/05/16 Range/Units 06:25 WBC 14.1 H (4.3-11.1) K/mcL Hgb 10.2 L (11.5-15.4) g/dL Hct 29.7 L (35.3-44.9) % Plt Count 197 (140-400) K/mcL Neutrophils # 12.0 H (1.6-8.9) K/mcL BMP 12/05/16 12/05/16 12/05/16 04:00 06:25 13:35 Sodium Cancelled 130 L TNP Potassium Cancelled 2.6 L TNP Chloride Cancelled 100 TNP Carbon Dioxide Cancelled 21 TNP BUN Cancelled 11 TNP Creatinine Cancelled 0.48 L TNP Glucose Cancelled 142 H TNP Calcium Cancelled 7.1 L TNP 12/05/16 15:58 Sodium 131 L Potassium 3.1 L Chloride 104 Carbon Dioxide 20 BUN 12 Creatinine 0.42 L Glucose 75 Calcium 7.0 L Liver Function 12/05/16 12/05/16 12/05/16 Range/Units 04:00 06:25 06:25 Total Bilirubin Cancelled 15.1 H 15.1 H Direct Bilirubin 11.6 H (0.0-0.5) mg/dL AST Cancelled 46 H ALT Cancelled 52 Alkaline Phosphatase Cancelled 431 H Albumin Cancelled 1.2 L 12/05/16 Range/Units 15:58 Total Bilirubin 12.9 H Direct Bilirubin (0.0-0.5) mg/dL AST 49 H ALT 47 Alkaline Phosphatase 390 H Albumin 1.1 L - ABG Interpretation ABG results: PT/INR, D-dimer PT 14.0 Seconds (9.4-12.1) H 12/05/16 06:25 - Impressions Impressions Chest X-Ray 12/04/16 10:43 IMPRESSION: New bilateral airspace disease compatible with pneumonia. Multiple known pulmonary nodules are obscured by airspace disease and affect of low lung volumes. There is a right-sided pleural effusion D/ / Rolly Yeboah MD / Rolly Yeboah MD Interpreting Provider: Rolly Yeboah MD - Attending Attestation I examined this patient and my medical decision-making was reviewed with the BRICKMASON APPRENTICE/PA/Advanced Practice Nurse/Resident Physician. I agree with the documented findings, disposition and treatment plan as described except to the extent set forth below.
[2016-12-05] MEDS ORDERED: Vancomycin 750 MG in D5% in Water 250 ML IVPB SCH ×2 (12:00)
[2016-12-05] MEDS ORDERED: *HR* Phenylephrine 10 MG/ML VIAL IVC ONE (12:58)
[2016-12-05] MEDS ORDERED: Lidocaine -MPF 2% 5 ML VIAL INFILT ONE (12:58)
[2016-12-05] MEDS ORDERED: *HR* Propofol 200 MG/20 ML VIAL IVP ONE (12:58)
[2016-12-05] MEDS: Cefepime HCl 1,000 MG in D5% in Water (Mini-Bag+) 100 ML IVPB SCH (13:21)
--- NOTE | 2016-12-05 14:40 | Anesthesia Evaluation PreOp ---
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,liver,gallbladder) Anesthesia History: No Prior Anesthetic Complications : No Alcohol Use: none Drug use: none Medications and Allergies Dicyclomine [Dicyclomine] 20 mg PO Q8H PRN 11/26/16 [History] Furosemide [Lasix] 40 mg PO DAILY 11/26/16 [History] Insulin Glargine,Hum.rec.anlog [Lantus Solostar] 10 unit SQ HS 11/26/16 [History ] Metformin HCl [Metformin HCl ER] 500 mg PO BID 11/26/16 [History] Morphine Sulfate [Morphine Sulfate] 15 mg PO Q4H PRN 11/26/16 [History] Potassium Chloride [Potassium Chloride] 20 meq PO BID 11/26/16 [History] Sennosides/Docusate Sodium [Senna Plus] 1 each PO BID PRN 11/26/16 [History] Simvastatin [Zocor] 20 mg PO DAILY 11/26/16 [History] Spironolact/Hydrochlorothiazid [Aldactazide 25-25 Tablet] 1 each PO BID [History] Allergies ciprofloxacin [From Cipro] Allergy (Verified 11/25/16 19:50) Rash Sulfa (Sulfonamide Antibiotics) Allergy (Verified 11/25/16 19:50) Rash codeine Adverse Reaction (Verified 11/25/16 19:50) Itching - Meds/Allergy Pre-op Review Medications Reviewed: Yes Allergies Reviewed: Yes Beta Blockers on Current Med List: No Anesthesia Results - Labs 12/05/16 06:25 12/05/16 13:35 - Imaging EKG: report reviewed (SR) Additional studies: ECHO EF 60% Anesthesia Exam O2 Sat Weight 52.6 kg O2 Sat by Pulse Oximetry 91 O2 Sat by Pulse Oximetry 90 O2 Sat by Pulse Oximetry 90 O2 Sat by Pulse Oximetry 90 O2 Sat by Pulse Oximetry 95 O2 Sat by Pulse Oximetry 87 Vital Signs Temp Pulse Resp BP Pulse Ox 97.7 F 78 20 83/61 98 11/25/16 19:50 11/25/16 19:50 11/25/16 19:50 11/25/16 19:50 11/25/16 19:50 Height: 5'4 Weight: 115 lbs NPO (# of Hours): MN - HEENT Pupil (Motor): Pupils equal, EOMI Mallampati: II Teeth: Normal Oral Opening: Greater than 3 - CAN FILLING MACHINE OPERATOR LOC: Oriented CAN FILLING MACHINE OPERATOR Motor: Normal RUE, Normal LUE, Normal RLE, Normal LLE, Normal Face CAN FILLING MACHINE OPERATOR Sensory: Normal: RUE, LUE, RLE, LLE, Face - Cardiac Rhythm: Regular Murmur: None JVD: No Carotid Bruit: No - Pulmonary Breath Sounds: bilateral Clear Respiratory Effort: Symmetrical Anesthesia Assess/Plan ASA Score: 3 Modified Guion Scale for Level of Consciousness: Cooperative, oriented, and tranquil Anesthetic Plan: MAC Monitoring Plan: Standard Monitors Recovery Plan: Other (Discussed MAC, agrees to proceed)
--- NOTE | 2016-12-05 15:26 | Anesthesia Evaluation Post Op ---
Date of Encounter: 12/05/16 Time of Encounter: 15:28 - Vital Signs Vital Signs: vss - Lungs Lungs: Clear Ascult./Percussion - Airway Airway: Non-obstructed - Cardiovascular Baseline Rhythm - Mental Status Mental Status: Asleep with brisk response to light stimulation - Pain Pain Scale used: Robert (Faces) - Nausea Vomiting Nausea Vomiting: Not Present - Hydration Hydration: NPO, Has not voided - Discharge PostOp Status: Transfer Patient to floor
[2016-12-05 16:50] LABS: Alanine Aminotransferase 47 Units/L (0-55); Albumin 1.1 g/dL (3.5-5.0); Albumin/Globulin Ratio 0.4 (1.1-2.2); Alkaline Phosphatase 390 Units/L (38-126); Aspartate Amino Transferase 49 Units/L (5-34); BUN/Creatinine Ratio 29 (6-26); Bilirubin,Total 12.9 mg/dL (0.2-1.2); Blood Urea Nitrogen 12 mg/dL (7-20); Carbon Dioxide 20 mEq/L (19-29); Chloride 104 mEq/L (98-109); Globulin 3.1 g/dL (2.4-3.5); Glucose 75 mg/dL (70-99); Magnesium 1.1 mg/dL (1.6-2.6); Osmolality,Calculated 270 (280-300); Potassium 3.1 mEq/L (3.5-4.5); Sodium 131 mEq/L (136-145); Total Protein 4.2 g/dL (6.0-8.3); eGFR For African Americans > 60 (> 60); eGFR For Non-African Americans > 60 (> 60)
[2016-12-05] MEDS ORDERED: Clinimix E 5%-15% SOLUTION 2,000 ML with MVI, adult with vitamin K 10 ML, Magnesium S... IV SCH (17:00)
[2016-12-05] MEDS: Melatonin 3 MG TABLET PO SCH (22:29)
[2016-12-05] MEDS: traMADol 50 MG TABLET PO PRN (22:29)
[2016-12-05] MEDS: Mirtazapine 15 MG TABLET PO SCH (22:29)
[2016-12-05] MEDS: Potassium Chloride 40 MEQ/200 ML BAG IVPB ONE (23:35)
[2016-12-06] MEDS: Cefepime HCl 1,000 MG in D5% in Water (Mini-Bag+) 100 ML IVPB SCH ×3 (01:43→23:43)
[2016-12-06] MEDS: Vancomycin 750 MG in D5% in Water 250 ML IVPB SCH ×2 (02:11→12:36)
[2016-12-06] MEDS: Insulin LISPRO 300 UNITS/3 ML VIAL SQ SCH ×6 (04:50→22:31)
[2016-12-06] MEDS: *HR* Morphine Sulfate SR (12 HR) 15 MG TABLET.ER PO SCH ×3 (06:14→20:18)
[2016-12-06] MEDS: *HR* Enoxaparin 40 MG/0.4 ML SYRINGE SQ SCH (06:14)
[2016-12-06 06:37] LABS: Basophils % 0.2 %; Eosinophils % 0.1 %; Hematocrit 29.1 % (35.3-44.9); Immature Granulocytes % 4.3 % (0-4); Lymphocytes # 0.5 K/mcL (0.6-4.6); Lymphocytes % 3.8 %; Mean Corpuscular HGB Conc 33.7 g/dL (31.6-35.5); Mean Corpuscular Hemoglobin 30.7 pg (28.0-33.3); Mean Platelet Volume 10.3 fL (9.4-12.4); Monocytes # 0.9 K/mcL (0.0-1.3); Monocytes % 6.9 %; Neutrophils # 11.1 K/mcL (1.6-8.9); Platelet Count 142 K/mcL (140-400); Red Blood Count 3.19 M/mcL (3.82-4.97); Segmented Neutrophils % 84.7 %
[2016-12-06 06:42] LABS: Hemoglobin 9.8 g/dL (11.5-15.4); Mean Corpuscular Volume 91.2 fL (83.0-100.0)
[2016-12-06 07:07] LABS: BUN/Creatinine Ratio 27 (6-26); Blood Urea Nitrogen 12 mg/dL (7-20); Calcium 7.4 mg/dL (8.6-10.8); Carbon Dioxide 21 mEq/L (19-29); Chloride 103 mEq/L (98-109); Glucose 146 mg/dL (70-99); Magnesium 1.4 mg/dL (1.6-2.6); Osmolality,Calculated 276 (280-300); eGFR For African Americans > 60 (> 60); eGFR For Non-African Americans > 60 (> 60)
[2016-12-06 07:09] LABS: Phosphorous 2.4 mg/dL (2.3-4.7); Potassium 3.8 mEq/L (3.5-4.5); Sodium 132 mEq/L (136-145)
[2016-12-06 07:10] LABS: Ionized Calcium 1.15 mmol/L (1.15-1.35)
[2016-12-06 07:25] LABS: Lipase 77 Units/L (8-78)
[2016-12-06] MEDS ORDERED: Petrolatum, White OINT.PACK TP PRN (09:42)
[2016-12-06] MEDS: Ipratropium/Albuterol Neb 3 ML IH SCH ×3 (10:42→22:36)
--- NOTE | 2016-12-06 11:08 | Internal Med Progress Note ---
<Yehuda Denton - Last Filed: 12/06/16 11:15> Date of Encounter: 12/06/16 Time of Encounter: 11:06 - Assessment and plan (1) Metastatic cancer Current Visit: Yes Status: Acute Assessment and plan: Biopsy results suggest enteric adenocarcinoma However EGD and colonoscopy have not revealed a primary source. We did order a MRI of the abdomen with contrast 2 views of the pancreas to see if this is the source. However the patient did not tolerate this and the patient only had a MRI of the abdomen without contrast. Appreciate oncology's recommendations as to whether or not she needs further workup during this hospitalization. Most likely she will just need outpatient pets CT but will defer to oncology. she will follow up with oncology as outpatient (2) HAP (hospital-acquired pneumonia) Current Visit: Yes Status: Acute Assessment and plan: patient has leukocytosis I reviewed CXR. She has new bilateral opacities. Will start Vancomycin and CEfipime. Dose not have atypical pattern on imaging and has cipro allergy. so will hold off at this time. (3) Hypoxemia Current Visit: Yes Status: Acute Assessment and plan: Secondary to community-acquired pneumonia. Currently she is on 3 L of oxygen. We will also had 2 nebs and incentive spirometry. On exam I do not hear any crepitus so I think this is less likely to be from pulmonary edema. However she is quite edematous so we will go ahead and give her some Lasix as well. (4) Cancer associated pain Current Visit: Yes Status: Acute Assessment and plan: currently well controlled (5) Jaundice Current Visit: Yes Status: Acute (6) Leukocytosis Current Visit: Yes Status: Acute Assessment and plan: Secondary to HCAP Trending down after antibiotics initiated. Qualifiers: Qualified Code(s): D72.829 - Elevated white blood cell count, unspecified (7) Anemia Current Visit: Yes Status: Acute Assessment and plan: No active bleeding. likely related to malignancy Vit B12, folate, and Ferritin normal/ elevated continue to follow. Qualifiers: Qualified Code(s): D64.9 - Anemia, unspecified (8) Hyponatremia Current Visit: Yes Status: Acute Assessment and plan: mild Trending up likely nutritional continue to follow. (9) Hypomagnesemia Current Visit: Yes Status: Acute Assessment and plan: replete (10) Hyperbilirubinemia Current Visit: Yes Status: Acute Assessment and plan: S/P ERCP/Stent trending down (11) Transaminitis Current Visit: Yes Status: Acute Assessment and plan: likely from obstruction and mets trending down (12) Edema Current Visit: Yes Status: Acute Assessment and plan: She has had ultrasounds of the lower extremities negative for DVT. Most likely is secondary to IV fluids as well as nutritional deficits. We will continue to work on her nutrition status. She has been started on TPN. Lungs do not seem to be fluid overloaded on exam. And getting a chest x-ray to rule out pneumonia we will be able to see if she has any pulmonary edema that time. May consider some Lasix after we get her nutrition under control. worsening. will plan to add Lasix Qualifiers: Qualified Code(s): R60.9 - Edema, unspecified (13) Hepatosplenomegaly Current Visit: Yes Status: Acute (14) DVT prophylaxis Current Visit: Yes Status: Acute Assessment and plan: on lovenox - Subjective Interval history: Patient was unable to tolerate MRI. MRI was changed to W/O contrast by [facility]. This Am patient states she is feeling better. She has still not ate anything. She states that she feels to week. She will try later when her son comes in. she dose admit to continued cough and dyspnea. She admits to continued abdominal pain but states it is well controlled. She has no further complaints or concerns at this time. - Constitutional Vitals: Temp Pulse Resp BP Pulse Ox 97.3 F L 83 18 111/73 94 L 12/06/16 08:03 12/06/16 08:03 12/06/16 10:43 12/06/16 08:03 12/06/16 10:43 General appearance: Present: cachectic, A&O X 3 Exam: General: This is a frail-appearing cachectic 66-year-old female who appears to be older than her stated age. She is lying but appears comfortable she is in no acute distress at this time. Head: Head is normal cephalic and atraumatic. HEENT: Head is normocephalic and atraumatic. She has marked icterus, pupils equally round reactive to light and accommodation. Moist mucous members. Dentition intact. Neck is supple without mass or thyromegaly. No cervical or supraclavicular lymphadenopathy palpable on exam. Heart: Regular rate and rhythm without murmurs rubs or gallops. Lungs: Clear to auscultation bilaterally. She has a normal effort of breathing. She is on 3 L of oxygen right now. She has a normal rise and expanse of the chest wall bilaterally Abdomen: Abdomen is mildly distended, soft tender to palpation in the right upper quadrant and along the edge of the liver. She does have very obvious and very marked hepatosplenomegaly also has some mild splenomegaly palpable on exam. No guarding throughout the entirety of the exam. Musculoskeletal: She does have some mild diffuse muscle atrophy. No gross deformity noted. Integument: Jaundice, no rash or lesions. Internal Medicine: Result - Labs CBC & Chem 7: 12/06/16 06:12 12/06/16 06:12 Labs: Short CBC 12/06/16 12/06/16 Range/Units 03:55 06:12 WBC TNP 13.1 H Hgb TNP 9.8 L Hct TNP 29.1 L Plt Count TNP 142 Neutrophils # [employer] 11.1 H BMP 12/05/16 12/05/16 12/06/16 13:35 15:58 06:12 Sodium TNP 131 L 132 L Potassium TNP 3.1 L 3.8 Chloride TNP 104 103 Carbon Dioxide TNP 20 21 BUN TNP 12 12 Creatinine TNP 0.42 L 0.44 L Glucose TNP 75 146 H Calcium TNP 7.0 L 7.4 L Liver Function 12/05/16 Range/Units 15:58 Total Bilirubin 12.9 H (0.2-1.2) mg/dL AST 49 H (5-34) Units/L ALT 47 (0-55) Units/L Alkaline Phosphatase 390 H (38-126) Units/L Albumin 1.1 L (3.5-5.0) g/dL - ABG Interpretation ABG results: PT/INR, D-dimer PT 14.0 Seconds (9.4-12.1) H 12/05/16 06:25 - Impressions Impressions Abdomen MRI 12/05/16 18:23 IMPRESSION: 1. Limited examination due to lack of intravenous contrast administration. 2. Limited evaluation of the pancreas due to mass effect from the enlarged liver and lack of contrast administration. However, no obvious pancreatic mass is identified. Additionally, there may be pancreatic edema related to pancreatitis or anasarca. 3. Marked hepatomegaly due to extensive metastatic disease. 4. Cholelithiasis without definite findings of acute cholecystitis. Irregular wall thickening involving portions of the gallbladder is likely related to metastatic disease or direct invasion by hepatic metastases. 5. Likely confluent portohepatic lymphadenopathy, resulting in appearing narrowing of the main portal vein, left basement of the celiac and superior mesenteric arteries, and possible invasion of the right vijay of the diaphragm. 6. Metastatic retroperitoneal lymphadenopathy. 7. Metallic biliary stent in place with no biliary dilation. 8. Moderate bilateral pleural effusions, trace ascites, and severe anasarca. 9. Edematous wall thickening involving the stomach and portions of the small bowel and colon, potentially related to portal gastropathy, enteropathy, and colopathy, respectively. 10. Small sliding hiatal hernia. D/ / Bereket Finch MD / Bereket Finch MD Interpreting Provider: Bereket Finch MD Consult Discharge Plan - Plan Referrals: Flor Hudson MD [Primary Care Provider] - (Office of Dr Hudson called and let staff know that patient will seen oncologist from here on... ) Osorio Ward MD [Partnered Physician] - (oncology will schedule once we figure out when patient will be discharged) <Nagi Mancuso P - Last Filed: 12/06/16 18:26> - Constitutional Vitals: Temp Pulse Resp BP Pulse Ox 97.5 F L 86 18 92/62 92 L 12/06/16 11:50 12/06/16 11:50 12/06/16 11:50 12/06/16 11:50 12/06/16 11:50 Internal Medicine: Result - Labs CBC & Chem 7: 12/06/16 06:12 12/06/16 06:12 Labs: Short CBC 12/06/16 12/06/16 Range/Units 03:55 06:12 WBC TNP 13.1 H Hgb TNP 9.8 L Hct TNP 29.1 L Plt Count TNP 142 Neutrophils # [employer] 11.1 H BMP 12/06/16 06:12 Sodium 132 L Potassium 3.8 Chloride 103 Carbon Dioxide 21 BUN 12 Creatinine 0.44 L Glucose 146 H Calcium 7.4 L - ABG Interpretation ABG results: PT/INR, D-dimer PT 14.0 Seconds (9.4-12.1) H 12/05/16 06:25 - Impressions Impressions Abdomen MRI 12/05/16 18:23 IMPRESSION: 1. Limited examination due to lack of intravenous contrast administration. 2. Limited evaluation of the pancreas due to mass effect from the enlarged liver and lack of contrast administration. However, no obvious pancreatic mass is identified. Additionally, there may be pancreatic edema related to pancreatitis or anasarca. 3. Marked hepatomegaly due to extensive metastatic disease. 4. Cholelithiasis without definite findings of acute cholecystitis. Irregular wall thickening involving portions of the gallbladder is likely related to metastatic disease or direct invasion by hepatic metastases. 5. Likely confluent portohepatic lymphadenopathy, resulting in appearing narrowing of the main portal vein, left basement of the celiac and superior mesenteric arteries, and possible invasion of the right vijay of the diaphragm. 6. Metastatic retroperitoneal lymphadenopathy. 7. Metallic biliary stent in place with no biliary dilation. 8. Moderate bilateral pleural effusions, trace ascites, and severe anasarca. 9. Edematous wall thickening involving the stomach and portions of the small bowel and colon, potentially related to portal gastropathy, enteropathy, and colopathy, respectively. 10. Small sliding hiatal hernia. D/ / Bereket Finch MD / Bereket Finch MD Interpreting Provider: Bereket Finch MD - Attending Attestation I examined this patient and my medical decision-making was reviewed with the D[employer] P[employer]TER/PA/Advanced Practice Nurse/Resident Physician. I agree with the documented findings, disposition and treatment plan as described except to the extent set forth below.
[2016-12-06] MEDS: Furosemide 40 MG/4 ML VIAL IVP SCH (11:51)
[2016-12-06 14:15] LABS: MMR by IHC Specimen 17SM-2247 A1; MMR by IHC with MLH1 NORMAL; MMR by IHC with MSH2 NORMAL; MMR by IHC with MSH6 NORMAL; MMR by IHC with PMS2 NORMAL
--- NOTE | 2016-12-06 15:20 | Event Note ---
Date of Encounter: 12/06/16 Time of Encounter: 15:10 Attempted to see pt again - she refused assessment and asked that I leave the room. She did apologize but continued to state she had been "bothered all day" and needed to rest. I attempted discussion with pt, discussing how if she wanted to go home, she was not helping herself by refusing care and not participating with therapy. I asked her if she still wanted
[2016-12-06 15:24] LABS: MMR by IHC Result NORMAL
[2016-12-06] MEDS: traMADol 50 MG TABLET PO PRN ×2 (15:59→23:44)
--- NOTE | 2016-12-06 16:14 | Palliative Progress Note ---
Date of Encounter: 12/06/16 Time of Encounter: 16:10 - Assessment and plan (1) Cancer associated pain Current Visit: Yes Status: Acute Assessment and plan: Continue MS Contin with IR Morphine for breakthrough. (2) Anxiety Current Visit: Yes Status: Acute Assessment and plan: Begin low dose Lorazepam 0.5 bid PRN and monitor (3) Nausea Current Visit: Yes Status: Acute Assessment and plan: Continue Ondansetron PRN. Has not utilized x 24 hours. (4) Diarrhea Current Visit: Yes Status: Acute Qualifiers: Diarrhea type: unspecified type Qualified Code(s): R19.7 - Diarrhea, unspecified (5) Depression Current Visit: Yes Status: Acute Assessment and plan: Continue Remeron to assist with mood and appetite. Qualifiers: Depression Type: unspecified Qualified Code(s): F32.9 - Major depressive disorder, single episode, unspecified (6) Goals of care, counseling/discussion Current Visit: Yes Status: Acute Assessment and plan: Patient very emotional and tearful today. Verbalized a lot of fear and anxiety. Provided emotional support. She would like to speak with someone re: chemotherapy but states "not until Friday". She is unsure if she desires to proceed with further testing or treatment. Will see if oncology CHILI MAKER can provide her with some education on Friday. I explained to her that she has to be eating , stronger, and participate with therapy and rehab if she desires to do any treatment. Told her unsafe for her to go home alone and she needed to consider either rehab, or if she decides she doesn't want to pursue any treatment that hospice could help with her care. She continues on TPN for nutritional support and treatment for pneumonia. Will continue to follow. (7) Metastatic cancer Current Visit: Yes Status: Acute - Time Spent With Patient Total time spent is greater than 50% in coordination of care (as documented) at patient's floor/unit and/or counseling patient: 25 - 35 minutes - Subjective Interval history: Patient awake and alert. Very emotional and tearful. Denies pain at this time , but states telemetry box very uncomfortable and frequently slides, lying on her right side and increases her pain. C/o anxiousness making it difficult for her to think and function. Has ate some "bites" today. No family present - Constitutional Vitals: Abnormal lab results WBC 13.1 K/mcL (4.3-11.1) H 12/06/16 06:12 RBC 3.19 M/mcL (3.82-4.97) L 12/06/16 06:12 Hgb 9.8 g/dL (11.5-15.4) L 12/06/16 06:12 Hct 29.1 % (35.3-44.9) L 12/06/16 06:12 RDW 18.0 % (11.5-14.5) H 12/06/16 06:12 Immature Gran % 4.3 % (0-4) H 12/06/16 06:12 Neutrophils # 11.1 K/mcL (1.6-8.9) H 12/06/16 06:12 Lymphocytes # 0.5 K/mcL (0.6-4.6) L 12/06/16 06:12 Hypochromasia Present (Not Present) A 11/29/16 03:43 Anisocytosis 1+ (Not Present) A 11/29/16 03:43 Immature Retic Fraction 5.1 % (11.0-38.0) L 11/26/16 23:17 Retic Hgb Equivalent 39.3 pg (28.61-36.33) H 11/26/16 23:17 PT 14.0 Seconds (9.4-12.1) H 12/05/16 06:25 APTT 22.1 Seconds (26.0-36.0) L 11/26/16 06:14 Sodium 132 mEq/L (136-145) L 12/06/16 06:12 Creatinine 0.44 mg/dL (0.57-1.11) L 12/06/16 06:12 BUN/Creatinine Ratio 27 (6-26) H 12/06/16 06:12 Glucose 146 mg/dL (70-99) H 12/06/16 06:12 POC Glucose 174 (58-89) H 12/06/16 11:45 Calculated Osmolality 276 (280-300) L 12/06/16 06:12 Calcium 7.4 mg/dL (8.6-10.8) L 12/06/16 06:12 Magnesium 1.4 mg/dL (1.6-2.6) L 12/06/16 06:12 Transferrin 140 mg/dL (180-382) L 11/26/16 23:17 Ferritin 2691 ng/ml (5-204) H 11/26/16 23:17 Total Bilirubin 12.9 mg/dL (0.2-1.2) H 12/05/16 15:58 Direct Bilirubin 11.6 mg/dL (0.0-0.5) H 12/05/16 06:25 Indirect Bilirubin 3.5 mg/dL (0.0-1.2) H 12/05/16 06:25 AST 49 Units/L (5-34) H 12/05/16 15:58 Alkaline Phosphatase 390 Units/L (38-126) H 12/05/16 15:58 Lactate Dehydrogenase 1622 Units/L (159-327) H 11/26/16 23:17 Serum Total Protein 4.2 g/dL (6.0-8.3) L 12/05/16 15:58 Albumin 1.1 g/dL (3.5-5.0) L 12/05/16 15:58 Albumin (PEP) 3.50 g/dL (3.75-5.01) L 11/26/16 23:17 Albumin/Globulin Ratio 0.4 (1.1-2.2) L 12/05/16 15:58 Prealbumin 5.0 mg/dL (16.0-38.0) L 12/03/16 05:45 Triglycerides 213 mg/dL (< 150) H 12/03/16 05:45 Carcinoembryonic Ag 1906.4 ng/mL (0-5.0) H 11/26/16 23:17 CA 19-9 Antigen 517662 U/mL (0-37) H 11/26/16 23:17 Vitamin B12 > 2000 pg/mL (213-816) H 11/26/16 23:17 Urine Color [place] (Yellow) A 11/29/16 12:30 Urine Clarity Cloudy (Clear) A 11/29/16 12:30 Urine Protein 30 mg/dL (Neg-Trace) H 11/29/16 12:30 Urine Ketones Trace mg/dL (Negative) H 11/29/16 12:30 Urine Bilirubin Large (Negative) H 11/29/16 12:30 Ur Leukocyte Esterase Large (Negative) H 11/29/16 12:30 Urine Microscopic RBC 3-5 per hpf (0-3) H 11/29/16 12:30 Urine Microscopic WBC 50-100 per hpf (0-3) H 11/29/16 12:30 Ur Squamous Epith Cells Many per lpf (None-Few) H 11/29/16 12:30 General appearance: Present: no acute distress - Respiratory Respiratory exam: Present: decreased breath sounds, CTAB - Cardiovascular Cardiovascular exam: Present: +S1, +S2 - GI/Abdominal GI/Abdominal exam: Present: distended, firm, normal bowel sounds, tenderness - Extremities Exam Additional comments: 2-3+ edema bilateral lower extremities - Neurological Exam Neurological exam: Present: alert, oriented X3, strengths equal and symetr throughout - Skin Skin exam: Present: dry, pallor, warm Additional comments: jaundiced Palliative Quality Palliative Quality: Screen for Code Status: NA (discuss later), Screen for Goals of Care: NA (awaiting biopsy), Screen for Pain: Yes, If Pain Regimen Started, Initiate Bowel Regimen: NA (diarrhea), Screen for Nausea/Vomitting: Yes Code Status: 11/27/16 11:52 CODE [Resuscitation Status: Active] [RES] Routine Comment: Resuscitation Status: [id number] - Labs CBC & Chem 7: 12/06/16 06:12 12/06/16 06:12 Labs: Laboratory Results - last 24 hr 12/02/16 12/05/16 12/05/16 12:00 08:31 11:28 WBC RBC Hgb Hct MCV MCH MCHC RDW Plt Count MPV Immature Gran % Seg Neutrophils % Band Neutrophils % Lymphocytes % Monocytes % Eosinophils % Basophils % Metamyelocytes % Neutrophils # Lymphocytes # Monocytes # Eosinophils # Basophils # Immature Plt Fraction Sodium Potassium Chloride Carbon Dioxide BUN Creatinine Est GFR ( Amer) Est GFR (Non-Af Amer) BUN/Creatinine Ratio Glucose POC Glucose 191 H 173 H Calculated Osmolality Calcium Ionized Calcium Phosphorus Magnesium Total Bilirubin AST ALT Alkaline Phosphatase Serum Total Protein Albumin Globulin Albumin/Globulin Ratio Lipase Tumor MMR Prot Spec ID [id number] MMR Protein MLH1 (IHC) NORMAL MMR Protein MSH2 (IHC) NORMAL MMR Protein MSH6 (IHC) NORMAL MMR Protein PMS2 (IHC) NORMAL Tumor MMR Protein (IHC) NORMAL Specimen Rejected 12/05/16 12/05/16 12/05/16 15:58 16:14 18:56 WBC RBC Hgb Hct MCV MCH MCHC RDW Plt Count MPV Immature Gran % Seg Neutrophils % Band Neutrophils % Lymphocytes % Monocytes % Eosinophils % Basophils % Metamyelocytes % Neutrophils # Lymphocytes # Monocytes # Eosinophils # Basophils # Immature Plt Fraction Sodium 131 L Potassium 3.1 L Chloride 104 Carbon Dioxide 20 BUN 12 Creatinine 0.42 L Est GFR ( Amer) > 60 Est GFR (Non-Af Amer) > 60 BUN/Creatinine Ratio 29 H Glucose 75 POC Glucose 74 164 H Calculated Osmolality 270 L Calcium 7.0 L Ionized Calcium Phosphorus Magnesium 1.1 L Total Bilirubin 12.9 H AST 49 H ALT 47 Alkaline Phosphatase 390 H Serum Total Protein 4.2 L Albumin 1.1 L Globulin 3.1 Albumin/Globulin Ratio 0.4 L Lipase Tumor MMR Prot Spec ID MMR Protein MLH1 (IHC) MMR Protein MSH2 (IHC) MMR Protein MSH6 (IHC) MMR Protein PMS2 (IHC) Tumor MMR Protein (IHC) Specimen Rejected 12/05/16 12/06/16 12/06/16 22:54 03:15 03:15 WBC RBC Hgb Hct MCV MCH MCHC RDW Plt Count MPV Immature Gran % Seg Neutrophils % Band Neutrophils % Lymphocytes % Monocytes % Eosinophils % Basophils % Metamyelocytes % Neutrophils # Lymphocytes # Monocytes # Eosinophils # Basophils # Immature Plt Fraction Sodium Potassium Chloride Carbon Dioxide BUN Creatinine Est GFR ( Amer) Est GFR (Non-Af Amer) BUN/Creatinine Ratio Glucose POC Glucose 110 H Calculated Osmolality Calcium Ionized Calcium TNP Phosphorus Magnesium Total Bilirubin AST ALT Alkaline Phosphatase Serum Total Protein Albumin Globulin Albumin/Globulin Ratio Lipase Tumor MMR Prot Spec ID MMR Protein MLH1 (IHC) MMR Protein MSH2 (IHC) MMR Protein MSH6 (IHC) MMR Protein PMS2 (IHC) Tumor MMR Protein (IHC) Specimen Rejected MCV Delta 12/06/16 12/06/16 12/06/16 03:15 03:55 04:08 WBC TNP RBC TNP Hgb TNP Hct TNP MCV TNP MCH TNP MCHC TNP RDW TNP Plt Count TNP MPV TNP Immature Gran % TNP Seg Neutrophils % TNP Band Neutrophils % TNP Lymphocytes % TNP Monocytes % TNP Eosinophils % TNP Basophils % TNP Metamyelocytes % TNP Neutrophils # [employer] Lymphocytes # [employer] Monocytes # [employer]ER Eosinophils # [employer] Basophils # [employer] Immature Plt Fraction TNP Sodium Potassium Chloride Carbon Dioxide BUN Creatinine Est GFR ( Amer) Est GFR (Non-Af Amer) BUN/Creatinine Ratio Glucose POC Glucose 166 H Calculated Osmolality Calcium Ionized Calcium Phosphorus Magnesium Total Bilirubin AST ALT Alkaline Phosphatase Serum Total Protein Albumin Globulin Albumin/Globulin Ratio Lipase Tumor MMR Prot Spec ID MMR Protein MLH1 (IHC) MMR Protein MSH2 (IHC) MMR Protein MSH6 (IHC) MMR Protein PMS2 (IHC) Tumor MMR Protein (IHC) Specimen Rejected Contaminated 12/06/16 12/06/16 12/06/16 06:12 06:12 07:48 WBC 13.1 H RBC 3.19 L Hgb 9.8 L Hct 29.1 L MCV 91.2 MCH 30.7 MCHC 33.7 RDW 18.0 H Plt Count 142 MPV 10.3 Immature Gran % 4.3 H Seg Neutrophils % 84.7 Band Neutrophils % Lymphocytes % 3.8 Monocytes % 6.9 Eosinophils % 0.1 Basophils % 0.2 Metamyelocytes % Neutrophils # 11.1 H Lymphocytes # 0.5 L Monocytes # 0.9 Eosinophils # 0.0 Basophils # 0.0 Immature Plt Fraction Sodium 132 L Potassium 3.8 Chloride 103 Carbon Dioxide 21 BUN 12 Creatinine 0.44 L Est GFR ( Amer) > 60 Est GFR (Non-Af Amer) > 60 BUN/Creatinine Ratio 27 H Glucose 146 H POC Glucose 132 H Calculated Osmolality 276 L Calcium 7.4 L Ionized Calcium 1.15 Phosphorus 2.4 Magnesium 1.4 L Total Bilirubin AST ALT Alkaline Phosphatase Serum Total Protein Albumin Globulin Albumin/Globulin Ratio Lipase 77 Tumor MMR Prot Spec ID MMR Protein MLH1 (IHC) MMR Protein MSH2 (IHC) MMR Protein MSH6 (IHC) MMR Protein PMS2 (IHC) Tumor MMR Protein (IHC) Specimen Rejected 12/06/16 11:45 WBC RBC Hgb Hct MCV MCH MCHC RDW Plt Count MPV Immature Gran % Seg Neutrophils % Band Neutrophils % Lymphocytes % Monocytes % Eosinophils % Basophils % Metamyelocytes % Neutrophils # Lymphocytes # Monocytes # Eosinophils # Basophils # Immature Plt Fraction Sodium Potassium Chloride Carbon Dioxide BUN Creatinine Est GFR ( Amer) Est GFR (Non-Af Amer) BUN/Creatinine Ratio Glucose POC Glucose 174 H Calculated Osmolality Calcium Ionized Calcium Phosphorus Magnesium Total Bilirubin AST ALT Alkaline Phosphatase Serum Total Protein Albumin Globulin Albumin/Globulin Ratio Lipase Tumor MMR Prot Spec ID MMR Protein MLH1 (IHC) MMR Protein MSH2 (IHC) MMR Protein MSH6 (IHC) MMR Protein PMS2 (IHC) Tumor MMR Protein (IHC) Specimen Rejected - Impressions Impressions Abdomen MRI 12/05/16 18:23 IMPRESSION: 1. Limited examination due to lack of intravenous contrast administration. 2. Limited evaluation of the pancreas due to mass effect from the enlarged liver and lack of contrast administration. However, no obvious pancreatic mass is identified. Additionally, there may be pancreatic edema related to pancreatitis or anasarca. 3. Marked hepatomegaly due to extensive metastatic disease. 4. Cholelithiasis without definite findings of acute cholecystitis. Irregular wall thickening involving portions of the gallbladder is likely related to metastatic disease or direct invasion by hepatic metastases. 5. Likely confluent portohepatic lymphadenopathy, resulting in appearing narrowing of the main portal vein, left basement of the celiac and superior mesenteric arteries, and possible invasion of the right vijay of the diaphragm. 6. Metastatic retroperitoneal lymphadenopathy. 7. Metallic biliary stent in place with no biliary dilation. 8. Moderate bilateral pleural effusions, trace ascites, and severe anasarca. 9. Edematous wall thickening involving the stomach and portions of the small bowel and colon, potentially related to portal gastropathy, enteropathy, and colopathy, respectively. 10. Small sliding hiatal hernia. D/ / Bereket Finch MD / Bereket Finch MD Interpreting Provider: Bereket Finch MD - ABG Interpretation ABG results: PT/INR, D-dimer PT 14.0 Seconds (9.4-12.1) H 12/05/16 06:25 Consult Discharge Plan - Plan Referrals: Flor Hudson MD [Primary Care Provider] - (Office of Dr Hudson called and let staff know that patient will seen oncologist from here on... ) Osorio Ward MD [Partnered Physician] - (oncology will schedule once we figure out when patient will be discharged)
[2016-12-06] MEDS ORDERED: Clinimix E 5%-15% SOLUTION 2,000 ML with MVI, adult with vitamin K 10 ML, Calcium Glu... IV SCH (17:00)
[2016-12-06] MEDS: Ondansetron 4 MG/2 ML VIAL IVP PRN (20:18)
[2016-12-06] MEDS: Melatonin 3 MG TABLET PO SCH (22:11)
[2016-12-06] MEDS: Mirtazapine 15 MG TABLET PO SCH (22:11)
[2016-12-07 01:24] LABS: Hematocrit 27.3 % (35.3-44.9); Hemoglobin 9.3 g/dL (11.5-15.4); Mean Corpuscular HGB Conc 34.1 g/dL (31.6-35.5); Mean Corpuscular Hemoglobin 31.1 pg (28.0-33.3); Mean Corpuscular Volume 91.3 fL (83.0-100.0); Mean Platelet Volume 9.7 fL (9.4-12.4); Platelet Count 141 K/mcL (140-400); Red Blood Count 2.99 M/mcL (3.82-4.97); Red Cell Distribution Width 17.7 % (11.5-14.5)
[2016-12-07 01:37] LABS: Alanine Aminotransferase 46 Units/L (0-55); Albumin/Globulin Ratio 0.3 (1.1-2.2); Alkaline Phosphatase 397 Units/L (38-126); Aspartate Amino Transferase 64 Units/L (5-34); BUN/Creatinine Ratio 32 (6-26); Blood Urea Nitrogen 15 mg/dL (7-20); Calcium 7.4 mg/dL (8.6-10.8); Carbon Dioxide 21 mEq/L (19-29); Chloride 99 mEq/L (98-109); Globulin 3.5 g/dL (2.4-3.5); Glucose 184 mg/dL (70-99); Magnesium 1.2 mg/dL (1.6-2.6); Osmolality,Calculated 276 (280-300); Phosphorous 2.6 mg/dL (2.3-4.7); Potassium 2.8 mEq/L (3.5-4.5); Sodium 130 mEq/L (136-145); Total Protein 4.6 g/dL (6.0-8.3); eGFR For African Americans > 60 (> 60); eGFR For Non-African Americans > 60 (> 60)
[2016-12-07 01:38] LABS: Albumin 1.1 g/dL (3.5-5.0)
[2016-12-07 01:39] LABS: Bilirubin,Indirect 1.6 mg/dL (0.0-1.2)
[2016-12-07 01:42] LABS: Bilirubin,Direct 8.4 mg/dL (0.0-0.5)
[2016-12-07 01:48] LABS: Hypochromasia Present (Not Present); Lymphocytes # 0.4 K/mcL (0.6-4.6); Monocytes # 1.1 K/mcL (0.0-1.3); Neutrophils # 16.7 K/mcL (1.6-8.9)
[2016-12-07 01:50] LABS: Macrocytosis Present (Not Present); Platelet Estimate Normal (Normal); Tear Drop Cells 1+ (Not Present)
[2016-12-07] MEDS: Vancomycin 750 MG in D5% in Water 250 ML IVPB SCH (02:03)
[2016-12-07] MEDS: Insulin LISPRO 300 UNITS/3 ML VIAL SQ SCH ×5 (02:08→18:39)
[2016-12-07] MEDS: Ipratropium/Albuterol Neb 3 ML IH SCH ×5 (05:04→22:59)
[2016-12-07] MEDS: *HR* Morphine Sulfate SR (12 HR) 15 MG TABLET.ER PO SCH ×2 (06:01→18:38)
[2016-12-07] MEDS: *HR* Enoxaparin 40 MG/0.4 ML SYRINGE SQ SCH (06:10)
[2016-12-07] MEDS: Furosemide 40 MG/4 ML VIAL IVP SCH (09:03)
[2016-12-07] MEDS: Cefepime HCl 1,000 MG in D5% in Water (Mini-Bag+) 100 ML IVPB SCH (11:02)
[2016-12-07] MEDS: Vancomycin 1,000 MG in D5% in Water 250 ML IVPB SCH (11:43)
[2016-12-07] MEDS: Ondansetron 4 MG/2 ML VIAL IVP PRN (11:43)
[2016-12-07] MEDS ORDERED: Clinimix E 5%-15% SOLUTION 2,000 ML with MVI, adult with vitamin K 10 ML, Calcium Glu... IV SCH (17:00)
--- NOTE | 2016-12-07 18:08 | Internal Med Progress Note ---
Date of Encounter: 12/07/16 Time of Encounter: 18:06 - Assessment and plan (1) Metastatic cancer Current Visit: Yes Status: Acute Assessment and plan: 12/07/2016 patient is very upset and emotional palliative onboard will follow recommendations please see below regarding details Biopsy results suggest enteric adenocarcinoma However EGD and colonoscopy have not revealed a primary source. We did order a MRI of the abdomen with contrast 2 views of the pancreas to see if this is the source. However the patient did not tolerate this and the patient only had a MRI of the abdomen without contrast. Appreciate oncology's recommendations as to whether or not she needs further workup during this hospitalization. Most likely she will just need outpatient pets CT but will defer to oncology. she will follow up with oncology as outpatient (2) Hypoxemia Current Visit: Yes Status: Acute Assessment and plan: Secondary to community-acquired pneumonia. Currently she is on 3 L of oxygen. We will also had 2 nebs and incentive spirometry. On exam I do not hear any crepitus so I think this is less likely to be from pulmonary edema. However she is quite edematous so we will go ahead and give her some Lasix as well. (3) Cancer associated pain Current Visit: Yes Status: Acute Assessment and plan: currently well controlled (4) Jaundice Current Visit: Yes Status: Acute - Subjective Interval history: seen and examined patient is very upset and emotional palliative onboard will follow recommendations - Constitutional Vitals: Temp Pulse Resp BP Pulse Ox 97.5 F L 86 20 92/60 88 L 12/07/16 15:04 12/07/16 15:04 12/07/16 17:03 12/07/16 15:04 12/07/16 17:03 General appearance: Present: cachectic, A&O X 3 - Head Head exam: Present: atraumatic, normocephalic - Eye Eye exam: Present: PERRL, conjuntiva pink, sclera anicteric Pupils: Present: PERRL - Neck Neck exam general surgery: Present: supple, trachea midline. Absent: lymphadenopathy - Respiratory Respiratory exam: Present: CTAB. Absent: accessory muscle use, rales, rhonchi, wheezes - Cardiovascular Cardiovascular exam: Present: RRR, +S1, +S2. Absent: diastolic murmur, gallop, rubs, systolic murmur - GI/Abdominal GI/Abdominal exam: Present: normal bowel sounds, soft, no peritoneal signs. Absent: distended, tenderness - Extremities Exam Extremities exam: Present: warm, radial pulses palpable and symetrical. Absent : calf tenderness, cyanotic, pedal edema - Neurological Exam Neurological exam: Present: CN II-XII intact, oriented X3, no focal deficits. Absent: pronater drift, facial droop, speech deficit - Skin Skin exam: Present: dry, intact Internal Medicine: Result - Labs CBC & Chem 7: 12/07/16 01:09 12/07/16 01:09 Labs: Short CBC 12/07/16 Range/Units 01:09 WBC 18.2 H (4.3-11.1) K/mcL Hgb 9.3 L (11.5-15.4) g/dL Hct 27.3 L (35.3-44.9) % Plt Count 141 (140-400) K/mcL Neutrophils # 16.7 H (1.6-8.9) K/mcL BMP 12/07/16 01:09 Sodium 130 L Potassium 2.8 L D Chloride 99 Carbon Dioxide 21 BUN 15 Creatinine 0.47 L Glucose 184 H Calcium 7.4 L Liver Function 12/07/16 12/07/16 Range/Units 01:09 01:09 Total Bilirubin 10.0 H 10.0 H (0.2-1.2) mg/dL Direct Bilirubin 8.4 H (0.0-0.5) mg/dL AST 64 H (5-34) Units/L ALT 46 (0-55) Units/L Alkaline Phosphatase 397 H (38-126) Units/L Albumin 1.1 L (3.5-5.0) g/dL - ABG Interpretation ABG results: PT/INR, D-dimer PT 14.0 Seconds (9.4-12.1) H 12/05/16 06:25 Consult Discharge Plan - Plan Referrals: Flor Hudson MD [Primary Care Provider] - (Office of Dr Hudson called and let staff know that patient will seen oncologist from here on... ) Osorio Ward MD [Partnered Physician] - (oncology will schedule once we figure out when patient will be discharged)
[2016-12-07] MEDS: Mirtazapine 15 MG TABLET PO SCH (21:00)
[2016-12-07] MEDS: Melatonin 3 MG TABLET PO SCH (21:00)
[2016-12-07] MEDS: traMADol 50 MG TABLET PO PRN (22:57)
[2016-12-08] MEDS: Insulin LISPRO 300 UNITS/3 ML VIAL SQ SCH ×7 (01:32→23:00)
[2016-12-08] MEDS: Cefepime HCl 1,000 MG in D5% in Water (Mini-Bag+) 100 ML IVPB SCH ×3 (01:35→23:28)
[2016-12-08] MEDS: Vancomycin 1,000 MG in D5% in Water 250 ML IVPB SCH ×3 (01:36→23:29)
[2016-12-08] MEDS: Ipratropium/Albuterol Neb 3 ML IH SCH ×5 (04:24→22:24)
[2016-12-08] MEDS: *HR* Morphine Sulfate SR (12 HR) 15 MG TABLET.ER PO SCH ×2 (06:48→17:39)
[2016-12-08] MEDS: *HR* Enoxaparin 40 MG/0.4 ML SYRINGE SQ SCH (06:48)
[2016-12-08 07:14] LABS: Magnesium 1.2 mg/dL (1.6-2.6); Phosphorous 2.5 mg/dL (2.3-4.7)
[2016-12-08] MEDS: Furosemide 40 MG/4 ML VIAL IVP SCH (09:41)
--- NOTE | 2016-12-08 15:23 | Internal Med Progress Note ---
Date of Encounter: 12/08/16 Time of Encounter: 15:18 - Assessment and plan (1) Metastatic cancer Current Visit: Yes Status: Acute Assessment and plan: 12/08/2016 sitting up in bed and able to drink water not willing to discuss anything about her cancer or treatment plan palliative on board will follow recommendations. K was low and replaced. 12/07/2016 patient is very upset and emotional palliative onboard will follow recommendations please see below regarding details Biopsy results suggest enteric adenocarcinoma However EGD and colonoscopy have not revealed a primary source. We did order a MRI of the abdomen with contrast 2 views of the pancreas to see if this is the source. However the patient did not tolerate this and the patient only had a MRI of the abdomen without contrast. Appreciate oncology's recommendations as to whether or not she needs further workup during this hospitalization. Most likely she will just need outpatient pets CT but will defer to oncology. she will follow up with oncology as outpatient (2) Hypoxemia Current Visit: Yes Status: Acute Assessment and plan: Secondary to community-acquired pneumonia. Currently she is on 3 L of oxygen. We will also had 2 nebs and incentive spirometry. On exam I do not hear any crepitus so I think this is less likely to be from pulmonary edema. However she is quite edematous so we will go ahead and give her some Lasix as well. (3) Cancer associated pain Current Visit: Yes Status: Acute Assessment and plan: currently well controlled (4) Jaundice Current Visit: Yes Status: Acute - Subjective Interval history: seen and examined patient is very upset and emotional palliative onboard will follow recommendations 12/08/2016 no new complaints very lethargic depressed. palliative onboard and will follow recommendations. - Constitutional Vitals: Temp Pulse Resp BP Pulse Ox 98 F 93 14 91/57 87 L 12/08/16 11:43 12/08/16 11:43 12/08/16 11:43 12/08/16 11:43 12/08/16 11:43 General appearance: Present: cachectic, A&O X 3 - Head Head exam: Present: atraumatic, normocephalic - Eye Eye exam: Present: PERRL, conjuntiva pink, sclera anicteric Pupils: Present: PERRL - Neck Neck exam general surgery: Present: supple, trachea midline. Absent: lymphadenopathy - Respiratory Respiratory exam: Present: CTAB. Absent: accessory muscle use, rales, rhonchi, wheezes - Cardiovascular Cardiovascular exam: Present: RRR, +S1, +S2. Absent: diastolic murmur, gallop, rubs, systolic murmur - GI/Abdominal GI/Abdominal exam: Present: normal bowel sounds, soft, no peritoneal signs. Absent: distended, tenderness - Extremities Exam Extremities exam: Present: warm, radial pulses palpable and symetrical. Absent : calf tenderness, cyanotic, pedal edema - Neurological Exam Neurological exam: Present: CN II-XII intact, oriented X3, no focal deficits. Absent: pronater drift, facial droop, speech deficit - Skin Skin exam: Present: dry, intact Internal Medicine: Result - Labs CBC & Chem 7: 12/07/16 01:09 12/07/16 01:09 - ABG Interpretation ABG results: PT/INR, D-dimer PT 14.0 Seconds (9.4-12.1) H 12/05/16 06:25 Consult Discharge Plan - Plan Referrals: Flor Hudson MD [Primary Care Provider] - (Office of Dr Hudson called and let staff know that patient will seen oncologist from here on... ) Osorio Ward MD [Partnered Physician] - (oncology will schedule once we figure out when patient will be discharged)
[2016-12-08] MEDS: Ondansetron 4 MG/2 ML VIAL IVP PRN (15:34)
[2016-12-08 16:05] LABS: Alanine Aminotransferase 35 Units/L (0-55); Albumin 0.9 g/dL (3.5-5.0); Albumin/Globulin Ratio 0.3 (1.1-2.2); Alkaline Phosphatase 328 Units/L (38-126); Aspartate Amino Transferase 51 Units/L (5-34); BUN/Creatinine Ratio 22 (6-26); Bilirubin,Total 7.9 mg/dL (0.2-1.2); Blood Urea Nitrogen 18 mg/dL (7-20); Calcium 8.5 mg/dL (8.6-10.8); Carbon Dioxide 22 mEq/L (19-29); Chloride 87 mEq/L (98-109); Globulin 3.2 g/dL (2.4-3.5); Total Protein 4.1 g/dL (6.0-8.3); eGFR For African Americans > 60 (> 60); eGFR For Non-African Americans > 60 (> 60)
[2016-12-08 16:17] LABS: Osmolality,Calculated 315 (280-300); Potassium 5.5 mEq/L (3.5-4.5)
[2016-12-08 16:23] LABS: Sodium 117 mEq/L (136-145)
[2016-12-08] MEDS: *HR* Morphine 2 MG/ML SYRINGE IVP PRN (16:32)
[2016-12-08] MEDS ORDERED: Clinimix E 5%-15% SOLUTION 2,000 ML with MVI, adult with vitamin K 10 ML, Calcium Glu... IV SCH (17:00)
[2016-12-08 17:16] LABS: Alanine Aminotransferase 42 Units/L (0-55); Albumin/Globulin Ratio 0.3 (1.1-2.2); Alkaline Phosphatase 398 Units/L (38-126); Aspartate Amino Transferase 60 Units/L (5-34); BUN/Creatinine Ratio 40 (6-26); Bilirubin,Total 9.1 mg/dL (0.2-1.2); Blood Urea Nitrogen 20 mg/dL (7-20); Calcium 7.7 mg/dL (8.6-10.8); Carbon Dioxide 27 mEq/L (19-29); Chloride 96 mEq/L (98-109); Globulin 3.7 g/dL (2.4-3.5); Glucose 148 mg/dL (70-99); Osmolality,Calculated 277 (280-300); Total Protein 4.8 g/dL (6.0-8.3); eGFR For African Americans > 60 (> 60); eGFR For Non-African Americans > 60 (> 60)
[2016-12-08 17:19] LABS: Glucose 1340 mg/dL (70-99)
[2016-12-08 17:23] LABS: Sodium 131 mEq/L (136-145)
[2016-12-08 17:24] LABS: Albumin 1.1 g/dL (3.5-5.0); Potassium 2.8 mEq/L (3.5-4.5)
[2016-12-08] MEDS: traMADol 50 MG TABLET PO PRN (18:14)
[2016-12-08] MEDS: Mirtazapine 15 MG TABLET PO SCH (23:30)
[2016-12-08] MEDS: Melatonin 3 MG TABLET PO SCH (23:30)
[2016-12-09] MEDS: Ipratropium/Albuterol Neb 3 ML IH SCH ×4 (03:50→22:47)
[2016-12-09 03:55] LABS: Hematocrit 26.9 % (35.3-44.9); Hemoglobin 9.1 g/dL (11.5-15.4); Mean Corpuscular HGB Conc 33.8 g/dL (31.6-35.5); Mean Corpuscular Volume 91.5 fL (83.0-100.0); Mean Platelet Volume 9.7 fL (9.4-12.4); Monocytes # 1.4 K/mcL (0.0-1.3); Platelet Count 159 K/mcL (140-400); Red Blood Count 2.94 M/mcL (3.82-4.97); Red Cell Distribution Width 17.7 % (11.5-14.5)
[2016-12-09 04:00] LABS: Ionized Calcium 1.2 mmol/L (1.15-1.35)
[2016-12-09 04:08] LABS: Magnesium 1.3 mg/dL (1.6-2.6); Phosphorous 2.4 mg/dL (2.3-4.7)
[2016-12-09 04:09] LABS: Alanine Aminotransferase 44 Units/L (0-55); Albumin/Globulin Ratio 0.3 (1.1-2.2); Alkaline Phosphatase 416 Units/L (38-126); Aspartate Amino Transferase 65 Units/L (5-34); BUN/Creatinine Ratio 42 (6-26); Bilirubin,Total 9.6 mg/dL (0.2-1.2); Blood Urea Nitrogen 21 mg/dL (7-20); Calcium 7.9 mg/dL (8.6-10.8); Carbon Dioxide 25 mEq/L (19-29); Chloride 97 mEq/L (98-109); Globulin 3.7 g/dL (2.4-3.5); Glucose 195 mg/dL (70-99); Osmolality,Calculated 274 (280-300); Potassium 3.9 mEq/L (3.5-4.5); Sodium 128 mEq/L (136-145); Total Protein 4.8 g/dL (6.0-8.3); eGFR For African Americans > 60 (> 60); eGFR For Non-African Americans > 60 (> 60)
[2016-12-09 04:10] LABS: Albumin 1.1 g/dL (3.5-5.0)
[2016-12-09 04:25] LABS: Lymphocytes # 0.5 K/mcL (0.6-4.6); Neutrophils # 21.6 K/mcL (1.6-8.9); Platelet Estimate Normal (Normal)
[2016-12-09 04:26] LABS: Anisocytosis 1+ (Not Present)
[2016-12-09] MEDS: Insulin LISPRO 300 UNITS/3 ML VIAL SQ SCH ×5 (05:43→18:56)
[2016-12-09] MEDS: *HR* Morphine Sulfate SR (12 HR) 15 MG TABLET.ER PO SCH ×2 (08:34→17:06)
[2016-12-09] MEDS: Furosemide 40 MG/4 ML VIAL IVP SCH (08:34)
[2016-12-09] MEDS: *HR* Enoxaparin 40 MG/0.4 ML SYRINGE SQ SCH (08:37)
[2016-12-09] MEDS: Cefepime HCl 1,000 MG in D5% in Water (Mini-Bag+) 100 ML IVPB SCH ×2 (10:39→23:05)
[2016-12-09] MEDS: *HR* Morphine Immed Rel 30 MG TABLET PO PRN (10:40)
[2016-12-09] MEDS ORDERED: Magnesium Sulfate 2 GM in D5% in Water 100 ML IVPB ONE (11:33)
[2016-12-09] MEDS: Vancomycin 750 MG in D5% in Water 250 ML IVPB SCH (13:21)
[2016-12-09] MEDS: traMADol 50 MG TABLET PO PRN (15:49)
--- NOTE | 2016-12-09 16:16 | Palliative Progress Note ---
Date of Encounter: 12/09/16 Time of Encounter: 16:15 - Assessment and plan (1) Cancer associated pain Current Visit: Yes Status: Acute Assessment and plan: Continue present treatment with MS Contin and IR Morphine. MOnitor (2) Anxiety Current Visit: Yes Status: Acute Assessment and plan: Continue Lorazepam and monitor (3) Nausea Current Visit: Yes Status: Acute (4) Diarrhea Current Visit: Yes Status: Acute Qualifiers: Qualified Code(s): R19.7 - Diarrhea, unspecified (5) Depression Current Visit: Yes Status: Acute Qualifiers: Qualified Code(s): F32.9 - Major depressive disorder, single episode, unspecified (6) Goals of care, counseling/discussion Current Visit: Yes Status: Acute Assessment and plan: Long discussion with pt, 2 sisters, and daughter Padmini. Nancy Srinivasan, oncology [employer] also present. Discussed current clinical status. Patient is adamant she does not want anything to do with rehab. Oncology discussed she is too ill and weak to tolerate chemotherapy at this point. Patient has decided to transition home with hospice care with family support. Code status transitioned to DNRCC. Family needs tomorrow to arrange caregivers. Anticipate d/c home on Friday. Will call referral to [facility] in am with DME information as well. D/W Dr. Mancuso (7) Metastatic cancer Current Visit: Yes Status: Acute - Time Spent With Patient Total time spent is greater than 50% in coordination of care (as documented) at patient's floor/unit and/or counseling patient: - Subjective Interval history: Patient awake and alert. 2 Sisters and daughter Padmini at bedside. Patient reports shortness of breath and extreme weakness. States pain controlled at present. Anxious and emotional. WBC continues to trend up despite antibiotics , and oxygen requirements have increased over the weekend. Albumin remains 1.1. Continues on TPN at this time. She has refused to work with therapy - Constitutional Vitals: Abnormal lab results WBC 23.5 K/mcL (4.3-11.1) H 12/09/16 03:48 RBC 2.94 M/mcL (3.82-4.97) L 12/09/16 03:48 Hgb 9.1 g/dL (11.5-15.4) L 12/09/16 03:48 Hct 26.9 % (35.3-44.9) L 12/09/16 03:48 RDW 17.7 % (11.5-14.5) H 12/09/16 03:48 Immature Gran % 4.3 % (0-4) H 12/06/16 06:12 Band Neutrophils % 6.0 % (0-4) H 12/09/16 03:48 Neutrophils # 21.6 K/mcL (1.6-8.9) H 12/09/16 03:48 Lymphocytes # 0.5 K/mcL (0.6-4.6) L 12/09/16 03:48 Monocytes # 1.4 K/mcL (0.0-1.3) H 12/09/16 03:48 Hypochromasia Present (Not Present) A 12/07/16 01:09 Anisocytosis 1+ (Not Present) A 12/09/16 03:48 Macrocytosis Present (Not Present) A 12/07/16 01:09 Tear Drop Cells 1+ (Not Present) A 12/07/16 01:09 Immature Retic Fraction 5.1 % (11.0-38.0) L 11/26/16 23:17 Retic Hgb Equivalent 39.3 pg (28.61-36.33) H 11/26/16 23:17 PT 14.0 Seconds (9.4-12.1) H 12/05/16 06:25 APTT 22.1 Seconds (26.0-36.0) L 11/26/16 06:14 Sodium 128 mEq/L (136-145) L 12/09/16 03:51 Chloride 97 mEq/L (98-109) L 12/09/16 03:51 BUN 21 mg/dL (7-20) H 12/09/16 03:51 Creatinine 0.50 mg/dL (0.57-1.11) L 12/09/16 03:51 BUN/Creatinine Ratio 42 (6-26) H 12/09/16 03:51 Glucose 195 mg/dL (70-99) H 12/09/16 03:51 POC Glucose 275 (58-89) H 12/09/16 15:43 Calculated Osmolality 274 (280-300) L 12/09/16 03:51 Calcium 7.9 mg/dL (8.6-10.8) L 12/09/16 03:51 Magnesium 1.3 mg/dL (1.6-2.6) L 12/09/16 03:48 Transferrin 140 mg/dL (180-382) L 11/26/16 23:17 Ferritin 2691 ng/ml (5-204) H 11/26/16 23:17 Total Bilirubin 9.6 mg/dL (0.2-1.2) H 12/09/16 03:51 Direct Bilirubin 8.4 mg/dL (0.0-0.5) H 12/07/16 01:09 Indirect Bilirubin 1.6 mg/dL (0.0-1.2) H 12/07/16 01:09 AST 65 Units/L (5-34) H 12/09/16 03:51 Alkaline Phosphatase 416 Units/L (38-126) H 12/09/16 03:51 Lactate Dehydrogenase 1622 Units/L (159-327) H 11/26/16 23:17 Serum Total Protein 4.8 g/dL (6.0-8.3) L 12/09/16 03:51 Albumin 1.1 g/dL (3.5-5.0) L 12/09/16 03:51 Albumin (PEP) 3.50 g/dL (3.75-5.01) L 11/26/16 23:17 Globulin 3.7 g/dL (2.4-3.5) H 12/09/16 03:51 Albumin/Globulin Ratio 0.3 (1.1-2.2) L 12/09/16 03:51 Prealbumin 5.0 mg/dL (16.0-38.0) L 12/03/16 05:45 Triglycerides 213 mg/dL (< 150) H 12/03/16 05:45 Carcinoembryonic Ag 1906.4 ng/mL (0-5.0) H 11/26/16 23:17 CA 19-9 Antigen 630086 U/mL (0-37) H 11/26/16 23:17 Vitamin B12 > 2000 pg/mL (213-816) H 11/26/16 23:17 Urine Color [place] (Yellow) A 11/29/16 12:30 Urine Clarity Cloudy (Clear) A 11/29/16 12:30 Urine Protein 30 mg/dL (Neg-Trace) H 11/29/16 12:30 Urine Ketones Trace mg/dL (Negative) H 11/29/16 12:30 Urine Bilirubin Large (Negative) H 11/29/16 12:30 Ur Leukocyte Esterase Large (Negative) H 11/29/16 12:30 Urine Microscopic RBC 3-5 per hpf (0-3) H 11/29/16 12:30 Urine Microscopic WBC 50-100 per hpf (0-3) H 11/29/16 12:30 Ur Squamous Epith Cells Many per lpf (None-Few) H 11/29/16 12:30 General appearance: Present: mild distress - Expanded Respiratory Exam Location: rales: Left, Right, Lower - Cardiovascular Cardiovascular exam: Present: +S1, +S2 - GI/Abdominal GI/Abdominal exam: Present: diminished bowel sounds, distended, firm, tenderness - Extremities Exam Additional comments: 2-3 + bilateral lower extremity edema. - Neurological Exam Neurological exam: Present: alert, oriented X3, strengths equal and symetr throughout - Skin Skin exam: Present: dry, warm Additional comments: jaundiced persists. Palliative Quality Palliative Quality: Screen for Code Status: NA (discuss later), Screen for Goals of Care: NA (awaiting biopsy), Screen for Pain: Yes, If Pain Regimen Started, Initiate Bowel Regimen: NA (diarrhea), Screen for Nausea/Vomitting: Yes Code Status: 11/27/16 11:52 CODE [Resuscitation Status: Active] [RES] Routine Comment: Resuscitation Status: [id number] - Labs CBC & Chem 7: 12/09/16 03:48 12/09/16 03:51 Labs: Laboratory Results - last 24 hr 12/08/16 12/08/16 12/08/16 07:47 11:42 15:30 WBC RBC Hgb Hct MCV MCH MCHC RDW Plt Count MPV Seg Neutrophils % Band Neutrophils % Lymphocytes % Monocytes % Neutrophils # Lymphocytes # Monocytes # Platelet Estimate Anisocytosis Sodium Potassium Chloride Carbon Dioxide BUN Creatinine Est GFR ( Amer) Est GFR (Non-Af Amer) BUN/Creatinine Ratio Glucose POC Glucose 227 H 221 H 158 H Calculated Osmolality Calcium Ionized Calcium Phosphorus Magnesium Total Bilirubin AST ALT Alkaline Phosphatase Serum Total Protein Albumin Globulin Albumin/Globulin Ratio Vancomycin Trough 12/08/16 12/08/16 12/08/16 15:42 16:32 16:54 WBC RBC Hgb Hct MCV MCH MCHC RDW Plt Count MPV Seg Neutrophils % Band Neutrophils % Lymphocytes % Monocytes % Neutrophils # Lymphocytes # Monocytes # Platelet Estimate Anisocytosis Sodium 117 L* D 131 L D Potassium 5.5 H D 2.8 L D Chloride 87 L 96 L Carbon Dioxide 22 27 BUN 18 20 Creatinine 0.82 D 0.50 L Est GFR ( Amer) > 60 > 60 Est GFR (Non-Af Amer) > 60 > 60 BUN/Creatinine Ratio 22 40 H Glucose 1340 H* 148 H POC Glucose 156 H Calculated Osmolality 315 H 277 L Calcium 8.5 L 7.7 L Ionized Calcium Phosphorus Magnesium Total Bilirubin 7.9 H 9.1 H AST 51 H 60 H ALT 35 42 Alkaline Phosphatase 328 H 398 H Serum Total Protein 4.1 L 4.8 L Albumin 0.9 L 1.1 L D Globulin 3.2 3.7 H Albumin/Globulin Ratio 0.3 L 0.3 L Vancomycin Trough 12/08/16 12/08/16 12/09/16 19:05 23:30 03:29 WBC RBC Hgb Hct MCV MCH MCHC RDW Plt Count MPV Seg Neutrophils % Band Neutrophils % Lymphocytes % Monocytes % Neutrophils # Lymphocytes # Monocytes # Platelet Estimate Anisocytosis Sodium Potassium Chloride Carbon Dioxide BUN Creatinine Est GFR ( Amer) Est GFR (Non-Af Amer) BUN/Creatinine Ratio Glucose POC Glucose 172 H 116 H 210 H Calculated Osmolality Calcium Ionized Calcium Phosphorus Magnesium Total Bilirubin AST ALT Alkaline Phosphatase Serum Total Protein Albumin Globulin Albumin/Globulin Ratio Vancomycin Trough 12/09/16 12/09/16 12/09/16 03:48 03:48 03:51 WBC 23.5 H RBC 2.94 L Hgb 9.1 L Hct 26.9 L MCV 91.5 MCH 31.0 MCHC 33.8 RDW 17.7 H Plt Count 159 MPV 9.7 Seg Neutrophils % 86.0 Band Neutrophils % 6.0 H Lymphocytes % 2.0 Monocytes % 6.0 Neutrophils # 21.6 H Lymphocytes # 0.5 L Monocytes # 1.4 H Platelet Estimate Normal Anisocytosis 1+ A Sodium 128 L Potassium 3.9 D Chloride 97 L Carbon Dioxide 25 BUN 21 H Creatinine 0.50 L Est GFR ( Amer) > 60 Est GFR (Non-Af Amer) > 60 BUN/Creatinine Ratio 42 H Glucose 195 H POC Glucose Calculated Osmolality 274 L Calcium 7.9 L Ionized Calcium 1.20 Phosphorus 2.4 Magnesium 1.3 L Total Bilirubin 9.6 H AST 65 H ALT 44 Alkaline Phosphatase 416 H Serum Total Protein 4.8 L Albumin 1.1 L Globulin 3.7 H Albumin/Globulin Ratio 0.3 L Vancomycin Trough 12/09/16 12/09/16 10:39 15:43 WBC RBC Hgb Hct MCV MCH MCHC RDW Plt Count MPV Seg Neutrophils % Band Neutrophils % Lymphocytes % Monocytes % Neutrophils # Lymphocytes # Monocytes # Platelet Estimate Anisocytosis Sodium Potassium Chloride Carbon Dioxide BUN Creatinine Est GFR ( Amer) Est GFR (Non-Af Amer) BUN/Creatinine Ratio Glucose POC Glucose 275 H Calculated Osmolality Calcium Ionized Calcium Phosphorus Magnesium Total Bilirubin AST ALT Alkaline Phosphatase Serum Total Protein Albumin Globulin Albumin/Globulin Ratio Vancomycin Trough 19.9 - ABG Interpretation ABG results: PT/INR, D-dimer PT 14.0 Seconds (9.4-12.1) H 12/05/16 06:25 Consult Discharge Plan - Plan Referrals: Flor Hudson MD [Primary Care Provider] - (Office of Dr Hudson called and let staff know that patient will seen oncologist from here on... ) Osorio Ward MD [Partnered Physician] - (oncology will schedule once we figure out when patient will be discharged)
--- NOTE | 2016-12-09 16:59 | Internal Med Progress Note ---
Date of Encounter: 12/09/16 Time of Encounter: 16:57 - Assessment and plan (1) Metastatic cancer Current Visit: Yes Status: Acute Assessment and plan: 12/09/2016 family at bedside palliative/oncology and family had long discussion DNRCCA Home hospice on Friday family requested no more further work up and labs. 12/08/2016 sitting up in bed and able to drink water not willing to discuss anything about her cancer or treatment plan palliative on board will follow recommendations. K was low and replaced. 12/07/2016 patient is very upset and emotional palliative onboard will follow recommendations please see below regarding details Biopsy results suggest enteric adenocarcinoma However EGD and colonoscopy have not revealed a primary source. We did order a MRI of the abdomen with contrast 2 views of the pancreas to see if this is the source. However the patient did not tolerate this and the patient only had a MRI of the abdomen without contrast. Appreciate oncology's recommendations as to whether or not she needs further workup during this hospitalization. Most likely she will just need outpatient pets CT but will defer to oncology. she will follow up with oncology as outpatient (2) Hypoxemia Current Visit: Yes Status: Acute Assessment and plan: Secondary to community-acquired pneumonia. Currently she is on 3 L of oxygen. We will also had 2 nebs and incentive spirometry. On exam I do not hear any crepitus so I think this is less likely to be from pulmonary edema. However she is quite edematous so we will go ahead and give her some Lasix as well. (3) Cancer associated pain Current Visit: Yes Status: Acute Assessment and plan: currently well controlled (4) Jaundice Current Visit: Yes Status: Acute - Subjective Interval history: seen and examined patient is very upset and emotional palliative onboard will follow recommendations 12/08/2016 no new complaints very lethargic depressed. palliative onboard and will follow recommendations. 12/09/2016 no new complaints family at bedside palliative/oncology and family had long discussion DNRCCA Home hospice on Friday - Constitutional Vitals: Temp Pulse Resp BP Pulse Ox 97.8 F 87 17 85/56 81 L 12/09/16 16:01 12/09/16 16:01 12/09/16 16:01 12/09/16 16:01 12/09/16 16:01 General appearance: Present: cachectic, A&O X 3 - Head Head exam: Present: atraumatic, normocephalic - Eye Eye exam: Present: PERRL, conjuntiva pink, sclera anicteric Pupils: Present: PERRL - Neck Neck exam general surgery: Present: supple, trachea midline. Absent: lymphadenopathy - Respiratory Respiratory exam: Present: CTAB. Absent: accessory muscle use, rales, rhonchi, wheezes - Cardiovascular Cardiovascular exam: Present: RRR, +S1, +S2. Absent: diastolic murmur, gallop, rubs, systolic murmur - GI/Abdominal GI/Abdominal exam: Present: normal bowel sounds, soft, no peritoneal signs. Absent: distended, tenderness - Extremities Exam Extremities exam: Present: warm, radial pulses palpable and symetrical. Absent : calf tenderness, cyanotic, pedal edema - Neurological Exam Neurological exam: Present: CN II-XII intact, oriented X3, no focal deficits. Absent: pronater drift, facial droop, speech deficit - Skin Skin exam: Present: dry, intact Internal Medicine: Result - Labs CBC & Chem 7: 12/09/16 03:48 12/09/16 03:51 Labs: Short CBC 12/09/16 Range/Units 03:48 WBC 23.5 H (4.3-11.1) K/mcL Hgb 9.1 L (11.5-15.4) g/dL Hct 26.9 L (35.3-44.9) % Plt Count 159 (140-400) K/mcL Neutrophils # 21.6 H (1.6-8.9) K/mcL BMP 12/08/16 12/08/16 12/09/16 15:42 16:54 03:51 Sodium 117 L* D 131 L D 128 L Potassium 5.5 H D 2.8 L D 3.9 D Chloride 87 L 96 L 97 L Carbon Dioxide 22 27 25 BUN 18 20 21 H Creatinine 0.82 D 0.50 L 0.50 L Glucose 1340 H* 148 H 195 H Calcium 8.5 L 7.7 L 7.9 L Liver Function 12/08/16 12/08/16 12/09/16 Range/Units 15:42 16:54 03:51 Total Bilirubin 7.9 H 9.1 H 9.6 H (0.2-1.2) mg/dL AST 51 H 60 H 65 H (5-34) Units/L ALT 35 42 44 (0-55) Units/L Alkaline Phosphatase 328 H 398 H 416 H (38-126) Units/L Albumin 0.9 L 1.1 L D 1.1 L (3.5-5.0) g/dL - ABG Interpretation ABG results: PT/INR, D-dimer PT 14.0 Seconds (9.4-12.1) H 12/05/16 06:25 Consult Discharge Plan - Plan Referrals: Flor Hudson MD [Primary Care Provider] - (Office of Dr Hudson called and let staff know that patient will seen oncologist from here on... ) Osorio Ward MD [Partnered Physician] - (oncology will schedule once we figure out when patient will be discharged)
[2016-12-09] MEDS ORDERED: Clinimix E 5%-15% SOLUTION 2,000 ML with MVI, adult with vitamin K 10 ML, Magnesium S... IV SCH (17:00)
[2016-12-09] MEDS: Mirtazapine 15 MG TABLET PO SCH (23:05)
[2016-12-09] MEDS: Melatonin 3 MG TABLET PO SCH (23:05)
[2016-12-10] MEDS: traMADol 50 MG TABLET PO PRN (01:15)
[2016-12-10] MEDS: *HR* LORazepam 0.5 MG TABLET PO PRN (03:56)
[2016-12-10] MEDS: Ipratropium/Albuterol Neb 3 ML IH SCH ×4 (04:33→22:03)
[2016-12-10 04:44] LABS: Eosinophils % 0.3 %; Hemoglobin 8.8 g/dL (11.5-15.4); Mean Corpuscular HGB Conc 33.8 g/dL (31.6-35.5)
[2016-12-10 04:45] LABS: Basophils # 0.1 K/mcL (0.0-0.2); Basophils % 0.2 %; Eosinophils # 0.1 K/mcL (0.0-0.6); Immature Granulocytes % 6.7 % (0-4); Lymphocytes # 0.6 K/mcL (0.6-4.6); Lymphocytes % 2.1 %; Mean Corpuscular Hemoglobin 31.4 pg (28.0-33.3); Mean Corpuscular Volume 92.9 fL (83.0-100.0); Mean Platelet Volume 10.5 fL (9.4-12.4); Monocytes # 1.5 K/mcL (0.0-1.3); Monocytes % 5.3 %; Neutrophils # 24.4 K/mcL (1.6-8.9); Platelet Count 157 K/mcL (140-400); Red Cell Distribution Width 17.8 % (11.5-14.5); Segmented Neutrophils % 85.4 %
[2016-12-10 05:11] LABS: Magnesium 1.6 mg/dL (1.6-2.6); Phosphorous 2.4 mg/dL (2.3-4.7)
[2016-12-10 05:13] LABS: Alanine Aminotransferase 50 Units/L (0-55); Albumin 1.1 g/dL (3.5-5.0); Albumin/Globulin Ratio 0.3 (1.1-2.2); Alkaline Phosphatase 442 Units/L (38-126); Aspartate Amino Transferase 76 Units/L (5-34); BUN/Creatinine Ratio 44 (6-26); Bilirubin,Total 9.4 mg/dL (0.2-1.2); Blood Urea Nitrogen 22 mg/dL (7-20); Calcium 7.9 mg/dL (8.6-10.8); Carbon Dioxide 23 mEq/L (19-29); Chloride 95 mEq/L (98-109); Globulin 3.9 g/dL (2.4-3.5); Glucose 240 mg/dL (70-99); Osmolality,Calculated 277 (280-300); Potassium 3.3 mEq/L (3.5-4.5); Sodium 128 mEq/L (136-145); eGFR For African Americans > 60 (> 60); eGFR For Non-African Americans > 60 (> 60)
[2016-12-10 05:14] LABS: Platelet Estimate Normal (Normal)
[2016-12-10] MEDS: *HR* Morphine Sulfate SR (12 HR) 15 MG TABLET.ER PO SCH ×2 (06:36→16:30)
[2016-12-10] MEDS: *HR* Enoxaparin 40 MG/0.4 ML SYRINGE SQ SCH ×2 (06:37→06:52)
[2016-12-10] MEDS: Insulin LISPRO 300 UNITS/3 ML VIAL SQ SCH ×6 (07:49→23:03)
[2016-12-10] MEDS: Vancomycin 750 MG in D5% in Water 250 ML IVPB SCH ×3 (07:54→23:50)
[2016-12-10] MEDS: Furosemide 40 MG/4 ML VIAL IVP SCH (09:01)
[2016-12-10] MEDS: Cefepime HCl 1,000 MG in D5% in Water (Mini-Bag+) 100 ML IVPB SCH ×2 (12:32→22:52)
[2016-12-10] MEDS ORDERED: Aminoglycoside Consult 1 EACH MC ONE (14:10)
--- NOTE | 2016-12-10 15:41 | Event Note ---
Date of Encounter: 12/10/16 Time of Encounter: 15:30 Patient has been sleeping x3 when I visited today. I awakened her at my last visit, and she was upset and refused to speak with me. I spoke with daughter and son n law - bed to be delivered tomorrow before noon. Should be able to be discharged tomorrow afternoon. Will send hospice scripts in am to pharmacy.
--- NOTE | 2016-12-10 16:20 | Internal Med Progress Note ---
<Elizabet Chi - Last Filed: 12/10/16 17:33> Date of Encounter: 12/10/16 Time of Encounter: 09:15 - Assessment and plan (1) Metastatic cancer Current Visit: Yes Status: Acute Assessment and plan: Adenocarcinoma Patient has requested to be DNRCCA, will be discharged to Home hospice on Friday. Family requested no more further work up and labs. (2) Cancer associated pain Current Visit: Yes Status: Acute Assessment and plan: Patient has been started on MS contin and Morphine for breakthrough pain. Continue tramadol. Palliative on board. Appreciate input. (3) Hypoxemia Current Visit: Yes Status: Acute Assessment and plan: Secondary to community-acquired pneumonia. titrate oxygen as needed. (4) Jaundice Current Visit: Yes Status: Acute - Subjective Interval history: Patient seen and examined. She did not note any complaints, however she only mumbles responses. Awaiting discharge to hospice care. - Constitutional Vitals: Temp Pulse Resp BP Pulse Ox 97.5 F L 89 24 119/73 91 L 12/10/16 04:10 12/10/16 07:44 12/10/16 07:44 12/10/16 04:10 12/10/16 09:05 General appearance: Present: cachectic, mild distress - Head Head exam: Present: atraumatic, normocephalic - Eye Eye exam: Present: scleral icterus - ENT ENT exam: Present: mucous membranes dry - Respiratory Respiratory exam: Present: CTAB. Absent: accessory muscle use, rales, rhonchi, wheezes - Cardiovascular Cardiovascular exam: Present: RRR, +S1, +S2. Absent: diastolic murmur, gallop, rubs, systolic murmur - GI/Abdominal GI/Abdominal exam: Present: firm, hypoactive bowel sounds, tenderness, no peritoneal signs. Absent: distended - Extremities Exam Extremities exam: Present: calf tenderness, pedal edema, warm, radial pulses palpable and symetrical - Psychiatric Psychiatric exam: Present: depressed, flat affect - Skin Skin exam: Present: diaphoretic, warm. Absent: cyanosis, erythema Additional comments: jaundice Internal Medicine: Result - Labs CBC & Chem 7: 12/10/16 04:35 12/10/16 04:35 Labs: Short CBC 12/10/16 Range/Units 04:35 WBC 28.6 H (4.3-11.1) K/mcL Hgb 8.8 L (11.5-15.4) g/dL Hct 26.0 L (35.3-44.9) % Plt Count 157 (140-400) K/mcL Neutrophils # 24.4 H (1.6-8.9) K/mcL BMP 12/10/16 04:35 Sodium 128 L Potassium 3.3 L Chloride 95 L Carbon Dioxide 23 BUN 22 H Creatinine 0.50 L Glucose 240 H Calcium 7.9 L Liver Function 12/10/16 Range/Units 04:35 Total Bilirubin 9.4 H (0.2-1.2) mg/dL AST 76 H (5-34) Units/L ALT 50 (0-55) Units/L Alkaline Phosphatase 442 H (38-126) Units/L Albumin 1.1 L (3.5-5.0) g/dL - ABG Interpretation ABG results: PT/INR, D-dimer PT 14.0 Seconds (9.4-12.1) H 12/05/16 06:25 Consult Discharge Plan - Plan Referrals: Flor Hudson MD [Primary Care Provider] - (Office of Dr Hudson called and let staff know that patient will seen oncologist from here on... ) Osorio Ward MD [Partnered Physician] - (oncology will schedule once we figure out when patient will be discharged) <Clay Harris - Last Filed: 12/10/16 18:09> - Assessment and plan (1) Cancer associated pain Current Visit: Yes Status: Acute (2) Metastatic cancer Current Visit: Yes Status: Acute (3) Hypokalemia Current Visit: Yes Status: Acute (4) Hyponatremia Current Visit: Yes Status: Acute (5) Jaundice Current Visit: Yes Status: Acute (6) Severe protein-calorie malnutrition Current Visit: Yes Status: Acute (7) Transaminitis Current Visit: Yes Status: Acute - Constitutional Vitals: Temp Pulse Resp BP Pulse Ox 97.9 F 92 16 97/64 95 12/10/16 16:22 12/10/16 16:22 12/10/16 16:22 12/10/16 16:22 12/10/16 16:22 Internal Medicine: Result - Labs CBC & Chem 7: 12/10/16 04:35 12/10/16 04:35 Labs: Short CBC 12/10/16 Range/Units 04:35 WBC 28.6 H (4.3-11.1) K/mcL Hgb 8.8 L (11.5-15.4) g/dL Hct 26.0 L (35.3-44.9) % Plt Count 157 (140-400) K/mcL Neutrophils # 24.4 H (1.6-8.9) K/mcL BMP 12/10/16 04:35 Sodium 128 L Potassium 3.3 L Chloride 95 L Carbon Dioxide 23 BUN 22 H Creatinine 0.50 L Glucose 240 H Calcium 7.9 L Liver Function 12/10/16 Range/Units 04:35 Total Bilirubin 9.4 H (0.2-1.2) mg/dL AST 76 H (5-34) Units/L ALT 50 (0-55) Units/L Alkaline Phosphatase 442 H (38-126) Units/L Albumin 1.1 L (3.5-5.0) g/dL - ABG Interpretation ABG results: PT/INR, D-dimer PT 14.0 Seconds (9.4-12.1) H 12/05/16 06:25 - Attending Attestation I examined this patient and my medical decision-making was reviewed with the Resident Physician on 12/10/16. I agree with the documented findings, disposition and treatment plan as described except to the extent set forth below. Ms. Cornelius is currently admitted for a new diagnosis of metastatic cancer. She is moderate risk due to potential for overall decline. She is to go home with hospice tomorrow. Ms. Cornelius is resting at this time. No complaints but not very conversant. Exam Arousable Heart reg Lungs clear but diminished I/P 1. Metastatic cancer 2. YU Further diagnoses and plan as above. D/C tomorrow.
[2016-12-10] MEDS: Melatonin 3 MG TABLET PO SCH (20:45)
[2016-12-10] MEDS: Mirtazapine 15 MG TABLET PO SCH (20:45)
[2016-12-10] MEDS: Ondansetron 4 MG/2 ML VIAL IVP PRN (23:45)
[2016-12-11] MEDS: *HR* Morphine 2 MG/ML SYRINGE IVP PRN (00:28)
[2016-12-11] MEDS: Insulin LISPRO 300 UNITS/3 ML VIAL SQ SCH ×2 (02:21→05:52)
[2016-12-11] MEDS: *HR* LORazepam 0.5 MG TABLET PO PRN ×2 (03:59→17:41)
[2016-12-11] MEDS: Ipratropium/Albuterol Neb 3 ML IH SCH ×3 (04:12→15:54)
[2016-12-11] MEDS: *HR* Morphine Sulfate SR (12 HR) 15 MG TABLET.ER PO SCH ×2 (05:44→16:32)
[2016-12-11] MEDS: *HR* Enoxaparin 40 MG/0.4 ML SYRINGE SQ SCH (05:49)
[2016-12-11] MEDS ORDERED: traMADol 50 MG TABLET PO PRN (09:15)
[2016-12-11] MEDS: Furosemide 40 MG/4 ML VIAL IVP SCH (09:22)
[2016-12-11] MEDS: *HR* Morphine Immed Rel 30 MG TABLET PO PRN ×2 (09:32→18:09)
--- NOTE | 2016-12-11 10:35 | Palliative Progress Note ---
Date of Encounter: 12/11/16 Time of Encounter: 09:35 - Assessment and plan (1) Cancer associated pain Current Visit: Yes Status: Acute Assessment and plan: Will continue MS Contin and oral Morphine IR on discharge. Will also give script for Roxanol, as she may get to the point she is unable to swallow medications. (2) Anxiety Current Visit: Yes Status: Acute Assessment and plan: Continue Lorazepam - order intensol for discharge (3) Nausea Current Visit: Yes Status: Acute (4) Diarrhea Current Visit: Yes Status: Acute Qualifiers: Diarrhea type: unspecified type Qualified Code(s): R19.7 - Diarrhea, unspecified (5) Depression Current Visit: Yes Status: Acute Qualifiers: Depression Type: unspecified Qualified Code(s): F32.9 - Major depressive disorder, single episode, unspecified (6) Goals of care, counseling/discussion Current Visit: Yes Status: Acute Assessment and plan: Patient to be discharged home with [facility] later this afternoon. D/W Dr. Harris. She appears much weaker and family has been prepared that she may pass away within a short period of time. Prescriptions completed for hospice comfort meds and faxed to pharmacy. Patient's sister to remain at house for DME setup and then will come here to hospital for enrollment and meeting with hospice nurse. Will D/C PICC prior to discharge. Patient is agreeable to vega placement today prior to discharge as she it is becoming difficult for her to transfer to bedside commode. (7) Metastatic cancer Current Visit: Yes Status: Acute - Time Spent With Patient Total time spent is greater than 50% in coordination of care (as documented) at patient's floor/unit and/or counseling patient: Greater than 35 minutes - Subjective Interval history: Patient awake, very weak and speaks in a whisper. Some speech difficult to understand. C/o abd pain and awaiting pain medication. WBC continued to elevate yesterday, oxygen requirements have increased. NO family currently present. - Constitutional Vitals: Abnormal lab results WBC 28.6 K/mcL (4.3-11.1) H 12/10/16 04:35 RBC 2.80 M/mcL (3.82-4.97) L 12/10/16 04:35 Hgb 8.8 g/dL (11.5-15.4) L 12/10/16 04:35 Hct 26.0 % (35.3-44.9) L 12/10/16 04:35 RDW 17.8 % (11.5-14.5) H 12/10/16 04:35 Immature Gran % 6.7 % (0-4) H 12/10/16 04:35 Band Neutrophils % 6.0 % (0-4) H 12/09/16 03:48 Neutrophils # 24.4 K/mcL (1.6-8.9) H 12/10/16 04:35 Monocytes # 1.5 K/mcL (0.0-1.3) H 12/10/16 04:35 Hypochromasia Present (Not Present) A 12/07/16 01:09 Anisocytosis 1+ (Not Present) A 12/09/16 03:48 Macrocytosis Present (Not Present) A 12/07/16 01:09 Tear Drop Cells 1+ (Not Present) A 12/07/16 01:09 Immature Retic Fraction 5.1 % (11.0-38.0) L 11/26/16 23:17 Retic Hgb Equivalent 39.3 pg (28.61-36.33) H 11/26/16 23:17 PT 14.0 Seconds (9.4-12.1) H 12/05/16 06:25 APTT 22.1 Seconds (26.0-36.0) L 11/26/16 06:14 Sodium 128 mEq/L (136-145) L 12/10/16 04:35 Potassium 3.3 mEq/L (3.5-4.5) L 12/10/16 04:35 Chloride 95 mEq/L (98-109) L 12/10/16 04:35 BUN 22 mg/dL (7-20) H 12/10/16 04:35 Creatinine 0.50 mg/dL (0.57-1.11) L 12/10/16 04:35 BUN/Creatinine Ratio 44 (6-26) H 12/10/16 04:35 Glucose 240 mg/dL (70-99) H 12/10/16 04:35 POC Glucose 169 (58-89) H 12/10/16 16:20 Calculated Osmolality 277 (280-300) L 12/10/16 04:35 Calcium 7.9 mg/dL (8.6-10.8) L 12/10/16 04:35 Transferrin 140 mg/dL (180-382) L 11/26/16 23:17 Ferritin 2691 ng/ml (5-204) H 11/26/16 23:17 Total Bilirubin 9.4 mg/dL (0.2-1.2) H 12/10/16 04:35 Direct Bilirubin 8.4 mg/dL (0.0-0.5) H 12/07/16 01:09 Indirect Bilirubin 1.6 mg/dL (0.0-1.2) H 12/07/16 01:09 AST 76 Units/L (5-34) H 12/10/16 04:35 Alkaline Phosphatase 442 Units/L (38-126) H 12/10/16 04:35 Lactate Dehydrogenase 1622 Units/L (159-327) H 11/26/16 23:17 Serum Total Protein 5.0 g/dL (6.0-8.3) L 12/10/16 04:35 Albumin 1.1 g/dL (3.5-5.0) L 12/10/16 04:35 Albumin (PEP) 3.50 g/dL (3.75-5.01) L 11/26/16 23:17 Globulin 3.9 g/dL (2.4-3.5) H 12/10/16 04:35 Albumin/Globulin Ratio 0.3 (1.1-2.2) L 12/10/16 04:35 Prealbumin 5.0 mg/dL (16.0-38.0) L 12/03/16 05:45 Triglycerides 213 mg/dL (< 150) H 12/03/16 05:45 Carcinoembryonic Ag 1906.4 ng/mL (0-5.0) H 11/26/16 23:17 CA 19-9 Antigen [id number] U/mL (0-37) H 11/26/16 23:17 Vitamin B12 > 2000 pg/mL (213-816) H 11/26/16 23:17 Urine Color Martin (Yellow) A 11/29/16 12:30 Urine Clarity Cloudy (Clear) A 11/29/16 12:30 Urine Protein 30 mg/dL (Neg-Trace) H 11/29/16 12:30 Urine Ketones Trace mg/dL (Negative) H 11/29/16 12:30 Urine Bilirubin Large (Negative) H 11/29/16 12:30 Ur Leukocyte Esterase Large (Negative) H 11/29/16 12:30 Urine Microscopic RBC 3-5 per hpf (0-3) H 11/29/16 12:30 Urine Microscopic WBC 50-100 per hpf (0-3) H 11/29/16 12:30 Ur Squamous Epith Cells Many per lpf (None-Few) H 11/29/16 12:30 General appearance: Present: no acute distress - Respiratory Additional comments: Few scattered rhonci, shallow inspiratory effort - Cardiovascular Cardiovascular exam: Present: +S1, +S2 - GI/Abdominal Additional comments: RUQ firmness remains. Tender to palpation - Extremities Exam Additional comments: 2-3 + edema lower extremities - Neurological Exam Additional comments: Oriented to name and place. - Skin Skin exam: Present: dry, warm Additional comments: Jaundiced Palliative Quality Palliative Quality: Screen for Code Status: Yes, Screen for Goals of Care: Yes, Screen for Pain: Yes, If Pain Regimen Started, Initiate Bowel Regimen: NA ( diarrhea), Screen for Nausea/Vomitting: Yes Code Status: 11/27/16 11:52 CODE [Resuscitation Status: Active] [RES] Routine Comment: Resuscitation Status: [id number] 12/09/16 16:33 DNR [Resuscitation Status: Active] [RES] Routine Comment: Resuscitation Status: DNR-Comfort Care - Labs CBC & Chem 7: 12/10/16 04:35 12/10/16 04:35 Labs: Laboratory Results - last 24 hr 12/09/16 12/09/16 12/10/16 18:42 23:02 16:20 POC Glucose 182 H 227 H 169 H Vancomycin Trough 12/10/16 23:02 POC Glucose Vancomycin Trough 17.2 - ABG Interpretation ABG results: PT/INR, D-dimer PT 14.0 Seconds (9.4-12.1) H 12/05/16 06:25 Consult Discharge Plan - Plan Referrals: Flor Hudson MD [Primary Care Provider] - (Office of Dr Hudson called and let staff know that patient will seen oncologist from here on... ) Osorio Ward MD [Partnered Physician] - (oncology will schedule once we figure out when patient will be discharged) Prescriptions: Hyoscyamine SL [Levsin SL] 0.125 mg SL Q4HR #12 tab.subl Morphine Sulfate SR (12 HR) [MS Contin] 30 mg PO Q12HR #8 tablet.er Haloperidol Oral Conc [Haldol] 1 mg SL Q4H PRN #15 mls PRN Reason: Agitation LORazepam Oral Conc [Ativan Oral Conc] 0.5 - 1 mg PO Q4H PRN #20 mls PRN Reason: Anxiety Morphine Immed Rel [Morphine Sulfate] 15 mg PO Q4H PRN #24 tablet PRN Reason: Breakthrough Pain Morphine Oral CONC [Roxanol] 5 - 10 mg PO Q1H PRN #20 oral.syg PRN Reason: Shortness Of Breath Sennosides [Senokot] 8.6 mg PO BID #8 tablet
[2016-12-11 15:09] LABS: Colon Cancer Gene Specimen 17SM-2247 A1
--- NOTE | 2016-12-11 15:46 | Discharge Summary ---
<Phu Chi - Last Filed: 12/11/16 16:54> Date of Encounter: 12/11/16 Time of Encounter: 13:00 - Discharge Diagnosis (1) Cancer associated pain Priority: Primary Status: Acute (2) Hypoxemia Priority: Secondary Status: Acute (3) Jaundice Priority: Secondary Status: Acute (4) Metastatic cancer Priority: Primary Status: Acute - Discharge Medications Prescriptions: Hyoscyamine SL [Levsin SL] 0.125 mg SL Q4HR #12 tab.subl Morphine Sulfate SR (12 HR) [MS Contin] 30 mg PO Q12HR #8 tablet.er Haloperidol Oral Conc [Haldol] 1 mg SL Q4H PRN #15 mls PRN Reason: Agitation LORazepam Oral Conc [Ativan Oral Conc] 0.5 - 1 mg PO Q4H PRN #20 mls PRN Reason: Anxiety Morphine Immed Rel [Morphine Sulfate] 15 mg PO Q4H PRN #24 tablet PRN Reason: Breakthrough Pain Morphine Oral CONC [Roxanol] 5 - 10 mg PO Q1H PRN #20 oral.syg PRN Reason: Shortness Of Breath Sennosides [Senokot] 8.6 mg PO BID #8 tablet Home Medications: Dicyclomine [Dicyclomine] 20 mg PO Q8H PRN 11/26/16 [History] Furosemide [Lasix] 40 mg PO DAILY 11/26/16 [History] Insulin Glargine,Hum.rec.anlog [Lantus Solostar] 10 unit SQ HS 11/26/16 [History ] Metformin HCl [Metformin HCl ER] 500 mg PO BID 11/26/16 [History] Morphine Sulfate [Morphine Sulfate] 15 mg PO Q4H PRN 11/26/16 [History] Potassium Chloride [Potassium Chloride] 20 meq PO BID 11/26/16 [History] Sennosides/Docusate Sodium [Senna Plus] 1 each PO BID PRN 11/26/16 [History] Simvastatin [Zocor] 20 mg PO DAILY 11/26/16 [History] Spironolact/Hydrochlorothiazid [Aldactazide 25-25 Tablet] 1 each PO BID [History] Haloperidol Oral Conc [Haldol] 1 mg SL Q4H PRN #15 mls 12/11/16 [Rx] Hyoscyamine SL [Levsin SL] 0.125 mg SL Q4HR #12 tab.subl 12/11/16 [Rx] LORazepam Oral Conc [Ativan Oral Conc] 0.5 - 1 mg PO Q4H PRN #20 mls 12/11/16 [ Rx] Morphine Immed Rel [Morphine Sulfate] 15 mg PO Q4H PRN #24 tablet 12/11/16 [Rx] Morphine Oral CONC [Roxanol] 5 - 10 mg PO Q1H PRN #20 oral.syg 12/11/16 [Rx] Morphine Sulfate SR (12 HR) [MS Contin] 30 mg PO Q12HR #8 tablet.er 12/11/16 [Rx ] Sennosides [Senokot] 8.6 mg PO BID #8 tablet 12/11/16 [Rx] Allergies/Adverse Reactions: Allergies ciprofloxacin [From Cipro] Allergy (Verified 11/25/16 19:50) Rash Sulfa (Sulfonamide Antibiotics) Allergy (Verified 11/25/16 19:50) Rash codeine Adverse Reaction (Verified 11/25/16 19:50) Itching Date of admission: 11/26/16 12:07 Primary care physician: Flor Hudson Consults: 11/27/16 10:45 Consult to Gastroenterology [CONS] Routine Consulting Provider: Gastroenterology Shoshana Reason for Consult: Hyperbilirubinemia Call Completed: Yes 12/02/16 12:20 Consult to Invasive Line Access Team [CONS] Routine Reason for Consult: Picc Line Insertion Line Type: PICC 12/04/16 14:58 Consult to Physical Therapy [CONS] Routine Comment: Evaluate, develop and implement POC OT [Consult to Occupational Therapy] [CONS] Routine Comment: Evaluate, develop and implement POC Discharging clinician: Phu Chi Anticipated date of discharge: 12/11/16 - Patient Status Disposition: Hospice - Home Condition: Fair Overall status at discharge: patient is not back to baseline - Discharge Instructions Follow Up With: Flor Hudson MD [Primary Care Provider] - (Office of Dr Hudson called and let staff know that patient will seen oncologist from here on... ) Osorio Ward MD [Partnered Physician] - (oncology will schedule once we figure out when patient will be discharged) - Diet and Activity Activity: resume usual activities as tolerated Diet: regular diet Interval History: Ms. Cornelius 66yo F admitted for fatigue and weakness, weight loss and jaundice with pmhx metastatic cancer of unknown originating origin with metastatic cyst to the lungs, liver, gallbladder demonstrated on imaging. Patient was scheduled for a biopsy at [facility] but was unable to follow-up. Patient was admitted to general medical floor with palliative care, interventional radiology and hematology/oncology consult. She demonstrated hypokalemia (2.0) and acute kidney injury with hyperbilirubinemia (Total adilson 20.1). [facility] evaluation showed CA19-9 elevated at [id number]. Patient underwent CT-guided biopsy on 2016, gastroenterology was consult and for hyperbilirubinemia and suspected obstructive jaundice secondary to cancer and ms. Cornelius underwent ERCP with stent placements on 11/29/2016. 12/02/2016: Liver biopsy returned positive for metastatic carcinoma from and enteric primary (+ve CK7, CK 20,CDX2 , -ve TTF-1,GATA3) CEA 1905. Patient underwent colonoscopy on 12/02/2016 with poor visualization due to excess stool. 12/03/2069 patient was started on TPN due to poor oral intake and severe protein caloric malnutrition. 12/05/2016: New bilateral opacities seen on CXR, start Vancomycin and CEfipime. 12/06/2016 attempt of abdominal MRI with contrast to view was not successful as patient was able unable to tolerate. 12/09/2016 Mrs. Cornelius and family decided to transition CODE STATUS to DNR-CC, home hospice and needed supplies were arranged to be delivered the patient home. On 12/11/2016 after home hospice was arranged and needed equipment was delivered patient was discharged home. Hospital course: Ms. Cornelius is a 66 year old female - Time Spent with Patient Total time spent providing and/or coordinating discharge services: - Constitutional Vitals: Temp Pulse Resp BP Pulse Ox 97.9 F 94 16 77/49 97 12/11/16 12:21 12/11/16 12:21 12/11/16 12:21 12/11/16 12:21 12/11/16 12:21 General appearance: Present: cachectic, mild distress - Head Head exam: Present: atraumatic, normocephalic - Eye Eye exam: Present: scleral icterus - ENT ENT exam: Present: mucous membranes dry - Respiratory Respiratory exam: Present: CTAB. Absent: accessory muscle use, rales, rhonchi, wheezes - Cardiovascular Cardiovascular exam: Present: RRR, +S1, +S2. Absent: diastolic murmur, gallop, rubs, systolic murmur - GI/Abdominal GI/Abdominal exam: Present: firm, hypoactive bowel sounds, tenderness, no peritoneal signs - Extremities Exam Extremities exam: Present: pedal edema, tenderness, warm, radial pulses palpable and symetrical - Neurological Exam Neurological exam: Present: alert - Psychiatric Psychiatric exam: Present: depressed, flat affect <Clay Harris - Last Filed: 12/11/16 18:34> - Discharge Diagnosis (1) Cancer associated pain Status: Acute (2) Metastatic cancer Status: Acute (3) Hypokalemia Priority: Secondary Status: Acute (4) Hyponatremia Priority: Secondary Status: Acute (5) Jaundice Status: Acute (6) Severe protein-calorie malnutrition Priority: Secondary Status: Acute (7) Transaminitis Priority: Secondary Status: Acute Date of admission: 11/26/16 12:07 Primary care physician: Flor Hudson Consults: 11/27/16 10:45 Consult to Gastroenterology [CONS] Routine Consulting Provider: Gastroenterology Shoshana Reason for Consult: Hyperbilirubinemia Call Completed: Yes 12/02/16 12:20 Consult to Invasive Line Access Team [CONS] Routine Reason for Consult: Picc Line Insertion Line Type: PICC 12/04/16 14:58 Consult to Physical Therapy [CONS] Routine Comment: Evaluate, develop and implement POC OT [Consult to Occupational Therapy] [CONS] Routine Comment: Evaluate, develop and implement POC Hospital course: Ms. Cornelius is a 66 year old female - Time Spent with Patient Total time spent providing and/or coordinating discharge services: 20min - Constitutional Vitals: Temp Pulse Resp BP Pulse Ox 97.9 F 90 12 94/61 96 12/11/16 16:27 12/11/16 16:27 12/11/16 16:27 12/11/16 16:27 12/11/16 16:27 - Attending Attestation I examined this patient and my medical decision-making was reviewed with the Resident Physician on 12/11/16. I agree with the documented findings, disposition and treatment plan as described except to the extent set forth below. Ms. Cornelius is set up for Hospice at home. Exam Comfortable. Alert Mucus membranes dry No wheeze Plan D/C home today with hospice.
--- NOTE | 2016-12-11 15:50 | Event Note ---
Date of Encounter: 12/11/16 Time of Encounter: 15:46 Hospice medical stenographer certification of terminal illness: Hospice benefit. Start:12/11/2016 Hospice benefit. In: +90 days Palliative performance scale: 20-30% History: Issue with recent history of metastatic adenocarcinoma, which has progressed very rapidly with a major decline in palliative performance scale. Patient and family do not wish any further aggressive care and no further workup therefore I find These findings support a life expectancy of 6 months or less. I attest that I have compose the above narrative based on my review of the patient's medical records, and or on my examination of the patient. Ronny Rodriguez M.D. Associate biomedical equipment specialist. [facility]
--- NOTE | 2016-12-11 15:54 | Physician Discharge Referral ---
Home Health/Hosp Referral Info Transfer to: Hospice Provider in Charge Post Discharge: PCP - Diagnosis (1) Cancer associated pain Priority: Primary Status: Acute (2) Hypoxemia Priority: Secondary Status: Acute (3) Jaundice Priority: Secondary Status: Acute (4) Metastatic cancer Priority: Primary Status: Acute - Respiratory Orders Smoking Cessation: Smoking cessation has been advised. For more information, call the [place] Tobacco Quit Line at 5-489-XVQV-NOW. - Diet/Nutrition Diet/Nutrition Orders: Regular - Activity Activity Orders: Ambulate - Services Needed Following services are medically necessary services: Nursing, Home Health Aide - Transfer Medications Prescriptions: Hyoscyamine SL [Levsin SL] 0.125 mg SL Q4HR #12 tab.subl Morphine Sulfate SR (12 HR) [MS Contin] 30 mg PO Q12HR #8 tablet.er Haloperidol Oral Conc [Haldol] 1 mg SL Q4H PRN #15 mls PRN Reason: Agitation LORazepam Oral Conc [Ativan Oral Conc] 0.5 - 1 mg PO Q4H PRN #20 mls PRN Reason: Anxiety Morphine Immed Rel [Morphine Sulfate] 15 mg PO Q4H PRN #24 tablet PRN Reason: Breakthrough Pain Morphine Oral CONC [Roxanol] 5 - 10 mg PO Q1H PRN #20 oral.syg PRN Reason: Shortness Of Breath Sennosides [Senokot] 8.6 mg PO BID #8 tablet Home Medications: Dicyclomine [Dicyclomine] 20 mg PO Q8H PRN 11/26/16 [History] Furosemide [Lasix] 40 mg PO DAILY 11/26/16 [History] Insulin Glargine,Hum.rec.anlog [Lantus Solostar] 10 unit SQ HS 11/26/16 [History ] Metformin HCl [Metformin HCl ER] 500 mg PO BID 11/26/16 [History] Morphine Sulfate [Morphine Sulfate] 15 mg PO Q4H PRN 11/26/16 [History] Potassium Chloride [Potassium Chloride] 20 meq PO BID 11/26/16 [History] Sennosides/Docusate Sodium [Senna Plus] 1 each PO BID PRN 11/26/16 [History] Simvastatin [Zocor] 20 mg PO DAILY 11/26/16 [History] Spironolact/Hydrochlorothiazid [Aldactazide 25-25 Tablet] 1 each PO BID [History] Haloperidol Oral Conc [Haldol] 1 mg SL Q4H PRN #15 mls 12/11/16 [Rx] Hyoscyamine SL [Levsin SL] 0.125 mg SL Q4HR #12 tab.subl 12/11/16 [Rx] LORazepam Oral Conc [Ativan Oral Conc] 0.5 - 1 mg PO Q4H PRN #20 mls 12/11/16 [ Rx] Morphine Immed Rel [Morphine Sulfate] 15 mg PO Q4H PRN #24 tablet 12/11/16 [Rx] Morphine Oral CONC [Roxanol] 5 - 10 mg PO Q1H PRN #20 oral.syg 12/11/16 [Rx] Morphine Sulfate SR (12 HR) [MS Contin] 30 mg PO Q12HR #8 tablet.er 12/11/16 [Rx ] Sennosides [Senokot] 8.6 mg PO BID #8 tablet 12/11/16 [Rx] Allergies/Adverse Reactions: Allergies ciprofloxacin [From Cipro] Allergy (Verified 11/25/16 19:50) Rash Sulfa (Sulfonamide Antibiotics) Allergy (Verified 11/25/16 19:50) Rash codeine Adverse Reaction (Verified 11/25/16 19:50) Itching Certification: Further, I certify that my clinical findings support that this patient is homebound (i.e. absences from home require considerable and taxing effort and are for medical reasons or restorationist services or infrequently or short duration when for other reasons) because: Homebound Reason: Patient requires assistance of a person or device to safely leave home, Leaving home requires considerable and taxing effort due to condition Attestation: My signature below is to certify that this patient is under my care and that I, or nurse practitioner, or a physician's pharmacy innovation assistant working with me, has a face-to -face encounter with this patient.
[2016-12-11 16:28] VITALS: BP 94/61
[2016-12-13 14:55] LABS: AGL Flow Result See EMR document.
== END 2016-12-11 18:20 | disposition hospice, home (50) | DRG 180 ==
LOC: EMEROO 19:14 → 2ANU 19:14 → SUATTDRO 11-26 12:07 → 2ANU 11-30 23:54
PROVIDERS: ADMIT Pediatrics; ATTEND Internal Medicine
PROC: ENDOCBX (2016-12-05 14:30)